=== PATIENT | male | born 1935 | race African-American/Black ===

== ENCOUNTER 2018-06-09 06:25 | Inpatient (IN) | payer SELFPAY ==
[~2018-06-09] VITALS: Ht 182.9 cm; Wt 93.1 kg
[2018-06-09] MEDS ORDERED: SODIUM CHLORIDE 0.9% 500 ML IV ONE (07:20)
[2018-06-09 07:44] LABS: BASOPHILS % 0.2 % (0.0-2.0); EOSINOPHILS % 0.1 % (0.0-5.0); HEMATOCRIT. 46.3 % (42.0-52.0); HEMOGLOBIN. 15.2 g/dL (14.0-18.0); LYMPHOCYTES % 12.7 % (20.0-50.0); MEAN CORPUSCULAR HEMOGLOBIN 29.3 pg (28.0-32.0); MEAN CORPUSCULAR VOLUME 89.6 fL (80.0-94.0); MEAN PLATELET VOLUME 7.2 fl (7.4-10.4); MONOCYTES % 4.8 % (2.0-8.0); NEUTROPHILS % 82.2 % (40.0-76.0); PLATELET 185 x1000/uL (130-400); RED BLOOD CELL COUNT 5.17 mill/uL (4.7-6.1); RED CELL DISTRIBUTION WIDTH 15.8 % (11.6-14.6)
[2018-06-09 07:50] LABS: CHLORIDE 100 mEq/L (98-107)
[2018-06-09 07:55] LABS: ETHANOL BLOOD < 10 mg/dL
[2018-06-09 09:21] LABS: CLARITY URINE CLEAR (CLEAR); COLOR URINE YELLOW (YELLOW); KETONES URINE NEGATIVE (NEGATIVE); LEUKOCYTE ESTERASE URINE 2+ (NEGATIVE); NITRITE URINE POSITIVE (NEGATIVE); OCCULT BLOOD URINE 1+ (NEGATIVE); PH URINE 7.5 (4.5-8.0); PROTEIN URINE 1+ (NEGATIVE); SPECIFIC GRAVITY URINE 1.013 (1.005-1.030)
[2018-06-09 09:37] LABS: METHADONE URINE SCREEN NEGATIVE (NEGATIVE); OPIATES URINE SCREEN NEGATIVE (NEGATIVE)
[2018-06-09 09:38] LABS: *AMPHETAMINES SCREEN URINE NEGATIVE (NEGATIVE); *BARBITURATES SCREEN URINE NEGATIVE (NEGATIVE); *BENZODIAZEPINES SCREEN URINE NEGATIVE (NEGATIVE); *COCAINE SCREEN URINE NEGATIVE (NEGATIVE); CANNABINOID URINE SCREEN NEGATIVE (NEGATIVE); PHENCYCLIDINE URINE SCREEN NEGATIVE (NEGATIVE)
[2018-06-09] MEDS ORDERED: SODIUM CHLORIDE 0.9% 1,000 ML IV ONE (10:04)
[2018-06-09] MEDS ORDERED: LEVOFLOXACIN 750MG PREMIX 150 ML IV ONE (10:15)
[2018-06-09 11:00] VITALS: BP 143/61
[2018-06-09] MEDS ORDERED: LEVE250T2 MT (12:25)
[2018-06-09] MEDS ORDERED: LOSA25TA12 MT (12:25)
[2018-06-09] MEDS ORDERED: ATOR-2 MT (12:25)
[2018-06-09] MEDS ORDERED: ALBU2.5V13 NEB (12:25)
[2018-06-09] MEDS ORDERED: TAMS0.4C31 MT (12:25)
[2018-06-09] MEDS ORDERED: TIOT18CA3 INH (12:25)
[2018-06-09] MEDS ORDERED: METO25TA6 MT (12:25)
[2018-06-09] MEDS ORDERED: CLOP75TA33 MT (12:25)
[2018-06-09] MEDS ORDERED: FAMO20TA8 MT (12:25)
[2018-06-09] MEDS ORDERED: ASPI-1159 MT (12:25)
[2018-06-09] MEDS ORDERED: ALBUTEROL (0.083%) 2.5MG/3ML NEB HHN PRN (13:30)
[2018-06-09] MEDS ORDERED: BUDESONIDE 0.5MG/2ML NEB HHN SCH ×2 (14:00)
[2018-06-09] MEDS ORDERED: DIATR MEGLU/DIATRIZOATE SOLN 30ML ONE (14:16)
[2018-06-09] MEDS ORDERED: LIDOCAINE HCL 1% 20ML VIAL (Pyxis) INJ ONE (14:16)
[2018-06-09 16:00] VITALS: BP 144/69
[2018-06-09] MEDS ORDERED: MAGNESIUM/ALUMINUM HYDROXIDE/SIMETHICONE 30ML UDC PO PRN (16:45)
[2018-06-09] MEDS ORDERED: DEXTROSE 50% WATER 50ML SYRINGE IV PRN (16:45)
[2018-06-09] MEDS: LEVETIRACETAM 250MG TABLET GT SCH ×2 (17:41→21:07)
[2018-06-09] MEDS: LOSARTAN POTASSIUM 25 MG TABLET PO SCH (17:41)
[2018-06-09] MEDS: TAMSULOSIN HCL 0.4MG SR CAPSULE PO SCH (17:41)
[2018-06-09 18:07] LABS: T4 FREE 1.25 ng/dL (0.76-1.46)
[2018-06-09 18:35] LABS: FOLIC ACID (FOLATE) SERUM 19.5 ng/mL (>5.38)
[2018-06-09] MEDS: ENOXAPARIN 40MG/0.4ML SYR SUBCUT SCH (18:37)
[2018-06-09 20:00] VITALS: BP 150/97
[2018-06-09] MEDS ORDERED: ATORVASTATIN CALCIUM 40MG TABLET PO SCH (21:00)
[2018-06-09] MEDS: FAMOTIDINE 20MG TABLET PO SCH (21:07)
[2018-06-09] MEDS: METOPROLOL TARTRATE 25MG TABLET PO SCH (21:07)
[2018-06-09] MEDS: SODIUM CHLORIDE 0.9% INJ 3ML FLUSH IVF SCH (21:07)
[2018-06-09] MEDS: SODIUM CHLORIDE 0.9% 1,000 ML IV SCH (21:15)
[2018-06-10] VITALS (43 sets, daily range): BP systolic 94–207; BP diastolic 43–110
[2018-06-10] MEDS: SODIUM CHLORIDE 0.9% INJ 3ML FLUSH IVF SCH ×3 (06:49→22:00)
[2018-06-10] MEDS: CLOPIDOGREL 75MG TABLET PO SCH (08:54)
[2018-06-10] MEDS: LEVETIRACETAM 250MG TABLET GT SCH ×2 (08:54→22:15)
[2018-06-10] MEDS: TAMSULOSIN HCL 0.4MG SR CAPSULE PO SCH (08:55)
[2018-06-10] MEDS: METOPROLOL TARTRATE 25MG TABLET PO SCH ×3 (08:55→22:16)
[2018-06-10] MEDS: ASPIRIN 81MG TABLET PO SCH (08:56)
[2018-06-10] MEDS: LOSARTAN POTASSIUM 25 MG TABLET PO SCH (08:56)
[2018-06-10] MEDS ORDERED: LEVOFLOXACIN 500MG PREMIX 100 ML IV SCH (09:00)
[2018-06-10 09:27] LABS: HEMOGLOBIN. 15.3 g/dL (14.0-18.0); MEAN CORPUSCULAR VOLUME 92.2 fL (80.0-94.0); MEAN PLATELET VOLUME 7.2 fl (7.4-10.4); PLATELET 112 x1000/uL (130-400); RED BLOOD CELL COUNT 5.09 mill/uL (4.7-6.1); RED CELL DISTRIBUTION WIDTH 15.4 % (11.6-14.6)
[2018-06-10 09:59] LABS: CHLORIDE 103 mEq/L (98-107)
[2018-06-10] MEDS: ACETAMINOPHEN 650MG/20.3ML UDC GT PRN (10:16)
[2018-06-10 11:29] LABS: PLATELET ESTIMATE SLIGHTLY DECREASED
[2018-06-10] MEDS: SODIUM CHLORIDE 0.9% 1,000 ML IV SCH ×3 (11:37→21:23)
[2018-06-10] MEDS ORDERED: NITROPRUSSIDE 50 MG in DEXT 5% WATER 248 ML IV PRN (14:00)
[2018-06-10] MEDS ORDERED: LIDOCAINE HCL 1% 20ML VIAL (Pyxis) INJ ONE (14:08)
[2018-06-10] MEDS ORDERED: DILTIAZEM HCL 5MG/ML 5ML VIAL IV NR (14:10)
[2018-06-10] MEDS ORDERED: DILTIAZEM HCL 125 MG in DEXT 5% WATER 100 ML IV PRN (14:15)
[2018-06-10] MEDS ORDERED: CLONIDINE 0.1MG TABLET PO PRN (14:15)
[2018-06-10] MEDS: CEFTAZIDIME PENTAHYDRATE 1 G in DEXTROSE 5% WATER 50 ML IV SCH ×2 (15:45→23:14)
[2018-06-10] MEDS: DIPHENHYDRAMINE 50MG/ML VIAL IV PRN (17:22)
[2018-06-10] MEDS: DOCUSATE SODIUM 100MG CAPSULE PO PRN (17:22)
[2018-06-10] MEDS: DILTIAZEM HCL 60MG TABLET PO SCH ×2 (17:23→23:15)
[2018-06-10] MEDS: ENOXAPARIN 40MG/0.4ML SYR SUBCUT SCH (17:24)
[2018-06-10] MEDS: ATORVASTATIN CALCIUM 40MG TABLET PO SCH (22:15)
[2018-06-10] MEDS: FAMOTIDINE 20MG TABLET PO SCH (22:15)
[2018-06-11] VITALS (43 sets, daily range): BP systolic 95–167; BP diastolic 26–106
[2018-06-11] MEDS: DIPHENHYDRAMINE 50MG/ML VIAL IV PRN (02:06)
[2018-06-11] MEDS: SODIUM CHLORIDE 0.9% 1,000 ML IV SCH ×4 (05:23→22:07)
[2018-06-11] MEDS: SODIUM CHLORIDE 0.9% INJ 3ML FLUSH IVF SCH ×3 (05:27→22:07)
[2018-06-11] MEDS: DILTIAZEM HCL 60MG TABLET PO SCH ×2 (06:00→12:00)
[2018-06-11 06:28] LABS: BASOPHILS % 0.2 % (0.0-2.0); EOSINOPHILS % 0.1 % (0.0-5.0); HEMOGLOBIN. 10.9 g/dL (14.0-18.0); MEAN CORPUSCULAR HEMOGLOBIN 29.2 pg (28.0-32.0); MEAN CORPUSCULAR VOLUME 88.3 fL (80.0-94.0); MEAN PLATELET VOLUME 7.9 fl (7.4-10.4); MONOCYTES % 11.8 % (2.0-8.0); NEUTROPHILS % 77.9 % (40.0-76.0); PLATELET 116 x1000/uL (130-400); RED BLOOD CELL COUNT 3.74 mill/uL (4.7-6.1); RED CELL DISTRIBUTION WIDTH 15.2 % (11.6-14.6)
[2018-06-11 06:52] LABS: CHLORIDE 108 mEq/L (98-107)
[2018-06-11 07:17] LABS: CREATINE KINASE 593 IU/L (39-308); LDL CHOLESTEROL 23 mg/dL (5-100)
[2018-06-11 07:18] LABS: HDL CHOLESTEROL 16 mg/dL (40-59)
[2018-06-11 07:21] LABS: CREATINE KINASE MB FRACTION 1.5 ng/mL (0.5-3.6)
[2018-06-11] MEDS: TAMSULOSIN HCL 0.4MG SR CAPSULE PO SCH (09:03)
[2018-06-11] MEDS: CEFTAZIDIME PENTAHYDRATE 1 G in DEXTROSE 5% WATER 50 ML IV SCH (09:03)
[2018-06-11] MEDS: CLOPIDOGREL 75MG TABLET PO SCH (09:04)
[2018-06-11] MEDS: ASPIRIN 81MG TABLET PO SCH (09:04)
[2018-06-11] MEDS: LOSARTAN POTASSIUM 25 MG TABLET PO SCH (09:04)
[2018-06-11] MEDS: METOPROLOL TARTRATE 25MG TABLET PO SCH ×2 (09:04→22:05)
[2018-06-11] MEDS: LEVETIRACETAM 250MG TABLET GT SCH (09:07)
[2018-06-11] MEDS ORDERED: MAGNESIUM 1 G PREMIX 100 ML IV NR ×2 (12:00→17:00)
[2018-06-11] MEDS ORDERED: POTASSIUM CHLORIDE 20MEQ/PACKET PO NR (15:30)
[2018-06-11 16:30] LABS: PHOSPHORUS 2.3 mg/dL (2.5-4.9)
[2018-06-11] MEDS: ENOXAPARIN 40MG/0.4ML SYR SUBCUT SCH (17:20)
[2018-06-11] MEDS: CEFAZOLIN 1000MG PREMIX 50 ML IV SCH (17:20)
[2018-06-11] MEDS ORDERED: CEFAZOLIN 1000MG PREMIX 50 ML IV SCH (18:00)
[2018-06-11 19:15] LABS: HEMATOCRIT 43.9 % (42.0-52.0); HEMOGLOBIN 14.3 g/dL (14.0-18.0)
[2018-06-11] MEDS ORDERED: RISPERIDONE 0.25MG TABLET PO SCH (21:00)
[2018-06-11] MEDS: ATORVASTATIN CALCIUM 40MG TABLET PO SCH (22:04)
[2018-06-11] MEDS: LEVETIRACETAM 500MG/5ML CUP GT SCH (22:04)
[2018-06-11] MEDS: FAMOTIDINE 20MG TABLET PO SCH (22:06)
[2018-06-12] VITALS (20 sets, daily range): BP systolic 84–168; BP diastolic 56–144
[2018-06-12] MEDS: CLONIDINE 0.1MG TABLET PO PRN ×2 (01:27→16:37)
[2018-06-12] MEDS: CEFAZOLIN 1000MG PREMIX 50 ML IV SCH ×3 (01:27→17:27)
[2018-06-12] MEDS: SODIUM CHLORIDE 0.9% 1,000 ML IV SCH ×3 (05:23→22:49)
[2018-06-12 06:05] LABS: BASOPHILS % 0.3 % (0.0-2.0); EOSINOPHILS % 0.7 % (0.0-5.0); HEMATOCRIT. 37.8 % (42.0-52.0); HEMOGLOBIN. 12.5 g/dL (14.0-18.0); MEAN CORPUSCULAR HEMOGLOBIN 29.5 pg (28.0-32.0); MEAN CORPUSCULAR VOLUME 88.8 fL (80.0-94.0); MEAN PLATELET VOLUME 7.9 fl (7.4-10.4); MONOCYTES % 13.4 % (2.0-8.0); NEUTROPHILS % 73.6 % (40.0-76.0); PLATELET 134 x1000/uL (130-400); RED BLOOD CELL COUNT 4.25 mill/uL (4.7-6.1); RED CELL DISTRIBUTION WIDTH 15.3 % (11.6-14.6)
[2018-06-12 06:16] LABS: CHLORIDE 108 mEq/L (98-107)
[2018-06-12] MEDS: SODIUM CHLORIDE 0.9% INJ 3ML FLUSH IVF SCH ×3 (07:33→22:53)
[2018-06-12] MEDS: DIPHENHYDRAMINE 50MG/ML VIAL IV PRN ×2 (08:47→16:08)
[2018-06-12] MEDS: LOSARTAN POTASSIUM 25 MG TABLET PO SCH (08:49)
[2018-06-12] MEDS: CLOPIDOGREL 75MG TABLET PO SCH (08:49)
[2018-06-12] MEDS: ASPIRIN 81MG TABLET PO SCH (08:49)
[2018-06-12] MEDS: FAMOTIDINE 20MG TABLET PO SCH ×2 (08:49→22:23)
[2018-06-12] MEDS: LEVETIRACETAM 500MG/5ML CUP GT SCH ×2 (08:49→22:23)
[2018-06-12] MEDS: METOPROLOL TARTRATE 25MG TABLET PO SCH ×2 (08:50→22:23)
[2018-06-12] MEDS: TAMSULOSIN HCL 0.4MG SR CAPSULE PO SCH (08:52)
[2018-06-12] MEDS ORDERED: DONE23TA3 PO (09:26)
[2018-06-12] MEDS: RISPERIDONE 0.5MG TABLET PO SCH (09:58)
[2018-06-12] MEDS ORDERED: LORAZEPAM 2MG/ML CPJ IV PRN (10:30)
[2018-06-12] MEDS: ENOXAPARIN 40MG/0.4ML SYR SUBCUT SCH (17:27)
[2018-06-12] MEDS: ATORVASTATIN CALCIUM 40MG TABLET PO SCH (22:22)
[2018-06-13] VITALS (13 sets, daily range): BP systolic 107–216; BP diastolic 53–116
[2018-06-13] MEDS: CEFAZOLIN 1000MG PREMIX 50 ML IV SCH ×3 (02:11→17:02)
[2018-06-13] MEDS: SODIUM CHLORIDE 0.9% INJ 3ML FLUSH IVF SCH ×3 (06:42→22:22)
[2018-06-13 07:10] LABS: BASOPHILS % 0.3 % (0.0-2.0); EOSINOPHILS % 0.3 % (0.0-5.0); HEMATOCRIT. 37.1 % (42.0-52.0); HEMOGLOBIN. 12.5 g/dL (14.0-18.0); LYMPHOCYTES % 9.7 % (20.0-50.0); MEAN CORPUSCULAR HEMOGLOBIN 29.4 pg (28.0-32.0); MEAN CORPUSCULAR VOLUME 87.3 fL (80.0-94.0); MEAN PLATELET VOLUME 7.6 fl (7.4-10.4); MONOCYTES % 8.7 % (2.0-8.0); PLATELET 126 x1000/uL (130-400); RED BLOOD CELL COUNT 4.25 mill/uL (4.7-6.1); RED CELL DISTRIBUTION WIDTH 15.1 % (11.6-14.6)
[2018-06-13] MEDS: SODIUM CHLORIDE 0.9% 1,000 ML IV SCH ×2 (07:41→13:46)
[2018-06-13 07:59] LABS: CHLORIDE 108 mEq/L (98-107)
[2018-06-13] MEDS: ASPIRIN 81MG TABLET PO SCH (08:28)
[2018-06-13] MEDS: LEVETIRACETAM 500MG/5ML CUP GT SCH ×2 (08:28→20:14)
[2018-06-13] MEDS: FAMOTIDINE 20MG TABLET PO SCH ×2 (08:29→20:14)
[2018-06-13] MEDS: METOPROLOL TARTRATE 25MG TABLET PO SCH ×3 (08:29→21:50)
[2018-06-13] MEDS: TAMSULOSIN HCL 0.4MG SR CAPSULE PO SCH (08:29)
[2018-06-13] MEDS: LOSARTAN POTASSIUM 25 MG TABLET PO SCH (08:29)
[2018-06-13] MEDS: RISPERIDONE 0.5MG TABLET PO SCH (08:29)
[2018-06-13] MEDS: CLOPIDOGREL 75MG TABLET PO SCH (08:31)
[2018-06-13] MEDS: ACETAMINOPHEN 650MG/20.3ML UDC GT PRN (12:44)
[2018-06-13] MEDS: HYDRALAZINE 20MG/ML VIAL IV PRN (12:52)
[2018-06-13] MEDS ORDERED: DILTIAZEM HCL 5MG/ML 5ML VIAL IV PRN (14:15)
[2018-06-13] MEDS: DEXT 5%/0.9% NACL 1,000 ML IV SCH (14:32)
[2018-06-13] MEDS ORDERED: DILTIAZEM HCL 5MG/ML 5ML VIAL IV NR (16:15)
[2018-06-13] MEDS: DILTIAZEM HCL 125 MG in DEXT 5% WATER 100 ML IV SCH (16:37)
[2018-06-13] MEDS: ENOXAPARIN 40MG/0.4ML SYR SUBCUT SCH (17:01)
[2018-06-13] MEDS: ATORVASTATIN CALCIUM 40MG TABLET PO SCH (20:14)
[2018-06-14] VITALS (12 sets, daily range): BP systolic 118–157; BP diastolic 47–113
[2018-06-14] MEDS: CEFAZOLIN 1000MG PREMIX 50 ML IV SCH ×3 (03:17→19:00)
[2018-06-14] MEDS: SODIUM CHLORIDE 0.9% INJ 3ML FLUSH IVF SCH ×3 (05:04→21:42)
[2018-06-14] MEDS: DEXT 5%/0.9% NACL 1,000 ML IV SCH (06:27)
[2018-06-14] MEDS: DILTIAZEM HCL 125 MG in DEXT 5% WATER 100 ML IV SCH (06:57)
[2018-06-14 07:05] LABS: BASOPHILS % 0.4 % (0.0-2.0); EOSINOPHILS % 0.3 % (0.0-5.0); HEMATOCRIT. 34.1 % (42.0-52.0); HEMOGLOBIN. 11.8 g/dL (14.0-18.0); LYMPHOCYTES % 13.9 % (20.0-50.0); MEAN CORPUSCULAR HEMOGLOBIN 30.2 pg (28.0-32.0); MEAN CORPUSCULAR VOLUME 86.9 fL (80.0-94.0); MONOCYTES % 13.1 % (2.0-8.0); NEUTROPHILS % 72.3 % (40.0-76.0); PLATELET 112 x1000/uL (130-400); RED BLOOD CELL COUNT 3.93 mill/uL (4.7-6.1); RED CELL DISTRIBUTION WIDTH 15.6 % (11.6-14.6)
[2018-06-14 07:16] LABS: CHLORIDE 108 mEq/L (98-107)
[2018-06-14] MEDS: METOPROLOL TARTRATE 25MG TABLET PO SCH ×2 (09:15→20:21)
[2018-06-14] MEDS: DOCUSATE SODIUM 100MG CAPSULE PO PRN (09:15)
[2018-06-14] MEDS: TAMSULOSIN HCL 0.4MG SR CAPSULE PO SCH (09:15)
[2018-06-14] MEDS: LEVETIRACETAM 500MG/5ML CUP GT SCH ×2 (09:15→20:20)
[2018-06-14] MEDS: ASPIRIN 81MG TABLET PO SCH (09:15)
[2018-06-14] MEDS: CLOPIDOGREL 75MG TABLET PO SCH (09:16)
[2018-06-14] MEDS: FAMOTIDINE 20MG TABLET PO SCH ×2 (09:16→20:21)
[2018-06-14] MEDS: LOSARTAN POTASSIUM 25 MG TABLET PO SCH (09:16)
[2018-06-14] MEDS: DILTIAZEM HCL 60MG TABLET PO SCH ×2 (12:54→19:01)
[2018-06-14] MEDS: DIPHENHYDRAMINE 50MG/ML VIAL IV PRN (12:54)
[2018-06-14] MEDS: ACETAMINOPHEN 650MG/20.3ML UDC GT PRN (12:55)
[2018-06-14] MEDS: ENOXAPARIN 40MG/0.4ML SYR SUBCUT SCH (19:01)
[2018-06-14] MEDS: ATORVASTATIN CALCIUM 40MG TABLET PO SCH (20:20)
[2018-06-15] VITALS (15 sets, daily range): BP systolic 132–200; BP diastolic 58–98
[2018-06-15] MEDS: DILTIAZEM HCL 60MG TABLET PO SCH ×4 (00:33→17:23)
[2018-06-15] MEDS: DEXT 5%/0.9% NACL 1,000 ML IV SCH ×2 (00:34→09:03)
[2018-06-15] MEDS: CEFAZOLIN 1000MG PREMIX 50 ML IV SCH ×3 (01:06→17:29)
[2018-06-15] MEDS: SODIUM CHLORIDE 0.9% INJ 3ML FLUSH IVF SCH ×3 (05:22→21:50)
[2018-06-15] MEDS: LEVETIRACETAM 500MG/5ML CUP GT SCH ×2 (08:59→21:00)
[2018-06-15] MEDS: CLOPIDOGREL 75MG TABLET PO SCH (09:00)
[2018-06-15] MEDS: LOSARTAN POTASSIUM 25 MG TABLET PO SCH (09:00)
[2018-06-15] MEDS: ASPIRIN 81MG TABLET PO SCH (09:00)
[2018-06-15] MEDS: TAMSULOSIN HCL 0.4MG SR CAPSULE PO SCH (09:00)
[2018-06-15] MEDS: METOPROLOL TARTRATE 25MG TABLET PO SCH ×2 (09:00→21:00)
[2018-06-15] MEDS: FAMOTIDINE 20MG TABLET PO SCH ×2 (09:00→21:00)
[2018-06-15] MEDS: ENOXAPARIN 40MG/0.4ML SYR SUBCUT SCH (17:00)
[2018-06-15] MEDS: HYDRALAZINE 20MG/ML VIAL IV PRN ×2 (17:33→23:06)
[2018-06-15] MEDS: RISPERIDONE 0.25MG TABLET PO SCH (21:00)
[2018-06-15] MEDS: ATORVASTATIN CALCIUM 40MG TABLET PO SCH (21:00)
[2018-06-16] VITALS (12 sets, daily range): BP systolic 133–161; BP diastolic 59–85
[2018-06-16] MEDS: CEFAZOLIN 1000MG PREMIX 50 ML IV SCH ×3 (04:57→17:48)
[2018-06-16] MEDS: SODIUM CHLORIDE 0.9% INJ 3ML FLUSH IVF SCH ×3 (04:57→21:18)
[2018-06-16] MEDS: DILTIAZEM HCL 60MG TABLET PO SCH ×4 (04:58→17:46)
[2018-06-16] MEDS: DEXT 5%/0.9% NACL 1,000 ML IV SCH (05:01)
[2018-06-16 06:40] LABS: BASOPHILS % 0.3 % (0.0-2.0); EOSINOPHILS % 1.2 % (0.0-5.0); HEMATOCRIT. 35.8 % (42.0-52.0); HEMOGLOBIN. 12.2 g/dL (14.0-18.0); LYMPHOCYTES % 16.7 % (20.0-50.0); MEAN CORPUSCULAR HEMOGLOBIN 29.5 pg (28.0-32.0); MEAN CORPUSCULAR VOLUME 86.2 fL (80.0-94.0); MEAN PLATELET VOLUME 8.1 fl (7.4-10.4); MONOCYTES % 13.5 % (2.0-8.0); NEUTROPHILS % 68.3 % (40.0-76.0); PLATELET 174 x1000/uL (130-400); RED BLOOD CELL COUNT 4.15 mill/uL (4.7-6.1); RED CELL DISTRIBUTION WIDTH 15.3 % (11.6-14.6)
[2018-06-16 06:41] LABS: PARTIAL THROMBOPLASTIN TIME 34.5 sec (23.4-31.0); PROTHROMBIN TIME 10.3 sec (9.1-11.1)
[2018-06-16 07:11] LABS: CHLORIDE 103 mEq/L (98-107)
[2018-06-16 07:26] LABS: PHOSPHORUS 2.1 mg/dL (2.5-4.9)
[2018-06-16] MEDS: LEVETIRACETAM 500MG/5ML CUP GT SCH (08:36)
[2018-06-16] MEDS: ASPIRIN 81MG TABLET PO SCH (08:36)
[2018-06-16] MEDS: CLOPIDOGREL 75MG TABLET PO SCH (08:37)
[2018-06-16] MEDS: FAMOTIDINE 20MG TABLET PO SCH (08:37)
[2018-06-16] MEDS: LOSARTAN POTASSIUM 25 MG TABLET PO SCH ×2 (08:37→17:46)
[2018-06-16] MEDS: METOPROLOL TARTRATE 25MG TABLET PO SCH ×3 (08:37→21:17)
[2018-06-16] MEDS: TAMSULOSIN HCL 0.4MG SR CAPSULE PO SCH (08:37)
[2018-06-16] MEDS: LEVETIRACETAM 250 MG in SODIUM CHLORIDE 0.9% 100 ML IV SCH ×2 (10:21→21:18)
[2018-06-16] MEDS ORDERED: DIPHENHYDRAMINE 50MG/ML VIAL ONE (13:05)
[2018-06-16] MEDS ORDERED: MIDAZOLAM HCL 5 MG/5 ML VIAL ONE (13:05)
[2018-06-16] MEDS ORDERED: FENTANYL CITRATE/PF 50MCG/ML 2ML VIAL ONE (13:06)
[2018-06-16] MEDS ORDERED: MIDAZOLAM HCL 2 MG/2 ML VIAL IV PRN (13:51)
[2018-06-16] MEDS ORDERED: FENTANYL CITRATE/PF 50MCG/ML 2ML VIAL IV PRN (13:53)
[2018-06-16] MEDS ORDERED: SODIUM CHLORIDE 0.9% 10ML VIAL ONE (14:11)
[2018-06-16] MEDS ORDERED: SUCRALFATE 1 G/10 ML UDC GT SCH (17:30)
[2018-06-16] MEDS: SUCRALFATE 1 G/10 ML UDC GT SCH (17:45)
[2018-06-16] MEDS: ENOXAPARIN 40MG/0.4ML SYR SUBCUT SCH (17:48)
[2018-06-16] MEDS: METOCLOPRAMIDE HCL 10MG/2ML VIAL IV SCH (18:03)
[2018-06-16] MEDS: ATORVASTATIN CALCIUM 40MG TABLET PO SCH (21:17)
[2018-06-16] MEDS: RISPERIDONE 0.25MG TABLET PO SCH (21:18)
[2018-06-17] VITALS (12 sets, daily range): BP systolic 121–167; BP diastolic 52–83
[2018-06-17] MEDS: SUCRALFATE 1 G/10 ML UDC GT SCH ×5 (00:58→23:39)
[2018-06-17] MEDS: METOCLOPRAMIDE HCL 10MG/2ML VIAL IV SCH ×5 (00:59→23:39)
[2018-06-17] MEDS: DILTIAZEM HCL 60MG TABLET PO SCH ×2 (00:59→06:22)
[2018-06-17] MEDS: CEFAZOLIN 1000MG PREMIX 50 ML IV SCH ×2 (01:00→10:51)
[2018-06-17] MEDS: OMEPRAZOLE 20MG CAPSULE EXTENDED RELEASE PO SCH (06:22)
[2018-06-17] MEDS: SODIUM CHLORIDE 0.9% INJ 3ML FLUSH IVF SCH ×3 (06:23→22:00)
[2018-06-17] MEDS: DEXT 5%/0.9% NACL 1,000 ML IV SCH (06:26)
[2018-06-17 06:36] LABS: BASOPHILS % 0.5 % (0.0-2.0); EOSINOPHILS % 1.1 % (0.0-5.0); HEMATOCRIT. 37.6 % (42.0-52.0); HEMOGLOBIN. 12.8 g/dL (14.0-18.0); MEAN CORPUSCULAR HEMOGLOBIN 29.5 pg (28.0-32.0); MEAN PLATELET VOLUME 7.9 fl (7.4-10.4); MONOCYTES % 12.8 % (2.0-8.0); NEUTROPHILS % 67.6 % (40.0-76.0); PLATELET 218 x1000/uL (130-400); RED BLOOD CELL COUNT 4.33 mill/uL (4.7-6.1); RED CELL DISTRIBUTION WIDTH 15.5 % (11.6-14.6)
[2018-06-17 06:44] LABS: CHLORIDE 105 mEq/L (98-107)
[2018-06-17] MEDS: LEVETIRACETAM 250 MG in SODIUM CHLORIDE 0.9% 100 ML IV SCH ×2 (09:23→23:38)
[2018-06-17] MEDS: ASPIRIN 81MG TABLET PO SCH (09:23)
[2018-06-17] MEDS: TAMSULOSIN HCL 0.4MG SR CAPSULE PO SCH (09:23)
[2018-06-17] MEDS: CLOPIDOGREL 75MG TABLET PO SCH (09:24)
[2018-06-17] MEDS: LOSARTAN POTASSIUM 25 MG TABLET PO SCH ×2 (09:24→21:53)
[2018-06-17] MEDS: METOPROLOL TARTRATE 25MG TABLET PO SCH ×2 (09:24→21:53)
[2018-06-17] MEDS: DILTIAZEM HCL 30MG TABLET PO SCH ×2 (13:46→21:59)
[2018-06-17] MEDS: RISPERIDONE 0.25MG TABLET PO SCH (21:52)
[2018-06-17] MEDS: ATORVASTATIN CALCIUM 40MG TABLET PO SCH (21:53)
[2018-06-17] MEDS: ENOXAPARIN 30MG/0.3ML SYR SUBCUT SCH (21:54)
[2018-06-18] VITALS: BP 149/62
[2018-06-18 04:00] VITALS: BP 173/68
[2018-06-18 06:00] VITALS: BP 135/69
[2018-06-18] MEDS: DILTIAZEM HCL 30MG TABLET PO SCH ×3 (06:00→21:37)
[2018-06-18] MEDS: SUCRALFATE 1 G/10 ML UDC GT SCH ×3 (06:15→17:27)
[2018-06-18] MEDS: METOCLOPRAMIDE HCL 10MG/2ML VIAL IV SCH ×3 (06:15→17:27)
[2018-06-18] MEDS: OMEPRAZOLE 20MG CAPSULE EXTENDED RELEASE PO SCH (06:18)
[2018-06-18] MEDS: SODIUM CHLORIDE 0.9% INJ 3ML FLUSH IVF SCH ×3 (06:19→21:38)
[2018-06-18 08:00] VITALS: BP 151/83
[2018-06-18] MEDS: CLOPIDOGREL 75MG TABLET PO SCH (08:51)
[2018-06-18] MEDS: ASPIRIN 81MG TABLET PO SCH (08:52)
[2018-06-18] MEDS: LOSARTAN POTASSIUM 25 MG TABLET PO SCH ×2 (08:52→21:36)
[2018-06-18] MEDS: METOPROLOL TARTRATE 25MG TABLET PO SCH ×2 (08:52→21:36)
[2018-06-18] MEDS: TAMSULOSIN HCL 0.4MG SR CAPSULE PO SCH (08:52)
[2018-06-18] MEDS: ENOXAPARIN 30MG/0.3ML SYR SUBCUT SCH ×2 (08:52→21:35)
[2018-06-18 12:00] VITALS: BP 140/68
[2018-06-18] MEDS: LEVETIRACETAM 250 MG in SODIUM CHLORIDE 0.9% 100 ML IV SCH ×2 (12:03→21:35)
[2018-06-18 16:00] VITALS: BP 132/78
[2018-06-18] MEDS: RISPERIDONE 0.25MG TABLET PO SCH (21:35)
[2018-06-18] MEDS: ATORVASTATIN CALCIUM 40MG TABLET PO SCH (21:35)
[2018-06-19] VITALS (8 sets, daily range): BP systolic 114–166; BP diastolic 52–86
[2018-06-19] MEDS: METOCLOPRAMIDE HCL 10MG/2ML VIAL IV SCH (00:24)
[2018-06-19] MEDS: SUCRALFATE 1 G/10 ML UDC GT SCH ×4 (00:24→18:00)
[2018-06-19] MEDS: SODIUM CHLORIDE 0.9% INJ 3ML FLUSH IVF SCH ×3 (05:38→21:28)
[2018-06-19] MEDS: DILTIAZEM HCL 30MG TABLET PO SCH ×3 (05:38→21:27)
[2018-06-19] MEDS: ENOXAPARIN 30MG/0.3ML SYR SUBCUT SCH ×2 (08:35→21:27)
[2018-06-19] MEDS: METOPROLOL TARTRATE 25MG TABLET PO SCH ×2 (08:36→21:26)
[2018-06-19] MEDS: LOSARTAN POTASSIUM 25 MG TABLET PO SCH ×2 (08:36→21:27)
[2018-06-19] MEDS: ASPIRIN 81MG TABLET PO SCH (08:36)
[2018-06-19] MEDS: CLOPIDOGREL 75MG TABLET PO SCH (08:36)
[2018-06-19] MEDS: TAMSULOSIN HCL 0.4MG SR CAPSULE PO SCH (08:36)
[2018-06-19] MEDS: LEVETIRACETAM 250 MG in SODIUM CHLORIDE 0.9% 100 ML IV SCH ×2 (11:14→21:27)
[2018-06-19] MEDS: ATORVASTATIN CALCIUM 40MG TABLET PO SCH (21:26)
[2018-06-19] MEDS: RISPERIDONE 0.25MG TABLET PO SCH (21:26)
[2018-06-20] VITALS: BP 167/80
[2018-06-20] MEDS: SUCRALFATE 1 G/10 ML UDC GT SCH ×3 (00:09→12:43)
[2018-06-20 04:00] VITALS: BP 123/88
[2018-06-20] MEDS: DILTIAZEM HCL 30MG TABLET PO SCH ×3 (05:27→21:19)
[2018-06-20] MEDS: SODIUM CHLORIDE 0.9% INJ 3ML FLUSH IVF SCH ×3 (05:27→21:18)
[2018-06-20 08:00] VITALS: BP 101/62
[2018-06-20] MEDS: METOPROLOL TARTRATE 25MG TABLET PO SCH ×2 (09:00→21:06)
[2018-06-20] MEDS: LOSARTAN POTASSIUM 25 MG TABLET PO SCH ×3 (09:00→21:07)
[2018-06-20] MEDS: CLOPIDOGREL 75MG TABLET PO SCH (09:13)
[2018-06-20] MEDS: LEVETIRACETAM 250 MG in SODIUM CHLORIDE 0.9% 100 ML IV SCH ×2 (09:13→21:18)
[2018-06-20] MEDS: ENOXAPARIN 30MG/0.3ML SYR SUBCUT SCH ×2 (09:13→21:05)
[2018-06-20] MEDS: TAMSULOSIN HCL 0.4MG SR CAPSULE PO SCH (09:13)
[2018-06-20] MEDS: ASPIRIN 81MG TABLET PO SCH (09:29)
[2018-06-20 12:00] VITALS: BP 118/56
[2018-06-20 16:00] VITALS: BP 155/67
[2018-06-20] MEDS: ACETAMINOPHEN 650MG/20.3ML UDC GT PRN (17:37)
[2018-06-20 20:10] VITALS: BP 124/51
[2018-06-20] MEDS: ATORVASTATIN CALCIUM 40MG TABLET PO SCH (21:05)
[2018-06-20] MEDS: RISPERIDONE 0.25MG TABLET PO SCH (21:06)
[2018-06-21] VITALS: BP 119/62
[2018-06-21] MEDS: SUCRALFATE 1 G/10 ML UDC GT SCH ×5 (00:14→23:57)
[2018-06-21 04:42] VITALS: BP 155/69
[2018-06-21] MEDS: SODIUM CHLORIDE 0.9% INJ 3ML FLUSH IVF SCH ×3 (05:39→20:59)
[2018-06-21] MEDS: DILTIAZEM HCL 30MG TABLET PO SCH ×2 (05:39→17:47)
[2018-06-21] MEDS: ASPIRIN 81MG TABLET PO SCH (11:46)
[2018-06-21] MEDS: METOPROLOL TARTRATE 25MG TABLET PO SCH ×3 (11:47→21:00)
[2018-06-21] MEDS: LEVETIRACETAM 250 MG in SODIUM CHLORIDE 0.9% 100 ML IV SCH ×2 (11:49→20:57)
[2018-06-21] MEDS: ENOXAPARIN 30MG/0.3ML SYR SUBCUT SCH ×2 (11:49→20:59)
[2018-06-21 12:00] VITALS: BP 126/57
[2018-06-21] MEDS: TAMSULOSIN HCL 0.4MG SR CAPSULE PO SCH (12:00)
[2018-06-21] MEDS: CLOPIDOGREL 75MG TABLET PO SCH (12:03)
[2018-06-21 20:37] VITALS: BP 146/83
[2018-06-21] MEDS: LOSARTAN POTASSIUM 25 MG TABLET PO SCH (20:57)
[2018-06-21] MEDS: RISPERIDONE 0.25MG TABLET PO SCH (20:58)
[2018-06-21] MEDS: ATORVASTATIN CALCIUM 40MG TABLET PO SCH (20:58)
[2018-06-22] VITALS (7 sets, daily range): BP systolic 113–146; BP diastolic 55–78
[2018-06-22] MEDS: DILTIAZEM HCL 30MG TABLET PO SCH ×3 (01:53→18:07)
[2018-06-22] MEDS: SUCRALFATE 1 G/10 ML UDC GT SCH ×3 (05:38→18:07)
[2018-06-22] MEDS: SODIUM CHLORIDE 0.9% INJ 3ML FLUSH IVF SCH ×2 (05:39→14:00)
[2018-06-22 05:40] LABS: CHLORIDE 101 mEq/L (98-107)
[2018-06-22 05:41] LABS: BASOPHILS % 0.6 % (0.0-2.0); EOSINOPHILS % 2.2 % (0.0-5.0); HEMATOCRIT. 36.6 % (42.0-52.0); HEMOGLOBIN. 12.3 g/dL (14.0-18.0); MEAN CORPUSCULAR HEMOGLOBIN 29.4 pg (28.0-32.0); MEAN CORPUSCULAR VOLUME 87.1 fL (80.0-94.0); MEAN PLATELET VOLUME 7.4 fl (7.4-10.4); NEUTROPHILS % 58.2 % (40.0-76.0); PLATELET 317 x1000/uL (130-400); RED CELL DISTRIBUTION WIDTH 15.3 % (11.6-14.6)
[2018-06-22] MEDS: ASPIRIN 81MG TABLET PO SCH (10:12)
[2018-06-22] MEDS: CLOPIDOGREL 75MG TABLET PO SCH (10:12)
[2018-06-22] MEDS: LOSARTAN POTASSIUM 25 MG TABLET PO SCH ×2 (10:12→23:22)
[2018-06-22] MEDS: TAMSULOSIN HCL 0.4MG SR CAPSULE PO SCH (10:13)
[2018-06-22] MEDS: ENOXAPARIN 30MG/0.3ML SYR SUBCUT SCH ×2 (10:13→23:21)
[2018-06-22] MEDS: LEVETIRACETAM 250 MG in SODIUM CHLORIDE 0.9% 100 ML IV SCH ×2 (10:13→23:20)
[2018-06-22] MEDS: ATORVASTATIN CALCIUM 40MG TABLET PO SCH (23:21)
[2018-06-22] MEDS: METOPROLOL TARTRATE 25MG TABLET PO SCH (23:22)
[2018-06-22] MEDS: RISPERIDONE 0.25MG TABLET PO SCH (23:23)
[2018-06-23] VITALS (7 sets, daily range): BP systolic 111–159; BP diastolic 42–82
[2018-06-23] MEDS: SUCRALFATE 1 G/10 ML UDC GT SCH ×4 (02:19→17:09)
[2018-06-23] MEDS: DILTIAZEM HCL 30MG TABLET PO SCH ×3 (02:20→17:14)
[2018-06-23] MEDS: SODIUM CHLORIDE 0.9% INJ 3ML FLUSH IVF SCH ×3 (07:25→22:15)
[2018-06-23] MEDS: LOSARTAN POTASSIUM 25 MG TABLET PO SCH ×2 (09:00→20:57)
[2018-06-23] MEDS: METOPROLOL TARTRATE 25MG TABLET PO SCH ×3 (09:00→20:58)
[2018-06-23] MEDS: LEVETIRACETAM 250 MG in SODIUM CHLORIDE 0.9% 100 ML IV SCH ×2 (09:22→22:14)
[2018-06-23] MEDS: ENOXAPARIN 30MG/0.3ML SYR SUBCUT SCH ×2 (09:22→20:59)
[2018-06-23] MEDS: ASPIRIN 81MG TABLET PO SCH (09:23)
[2018-06-23] MEDS: CLOPIDOGREL 75MG TABLET PO SCH (09:23)
[2018-06-23] MEDS: TAMSULOSIN HCL 0.4MG SR CAPSULE PO SCH (09:24)
[2018-06-23] MEDS: ATORVASTATIN CALCIUM 40MG TABLET PO SCH (20:57)
[2018-06-23] MEDS: RISPERIDONE 0.25MG TABLET PO SCH (20:58)
[2018-06-24] MEDS: SUCRALFATE 1 G/10 ML UDC GT SCH ×5 (01:17→23:47)
[2018-06-24 04:00] VITALS: BP 146/82
[2018-06-24] MEDS: DILTIAZEM HCL 30MG TABLET PO SCH ×3 (04:33→17:52)
[2018-06-24] MEDS: SODIUM CHLORIDE 0.9% INJ 3ML FLUSH IVF SCH ×3 (06:37→21:06)
[2018-06-24 08:00] VITALS: BP 108/60
[2018-06-24] MEDS: LOSARTAN POTASSIUM 25 MG TABLET PO SCH ×2 (08:13→21:00)
[2018-06-24] MEDS: METOPROLOL TARTRATE 25MG TABLET PO SCH ×2 (08:14→20:46)
[2018-06-24] MEDS ORDERED: HYDRALAZINE 10 MG in SODIUM CHLORIDE 0.9% 49.5 ML IV PRN (08:15)
[2018-06-24] MEDS: ASPIRIN 81MG TABLET PO SCH (09:18)
[2018-06-24] MEDS: CLOPIDOGREL 75MG TABLET PO SCH (09:18)
[2018-06-24] MEDS: TAMSULOSIN HCL 0.4MG SR CAPSULE PO SCH (09:18)
[2018-06-24] MEDS: ENOXAPARIN 30MG/0.3ML SYR SUBCUT SCH ×2 (09:20→20:43)
[2018-06-24] MEDS: LEVETIRACETAM 250 MG in SODIUM CHLORIDE 0.9% 100 ML IV SCH ×2 (10:11→20:43)
[2018-06-24 12:00] VITALS: BP 101/58
[2018-06-24 16:00] VITALS: BP 127/72
[2018-06-24 20:00] VITALS: BP 141/79
[2018-06-24] MEDS: ATORVASTATIN CALCIUM 40MG TABLET PO SCH (20:44)
[2018-06-24] MEDS: RISPERIDONE 0.25MG TABLET PO SCH (20:46)
[2018-06-25] VITALS: BP 122/50
[2018-06-25] MEDS: DILTIAZEM HCL 30MG TABLET PO SCH ×3 (02:42→17:57)
[2018-06-25 04:00] VITALS: BP 109/53
[2018-06-25] MEDS: SUCRALFATE 1 G/10 ML UDC GT SCH ×3 (06:02→17:56)
[2018-06-25] MEDS: SODIUM CHLORIDE 0.9% INJ 3ML FLUSH IVF SCH (06:02)
[2018-06-25 08:00] VITALS: BP 150/73
[2018-06-25] MEDS: TAMSULOSIN HCL 0.4MG SR CAPSULE PO SCH (09:43)
[2018-06-25] MEDS: LOSARTAN POTASSIUM 25 MG TABLET PO SCH ×2 (09:43→21:24)
[2018-06-25] MEDS: ASPIRIN 81MG TABLET PO SCH (09:43)
[2018-06-25] MEDS: CLOPIDOGREL 75MG TABLET PO SCH (09:43)
[2018-06-25] MEDS: METOPROLOL TARTRATE 25MG TABLET PO SCH ×2 (09:43→21:27)
[2018-06-25] MEDS: LEVETIRACETAM 250 MG in SODIUM CHLORIDE 0.9% 100 ML IV SCH ×2 (09:44→21:28)
[2018-06-25] MEDS: ENOXAPARIN 30MG/0.3ML SYR SUBCUT SCH ×2 (09:44→21:41)
[2018-06-25 12:00] VITALS: BP 94/51
[2018-06-25 16:00] VITALS: BP 127/56
[2018-06-25 20:00] VITALS: BP 141/60
[2018-06-25] MEDS: ATORVASTATIN CALCIUM 40MG TABLET PO SCH (21:23)
[2018-06-25] MEDS: RISPERIDONE 0.25MG TABLET PO SCH (21:27)
[2018-06-26] VITALS: BP 136/50
[2018-06-26] MEDS: SUCRALFATE 1 G/10 ML UDC GT SCH ×2 (00:32→05:25)
[2018-06-26] MEDS: DILTIAZEM HCL 30MG TABLET PO SCH ×2 (02:12→09:26)
[2018-06-26 04:00] VITALS: BP 120/49
[2018-06-26 07:52] LABS: BASOPHILS % 0.8 % (0.0-2.0); HEMATOCRIT. 38.3 % (42.0-52.0); HEMOGLOBIN. 12.8 g/dL (14.0-18.0); LYMPHOCYTES % 19.1 % (20.0-50.0); MEAN CORPUSCULAR HEMOGLOBIN 29.2 pg (28.0-32.0); MEAN CORPUSCULAR VOLUME 87.2 fL (80.0-94.0); MEAN PLATELET VOLUME 7.4 fl (7.4-10.4); MONOCYTES % 10.8 % (2.0-8.0); NEUTROPHILS % 68.3 % (40.0-76.0); PLATELET 321 x1000/uL (130-400); RED BLOOD CELL COUNT 4.39 mill/uL (4.7-6.1); RED CELL DISTRIBUTION WIDTH 14.8 % (11.6-14.6)
[2018-06-26 08:00] VITALS: BP 179/75
[2018-06-26 08:24] LABS: CHLORIDE 99 mEq/L (98-107)
[2018-06-26] MEDS: TAMSULOSIN HCL 0.4MG SR CAPSULE PO SCH (09:25)
[2018-06-26] MEDS: ENOXAPARIN 30MG/0.3ML SYR SUBCUT SCH (09:25)
[2018-06-26] MEDS: METOPROLOL TARTRATE 25MG TABLET PO SCH (09:26)
[2018-06-26] MEDS: ASPIRIN 81MG TABLET PO SCH (09:26)
[2018-06-26] MEDS: LOSARTAN POTASSIUM 25 MG TABLET PO SCH (09:26)
[2018-06-26] MEDS: CLOPIDOGREL 75MG TABLET PO SCH (09:26)
[2018-06-26] MEDS: LEVETIRACETAM 250 MG in SODIUM CHLORIDE 0.9% 100 ML IV SCH (09:27)
[2018-06-26 12:00] VITALS: BP 131/56
[2018-06-26 12:46] VITALS: BP 131/56
== END 2018-06-26 12:40 | disposition home or self-care (01) | DRG 813 ==
LOC: ER 06:25 → 5WST 09:21 → EDBEDREQ 09:38 → EDBEDREQTM 09:38 → ENRESERV 10:06 → 5WST 21:51 → MICUNO 06-10 13:46 → 5EST 06-12 12:20 → 6WST 06-17 18:40 → 6EST 06-22 18:10
PROVIDERS: ADMIT Family Medicine Adult Medicine; ATTEND Family Medicine Adult Medicine
PROC: 05HY33Z Insertion of Infusion Device into Upper Vein, Percutaneous Approach (ICD-10-PCS; 2018-06-10)
PROC: B54MZZA Ultrasonography of Right Upper Extremity Veins, Guidance (ICD-10-PCS; 2018-06-10)
PROC: 4A00X4Z Measurement of Central Nervous Electrical Activity, External Approach (ICD-10-PCS; 2018-06-11)
PROC: 0DB68ZX Excision of Stomach, Via Natural or Artificial Opening Endoscopic, Diagnostic (ICD-10-PCS; principal; 2018-06-16)
PROC: 0DH63UZ Insertion of Feeding Device into Stomach, Percutaneous Approach (ICD-10-PCS; 2018-06-16)
DX: T85.528A Displacement of other gastrointestinal prosthetic devices, implants and grafts, initial encounter (principal); A41.9 Sepsis, unspecified organism; G92 Toxic encephalopathy; R13.10 Dysphagia, unspecified; E87.2 Acidosis; K94.23 Gastrostomy malfunction; D69.6 Thrombocytopenia, unspecified; G40.909 Epilepsy, unspecified, not intractable, without status epilepticus; I48.91 Unspecified atrial fibrillation; Y92.89 Other specified places as the place of occurrence of the external cause; I47.1 Supraventricular tachycardia; Z78.1 Physical restraint status; D64.9 Anemia, unspecified; E78.00 Pure hypercholesterolemia, unspecified; N39.0 Urinary tract infection, site not specified; G30.9 Alzheimer's disease, unspecified; F02.80 Dementia in other diseases classified elsewhere, unspecified severity, without behavioral disturbance, psychotic disturbance, mood disturbance, and anxiety; B96.20 Unspecified Escherichia coli [E. coli] as the cause of diseases classified elsewhere; I10 Essential (primary) hypertension; K29.70 Gastritis, unspecified, without bleeding; K29.60 Other gastritis without bleeding; K29.80 Duodenitis without bleeding; R29.6 Repeated falls; E78.5 Hyperlipidemia, unspecified; Y83.8 Other surgical procedures as the cause of abnormal reaction of the patient, or of later complication, without mention of misadventure at the time of the procedure; Y82.8 Other medical devices associated with adverse incidents; I69.320 Aphasia following cerebral infarction; I69.391 Dysphagia following cerebral infarction
CPT/HCPCS: 36415; 36569; 49450; 70551; 71045; 73630; 76937; 80048; 80061; 80305; 80307; 80329; 82140; 82550; 82553; 82607; 82746; 82962; 83036; 83605; 83735; 84100; 84439; 84443; 84481; 84484; 85014; 85018; 87077; 87186; 88305; 88312; 88313; 93005; 93306; 93970; 96360; 96361; 97110; 97116; 97162; 97164; 97166; 97530; 97535; 99152; 99285; A6261; C1725; C1769; C1893; G0482; J0360; J0690; J0713; J1200; J1650; J1953; J1956; J2060; J2250; J2765; J3010; J3475; J3490; J7030; J7040; J7042; J7050; J7060; Q9963; A4315; G0500

== ENCOUNTER 2019-07-12 09:08 | Inpatient (IN) | payer SELFPAY ==
[~2019-07-12] VITALS: Ht 175.3 cm; Wt 100.2 kg
[~2019-07-12 09:08] MED LIST: ALBU2.5V13 NEB; ASPI-1497 PO; ATOR-2 PO; CLOP75TA33 PO; DONE23TA3 PO; FAMO20TA8 PO; LEVE250T2 PO; LOSA25TA26 PO; METO25TA6 PO; TAMS0.4C31 PO; TIOT18CA3 PO
[2019-07-12 10:02] LABS: EOSINOPHILS % 0.4 % (0.0-5.0); HEMATOCRIT. 51.4 % (42.0-52.0); HEMOGLOBIN. 17.1 g/dL (14.0-18.0); LYMPHOCYTES % 14.2 % (20.0-50.0); MEAN CORPUSCULAR HEMOGLOBIN 30.2 pg (28.0-32.0); NEUTROPHILS % 80.4 % (40.0-76.0); RED BLOOD CELL COUNT 5.65 mill/uL (4.7-6.1); RED CELL DISTRIBUTION WIDTH 14.3 % (11.6-14.6)
[2019-07-12] MEDS ORDERED: SODIUM CHLORIDE 0.9% 1,000 ML IV ONE (10:03)
[2019-07-12 10:11] LABS: CHLORIDE 104 mEq/L (98-107)
[2019-07-12 10:16] LABS: ETHANOL BLOOD < 10 mg/dL
[2019-07-12 11:01] LABS: PLATELET 224 x1000/uL (130-400)
[2019-07-12 11:40] LABS: CLARITY URINE CLEAR (CLEAR); COLOR URINE YELLOW (YELLOW); KETONES URINE NEGATIVE (NEGATIVE); LEUKOCYTE ESTERASE URINE NEGATIVE (NEGATIVE); NITRITE URINE NEGATIVE (NEGATIVE); OCCULT BLOOD URINE 2+ (NEGATIVE); PH URINE 7.5 (4.5-8.0); PROTEIN URINE 3+ (NEGATIVE); UROBILINOGEN URINE 0.2 E.U./dL (0.2-1.0)
[2019-07-12 12:00] LABS: *BARBITURATES SCREEN URINE NEGATIVE (NEGATIVE); *BENZODIAZEPINES SCREEN URINE NEGATIVE (NEGATIVE); *COCAINE SCREEN URINE NEGATIVE (NEGATIVE)
[2019-07-12 12:01] LABS: *AMPHETAMINES SCREEN URINE NEGATIVE (NEGATIVE); CANNABINOID URINE SCREEN NEGATIVE (NEGATIVE); METHADONE URINE SCREEN NEGATIVE (NEGATIVE); OPIATES URINE SCREEN NEGATIVE (NEGATIVE)
[2019-07-12 12:03] LABS: PHENCYCLIDINE URINE SCREEN NEGATIVE (NEGATIVE)
[2019-07-12] MEDS ORDERED: HYDRALAZINE 20MG/ML VIAL IV ONE (12:15)
[2019-07-12] MEDS ORDERED: LEVETIRACETAM 1000MG/100ML 100 ML IV ONE (12:15)
[2019-07-12] MEDS ORDERED: ONDANSETRON HCL 4MG/2ML INJ IV PRN ×2 (15:45→19:15)
[2019-07-12] MEDS ORDERED: LEVETIRACETAM 500MG PREMIX 100 ML IV ONE (15:45)
[2019-07-12] MEDS ORDERED: MORPHINE SULFATE 2 MG/ML CPJ (NOT FOR IM USE) IV PRN (15:45)
[2019-07-12] MEDS ORDERED: ACETAMINOPHEN 650MG/20.3ML UDC GT PRN (15:45)
[2019-07-12] MEDS: DEXT 5%/0.45% NACL 1000ML 1,000 ML IV SCH (15:45)
[2019-07-12] MEDS ORDERED: LORAZEPAM 2MG/ML CPJ IV PRN ×3 (15:45→19:15)
[2019-07-12] MEDS ORDERED: LEVETIRACETAM 500 MG in SODIUM CHLORIDE 0.9% 100 ML IV SCH (19:15)
[2019-07-12] MEDS ORDERED: ACETAMINOPHEN 325MG TABLET PO PRN (19:15)
[2019-07-12] MEDS ORDERED: DONEPEZIL HCL 5MG TABLET PO SCH (19:15)
[2019-07-12] MEDS ORDERED: IPRATROPIUM/ALBUTEROL 0.5-3(2.5)MG/3ML NEB HHN PRN (19:15)
[2019-07-12] MEDS ORDERED: HYDROCODONE/ACETAMINOPHEN 5/325MG TABLET PO PRN (19:15)
[2019-07-12] MEDS ORDERED: CLONIDINE 0.1MG TABLET PO PRN ×2 (19:15→22:15)
[2019-07-12] MEDS ORDERED: ENOXAPARIN 40MG/0.4ML SYR SUBCUT SCH (20:00)
[2019-07-12] MEDS ORDERED: ATORVASTATIN CALCIUM 40MG TABLET PO SCH (21:00)
[2019-07-12 22:00] VITALS: BP 169/84
[2019-07-12] MEDS: ACETAMINOPHEN 650MG SUPP PR PRN (22:45)
[2019-07-12] MEDS: LEVETIRACETAM 500MG PREMIX 100 ML IV SCH (22:57)
[2019-07-12 23:27] LABS: BG CARBOXYHEMOGLOBIN 0.3 % (0.5-1.5); BG DEOXYHEMOGLOBIN 0.3 % (0.0-5.0); BG FRACTION INSPIRED OXYGEN 100; BG HCO3 ACT 27.4 mmol/L (22.0-26.0); BG METHEMOGLOBIN 0.7 % (0.0-1.5); BG OXYGEN SATURATION 99.7 % (92.0-98.5); BG OXYHEMOGLOBIN 98.7 % (94.0-97.0); BG PCO2 55.2 mmHg (35.0-45.0); BG PH 7.314 (7.350-7.450); BG PO2 315.9 mmHg (75.0-100.0); BG SAMPLE SITE RIGHT RADIAL; BG TOTAL HEMOGLOBIN 16.1 g/dL (12.0-18.0); BG VENT MODE MASK - NRB
[2019-07-13] VITALS: BP 144/67
[2019-07-13 04:44] VITALS: BP 152/82
[2019-07-13 07:02] LABS: HEMATOCRIT. 44.1 % (42.0-52.0); MEAN CORPUSCULAR HEMOGLOBIN 31.1 pg (28.0-32.0); MEAN CORPUSCULAR VOLUME 91.2 fL (80.0-94.0); MEAN PLATELET VOLUME 7.4 fl (7.4-10.4); PLATELET 159 x1000/uL (130-400); RED BLOOD CELL COUNT 4.83 mill/uL (4.7-6.1); RED CELL DISTRIBUTION WIDTH 13.8 % (11.6-14.6)
[2019-07-13 08:00] VITALS: BP 152/73
[2019-07-13 08:16] LABS: CHLORIDE 106 mEq/L (98-107)
[2019-07-13] MEDS ORDERED: LOSARTAN POTASSIUM 25 MG TABLET PO SCH (09:00)
[2019-07-13] MEDS ORDERED: FAMOTIDINE(NEO) 1MG/ML SUSP PO SCH (09:00)
[2019-07-13] MEDS ORDERED: ASPIRIN 81MG TABLET PO SCH (09:00)
[2019-07-13] MEDS ORDERED: LEVETIRACETAM 500MG PREMIX 100 ML IV SCH (09:00)
[2019-07-13] MEDS ORDERED: METOPROLOL TARTRATE 25MG TABLET PO SCH (09:00)
[2019-07-13] MEDS ORDERED: CLOPIDOGREL 75MG TABLET PO SCH (09:00)
[2019-07-13] MEDS ORDERED: TAMSULOSIN HCL 0.4MG SR CAPSULE PO SCH (09:00)
[2019-07-13] MEDS ORDERED: ASPIRIN 81MG EC TABLET PO SCH (09:00)
[2019-07-13] MEDS: LEVETIRACETAM 500MG PREMIX 100 ML IV SCH ×2 (09:08→22:30)
[2019-07-13] MEDS: ENOXAPARIN 30MG/0.3ML SYR SUBCUT SCH ×2 (09:09→22:29)
[2019-07-13] MEDS: CLOPIDOGREL 75MG TABLET PO SCH (11:00)
[2019-07-13] MEDS: METOPROLOL TARTRATE 25MG TABLET PO SCH ×3 (11:00→22:28)
[2019-07-13] MEDS: TAMSULOSIN HCL 0.4MG SR CAPSULE PO SCH (11:00)
[2019-07-13] MEDS: DONEPEZIL HCL 10MG TABLET PO SCH (11:01)
[2019-07-13] MEDS: DEXT 5%/0.45% NACL 1000ML 1,000 ML IV SCH ×2 (11:02→22:28)
[2019-07-13 12:00] VITALS: BP 124/60
[2019-07-13 16:00] VITALS: BP 137/98
[2019-07-13] MEDS: IPRATROPIUM/ALBUTEROL 0.5-3(2.5)MG/3ML NEB HHN PRN (16:32)
[2019-07-13 17:37] LABS: PLATELET ESTIMATE NORMAL
[2019-07-13 20:00] VITALS: BP_SYST 154; BP_SYST 170; BP_DIAS 60; BP_DIAS 89
[2019-07-13] MEDS: DILTIAZEM HCL 5MG/ML 5ML VIAL IV PRN (22:48)
[2019-07-14] VITALS: BP 170/86
[2019-07-14 04:00] VITALS: BP 168/87
[2019-07-14] MEDS: DILTIAZEM HCL 5MG/ML 5ML VIAL IV PRN (04:22)
[2019-07-14] MEDS: ACETAMINOPHEN 650MG SUPP PR PRN (05:17)
[2019-07-14 08:00] VITALS: BP 167/93
[2019-07-14] MEDS: LEVETIRACETAM 500MG PREMIX 100 ML IV SCH ×2 (09:27→20:44)
[2019-07-14] MEDS ORDERED: ASPIRIN 81MG TABLET PO SCH (11:00)
[2019-07-14] MEDS ORDERED: LORAZEPAM 2MG/ML CPJ IV NR (11:15)
[2019-07-14 11:21] VITALS: BP 183/73
[2019-07-14] MEDS: CLOPIDOGREL 75MG TABLET PO SCH (13:34)
[2019-07-14] MEDS: DONEPEZIL HCL 10MG TABLET PO SCH (13:34)
[2019-07-14] MEDS: METOPROLOL TARTRATE 25MG TABLET PO SCH ×2 (13:35→20:43)
[2019-07-14] MEDS: LEVOFLOXACIN 500MG PREMIX 100 ML IV SCH (13:36)
[2019-07-14] MEDS: ENOXAPARIN 30MG/0.3ML SYR SUBCUT SCH ×2 (13:36→20:43)
[2019-07-14 16:00] VITALS: BP_SYST 142; BP_SYST 94; BP_DIAS 48; BP_DIAS 99
[2019-07-14 20:00] VITALS: BP 201/98
[2019-07-14] MEDS: HYDRALAZINE 20MG/ML VIAL IV PRN (20:54)
[2019-07-14] MEDS: DEXT 5%/0.45% NACL 1000ML 1,000 ML IV SCH (21:05)
[2019-07-15] VITALS: BP 187/99
[2019-07-15 04:00] VITALS: BP 169/77
[2019-07-15] MEDS: HYDRALAZINE 20MG/ML VIAL IV PRN (05:39)
[2019-07-15 07:56] VITALS: BP 138/75
[2019-07-15] MEDS: ASPIRIN 81MG EC TABLET PO SCH (09:43)
[2019-07-15] MEDS: CLOPIDOGREL 75MG TABLET PO SCH (09:43)
[2019-07-15] MEDS: DONEPEZIL HCL 10MG TABLET PO SCH (09:43)
[2019-07-15] MEDS: LEVETIRACETAM 500MG PREMIX 100 ML IV SCH ×2 (09:43→20:16)
[2019-07-15] MEDS: TAMSULOSIN HCL 0.4MG SR CAPSULE PO SCH ×3 (09:43→09:48)
[2019-07-15] MEDS: METOPROLOL TARTRATE 25MG TABLET PO SCH ×2 (09:45→09:46)
[2019-07-15] MEDS: ENOXAPARIN 30MG/0.3ML SYR SUBCUT SCH ×2 (09:51→20:17)
[2019-07-15] MEDS: DEXT 5%/0.45% NACL 1000ML 1,000 ML IV SCH (09:52)
[2019-07-15 12:00] VITALS: BP 162/78
[2019-07-15] MEDS: LEVOFLOXACIN 500MG PREMIX 100 ML IV SCH (14:02)
[2019-07-15 16:00] VITALS: BP 142/76
[2019-07-15 20:00] VITALS: BP 149/103
[2019-07-16] VITALS: BP 200/100
[2019-07-16] MEDS: HYDRALAZINE 20MG/ML VIAL IV PRN ×2 (00:05→21:25)
[2019-07-16] MEDS: DEXT 5%/0.45% NACL 1000ML 1,000 ML IV SCH ×2 (00:06→16:45)
[2019-07-16 08:00] VITALS: BP 150/81
[2019-07-16] MEDS: LEVETIRACETAM 500MG PREMIX 100 ML IV SCH ×2 (10:09→21:23)
[2019-07-16] MEDS: ENOXAPARIN 30MG/0.3ML SYR SUBCUT SCH ×2 (10:14→21:24)
[2019-07-16] MEDS: ASPIRIN 81MG EC TABLET PO SCH (10:15)
[2019-07-16] MEDS: CLOPIDOGREL 75MG TABLET PO SCH (10:15)
[2019-07-16] MEDS: TAMSULOSIN HCL 0.4MG SR CAPSULE PO SCH (10:15)
[2019-07-16] MEDS: METOPROLOL TARTRATE 25MG TABLET PO SCH ×2 (10:15→21:00)
[2019-07-16] MEDS: DONEPEZIL HCL 10MG TABLET PO SCH (10:15)
[2019-07-16 12:00] VITALS: BP 139/78
[2019-07-16] MEDS: LEVOFLOXACIN 500MG PREMIX 100 ML IV SCH (16:45)
[2019-07-17] VITALS: BP 178/95
[2019-07-17] MEDS: IPRATROPIUM/ALBUTEROL 0.5-3(2.5)MG/3ML NEB HHN PRN (01:10)
[2019-07-17 04:00] VITALS: BP 150/90
[2019-07-17] MEDS: DEXT 5%/0.45% NACL 1000ML 1,000 ML IV SCH (05:55)
[2019-07-17 08:00] VITALS: BP 167/66
[2019-07-17] MEDS: CLONIDINE 0.1MG TABLET PO PRN (09:15)
[2019-07-17] MEDS: ASPIRIN 81MG EC TABLET PO SCH (09:15)
[2019-07-17] MEDS: CLOPIDOGREL 75MG TABLET PO SCH (09:15)
[2019-07-17] MEDS: METOPROLOL TARTRATE 25MG TABLET PO SCH ×2 (09:16→21:09)
[2019-07-17] MEDS: DONEPEZIL HCL 10MG TABLET PO SCH (09:16)
[2019-07-17] MEDS: ENOXAPARIN 30MG/0.3ML SYR SUBCUT SCH ×2 (09:17→21:09)
[2019-07-17] MEDS: TAMSULOSIN HCL 0.4MG SR CAPSULE PO SCH (09:20)
[2019-07-17] MEDS: LEVETIRACETAM 500MG PREMIX 100 ML IV SCH ×2 (09:22→21:09)
[2019-07-17 12:00] VITALS: BP 119/59
[2019-07-17] MEDS: LEVOFLOXACIN 500MG PREMIX 100 ML IV SCH (12:16)
[2019-07-17 16:00] VITALS: BP 122/60
[2019-07-17 20:00] VITALS: BP 141/60
[2019-07-18] VITALS: BP 122/65
[2019-07-18 04:00] VITALS: BP 157/64
[2019-07-18] MEDS: DEXT 5%/0.45% NACL 1000ML 1,000 ML IV SCH ×2 (05:12→18:25)
[2019-07-18 08:00] VITALS: BP 158/82
[2019-07-18] MEDS: TAMSULOSIN HCL 0.4MG SR CAPSULE PO SCH (09:31)
[2019-07-18] MEDS: DONEPEZIL HCL 10MG TABLET PO SCH (09:31)
[2019-07-18] MEDS: CLOPIDOGREL 75MG TABLET PO SCH (09:31)
[2019-07-18] MEDS: METOPROLOL TARTRATE 25MG TABLET PO SCH ×2 (09:32→20:53)
[2019-07-18] MEDS: ENOXAPARIN 30MG/0.3ML SYR SUBCUT SCH ×2 (09:32→20:57)
[2019-07-18] MEDS: LEVETIRACETAM 500MG PREMIX 100 ML IV SCH (09:36)
[2019-07-18] MEDS: ASPIRIN 81MG EC TABLET PO SCH (09:36)
[2019-07-18 12:00] VITALS: BP 129/60
[2019-07-18] MEDS: LEVOFLOXACIN 500MG PREMIX 100 ML IV SCH (12:09)
[2019-07-18 16:00] VITALS: BP 130/60
[2019-07-18 20:00] VITALS: BP 90/66
[2019-07-18] MEDS: LEVETIRACETAM 500MG in SODIUM CHLORIDE 0.9% 100ML IV SCH (21:30)
[2019-07-19] VITALS (7 sets, daily range): BP systolic 119–188; BP diastolic 68–96
[2019-07-19] MEDS: DEXT 5%/0.45% NACL 1000ML 1,000 ML IV SCH (07:45)
[2019-07-19] MEDS: ASPIRIN 81MG EC TABLET PO SCH (09:00)
[2019-07-19] MEDS: LEVETIRACETAM 500MG in SODIUM CHLORIDE 0.9% 100ML IV SCH (09:57)
[2019-07-19] MEDS: DONEPEZIL HCL 10MG TABLET PO SCH (09:58)
[2019-07-19] MEDS: ENOXAPARIN 30MG/0.3ML SYR SUBCUT SCH ×2 (09:58→21:17)
[2019-07-19] MEDS: CLOPIDOGREL 75MG TABLET PO SCH (09:58)
[2019-07-19] MEDS: TAMSULOSIN HCL 0.4MG SR CAPSULE PO SCH (09:58)
[2019-07-19] MEDS: METOPROLOL TARTRATE 25MG TABLET PO SCH ×2 (09:58→21:16)
[2019-07-19] MEDS: LEVOFLOXACIN 500MG PREMIX 100 ML IV SCH (11:35)
[2019-07-19] MEDS: LEVETIRACETAM 500MG PREMIX 100 ML IV SCH (21:17)
[2019-07-20] VITALS: BP 149/64
[2019-07-20 04:00] VITALS: BP 155/76
[2019-07-20 08:00] VITALS: BP 153/69
[2019-07-20] MEDS: LEVETIRACETAM 500MG PREMIX 100 ML IV SCH ×2 (09:49→20:37)
[2019-07-20] MEDS: DONEPEZIL HCL 10MG TABLET PO SCH (09:50)
[2019-07-20] MEDS: METOPROLOL TARTRATE 25MG TABLET PO SCH ×2 (09:50→20:37)
[2019-07-20] MEDS: CLOPIDOGREL 75MG TABLET PO SCH (09:50)
[2019-07-20] MEDS: TAMSULOSIN HCL 0.4MG SR CAPSULE PO SCH (09:50)
[2019-07-20] MEDS: ENOXAPARIN 30MG/0.3ML SYR SUBCUT SCH ×2 (09:51→20:38)
[2019-07-20] MEDS: ASPIRIN 81MG EC TABLET PO SCH (09:51)
[2019-07-20 12:00] VITALS: BP 130/57
[2019-07-20] MEDS: LEVOFLOXACIN 500MG PREMIX 100 ML IV SCH (15:13)
[2019-07-20 16:38] VITALS: BP 133/66
[2019-07-21 00:48] VITALS: BP 148/76
[2019-07-21 04:00] VITALS: BP 161/68
[2019-07-21 08:00] VITALS: BP 167/85
[2019-07-21] MEDS: LEVETIRACETAM 500MG PREMIX 100 ML IV SCH ×2 (08:55→20:53)
[2019-07-21] MEDS: ASPIRIN 81MG EC TABLET PO SCH (08:55)
[2019-07-21] MEDS: CLOPIDOGREL 75MG TABLET PO SCH (08:55)
[2019-07-21] MEDS: ENOXAPARIN 30MG/0.3ML SYR SUBCUT SCH ×2 (08:55→20:53)
[2019-07-21] MEDS: DONEPEZIL HCL 10MG TABLET PO SCH (08:56)
[2019-07-21] MEDS: CLONIDINE 0.1MG TABLET PO PRN (08:58)
[2019-07-21] MEDS: METOPROLOL TARTRATE 25MG TABLET PO SCH ×2 (08:58→20:53)
[2019-07-21] MEDS: TAMSULOSIN HCL 0.4MG SR CAPSULE PO SCH (09:00)
[2019-07-21 12:00] VITALS: BP 127/55
[2019-07-21] MEDS: LEVOFLOXACIN 500MG PREMIX 100 ML IV SCH (12:25)
[2019-07-21 16:00] VITALS: BP 135/66
[2019-07-21 20:00] VITALS: BP 185/71
[2019-07-22 06:45] LABS: CHLORIDE 104 mEq/L (98-107)
[2019-07-22 06:56] LABS: BASOPHILS % 0.7 % (0.0-2.0); EOSINOPHILS % 5.9 % (0.0-5.0); HEMATOCRIT. 38.1 % (42.0-52.0); HEMOGLOBIN. 12.8 g/dL (14.0-18.0); LYMPHOCYTES % 24.7 % (20.0-50.0); MEAN CORPUSCULAR HEMOGLOBIN 30.2 pg (28.0-32.0); MEAN CORPUSCULAR VOLUME 89.6 fL (80.0-94.0); MONOCYTES % 13.3 % (2.0-8.0); NEUTROPHILS % 55.4 % (40.0-76.0); PLATELET 212 x1000/uL (130-400); RED BLOOD CELL COUNT 4.25 mill/uL (4.7-6.1); RED CELL DISTRIBUTION WIDTH 13.5 % (11.6-14.6)
[2019-07-22 08:00] VITALS: BP 158/77
[2019-07-22] MEDS: TAMSULOSIN HCL 0.4MG SR CAPSULE PO SCH (08:55)
[2019-07-22] MEDS: METOPROLOL TARTRATE 25MG TABLET PO SCH ×2 (08:55→21:23)
[2019-07-22] MEDS: CLOPIDOGREL 75MG TABLET PO SCH (08:55)
[2019-07-22] MEDS: DONEPEZIL HCL 10MG TABLET PO SCH (08:55)
[2019-07-22] MEDS: ASPIRIN 81MG EC TABLET PO SCH (08:55)
[2019-07-22] MEDS: LEVETIRACETAM 500MG PREMIX 100 ML IV SCH (08:56)
[2019-07-22] MEDS: ENOXAPARIN 30MG/0.3ML SYR SUBCUT SCH ×2 (08:56→21:23)
[2019-07-22 12:00] VITALS: BP 138/69
[2019-07-22 16:00] VITALS: BP 128/79
[2019-07-22 17:55] VITALS: BP_SYST 128; BP_SYST 158; BP_DIAS 79; BP_DIAS 82
[2019-07-22 20:00] VITALS: BP 180/90
[2019-07-22] MEDS: CLONIDINE 0.1MG TABLET PO PRN (22:29)
[2019-07-23] VITALS: BP 160/54
[2019-07-23] MEDS: LEVETIRACETAM 500MG PREMIX 100 ML IV SCH ×2 (00:07→09:31)
[2019-07-23] MEDS: ENOXAPARIN 30MG/0.3ML SYR SUBCUT SCH ×2 (00:07→09:30)
[2019-07-23 04:00] VITALS: BP 150/61
[2019-07-23 08:00] VITALS: BP 160/63
[2019-07-23] MEDS: TAMSULOSIN HCL 0.4MG SR CAPSULE PO SCH (09:31)
[2019-07-23] MEDS: METOPROLOL TARTRATE 25MG TABLET PO SCH (09:31)
[2019-07-23] MEDS: DONEPEZIL HCL 10MG TABLET PO SCH (09:31)
[2019-07-23] MEDS: CLOPIDOGREL 75MG TABLET PO SCH (09:31)
[2019-07-23] MEDS: ASPIRIN 81MG EC TABLET PO SCH (09:53)
[2019-07-23] MEDS ORDERED: AMLODIPINE 10MG TABLET PO SCH (10:15)
[2019-07-23] MEDS ORDERED: HYDR-4134 MT (10:20)
[2019-07-23] MEDS ORDERED: AMLO10TA4 MT (10:20)
[2019-07-23 11:44] VITALS: BP 148/64
[2019-07-23 12:00] VITALS: BP_SYST 148; BP_DIAS 63; BP_DIAS 64
[2019-07-23] MEDS ORDERED: HYDRALAZINE HCL 25MG TABLET PO SCH (14:00)
[2019-07-23 16:00] VITALS: BP 128/92
== END 2019-07-23 20:10 | disposition home or self-care (01) | DRG 53 ==
LOC: ER 09:08 → 7WST 13:51 → ENRESERV 19:33
PROVIDERS: ADMIT Hospitalist; ATTEND Hospitalist
PROC: 4A00X4Z Measurement of Central Nervous Electrical Activity, External Approach (ICD-10-PCS; principal; 2019-07-15)
DX: G40.919 Epilepsy, unspecified, intractable, without status epilepticus (principal); E66.01 Morbid (severe) obesity due to excess calories; F03.90 Unspecified dementia, unspecified severity, without behavioral disturbance, psychotic disturbance, mood disturbance, and anxiety; Z78.1 Physical restraint status; E78.00 Pure hypercholesterolemia, unspecified; I10 Essential (primary) hypertension; N40.1 Benign prostatic hyperplasia with lower urinary tract symptoms; N39.498 Other specified urinary incontinence; Z68.32 Body mass index [BMI] 32.0-32.9, adult; Z79.899 Other long term (current) drug therapy; Z86.73 Personal history of transient ischemic attack (TIA), and cerebral infarction without residual deficits; Z79.82 Long term (current) use of aspirin
CPT/HCPCS: 36415; 36600; 70551; 71045; 80048; 80053; 80305; 80320; 81003; 82375; 82805; 82962; 83036; 85025; 92610; 93005; 93970; 94640; 96361; 96365; 96367; 97162; 99285; C1893; J0360; J1650; J1953; J1956; J2060; J3490; J7030; J7050; J7620; G0480

== ENCOUNTER 2019-10-21 08:18 | Inpatient (IN) | payer SELFPAY ==
[~2019-10-21] VITALS: Ht 167.6 cm; Wt 90.7 kg
[~2019-10-21 08:18] MED LIST changes: +AMLO10TA4 MT; +HYDR-4134 MT
[2019-10-21] MEDS ORDERED: ACETAMINOPHEN 650MG SUPP PR STA (08:25)
[2019-10-21 09:30] LABS: CLARITY URINE CLEAR (CLEAR); COLOR URINE YELLOW (YELLOW); KETONES URINE TRACE (NEGATIVE); LEUKOCYTE ESTERASE URINE NEGATIVE (NEGATIVE); NITRITE URINE NEGATIVE (NEGATIVE); OCCULT BLOOD URINE 1+ (NEGATIVE); PROTEIN URINE 2+ (NEGATIVE); UROBILINOGEN URINE 0.2 E.U./dL (0.2-1.0)
[2019-10-21 09:36] LABS: BASOPHILS % 0.8 % (0.0-2.0); HEMATOCRIT. 45.4 % (42.0-52.0); HEMOGLOBIN. 15.7 g/dL (14.0-18.0); LYMPHOCYTES % 16.6 % (20.0-50.0); MEAN CORPUSCULAR HEMOGLOBIN 30.1 pg (28.0-32.0); MEAN CORPUSCULAR VOLUME 87.3 fL (80.0-94.0); MEAN PLATELET VOLUME 7.6 fl (7.4-10.4); MONOCYTES % 9.5 % (2.0-8.0); NEUTROPHILS % 73.1 % (40.0-76.0); PLATELET 231 x1000/uL (130-400); RED CELL DISTRIBUTION WIDTH 14.3 % (11.6-14.6)
[2019-10-21 09:43] LABS: CHLORIDE 102 mEq/L (98-107)
[2019-10-21 09:44] LABS: PROTHROMBIN TIME 10.9 sec (9.6-11.0)
[2019-10-21] MEDS ORDERED: SODIUM CHLORIDE 0.9% 1,000 ML IV ONE (10:06)
[2019-10-21] MEDS ORDERED: LEVETIRACETAM 500MG PREMIX 100 ML IV ONE (10:15)
[2019-10-21] MEDS ORDERED: ASPIRIN 81MG TABLET PO ONE (10:15)
[2019-10-21] MEDS ORDERED: PIPERACILLIN/TAZ 3.375G PREMIX 50 ML IV ONE (10:15)
[2019-10-21] MEDS ORDERED: VANCOMYCIN 1 G PREMIX 200 ML IV ONE (10:15)
[2019-10-21] MEDS ORDERED: ASPIRIN 300MG SUPP PR ONE (10:30)
[2019-10-21] MEDS ORDERED: ASPIRIN 300MG SUPP PR SCH (10:45)
[2019-10-21] MEDS ORDERED: HYDRALAZINE 20MG/ML VIAL IV ONE (11:15)
[2019-10-21] MEDS ORDERED: ALBUTEROL (0.083%) 2.5MG/3ML NEB HHN ONE (11:15)
[2019-10-21 12:00] VITALS: BP 165/95
[2019-10-21] MEDS ORDERED: ALBUTEROL 6.7GM HFA INHALER ORI ONE (12:00)
[2019-10-21] MEDS ORDERED: DEXT 5%/0.45% NACL 1000ML 1,000 ML IV SCH ×2 (13:05→22:00)
[2019-10-21] MEDS ORDERED: ONDANSETRON HCL 4MG/2ML INJ IV PRN (13:15)
[2019-10-21] MEDS ORDERED: LEVETIRACETAM 500 MG in SODIUM CHLORIDE 0.9% 100 ML IV SCH (13:15)
[2019-10-21] MEDS ORDERED: ACETAMINOPHEN 650MG SUPP PR PRN ×2 (13:15)
[2019-10-21] MEDS ORDERED: LEVOFLOXACIN 500MG PREMIX 100 ML IV NR ×2 (14:00→18:45)
[2019-10-21] MEDS: ENOXAPARIN 40MG/0.4ML SYR SUBCUT SCH (14:54)
[2019-10-21 16:18] VITALS: BP 160/90
[2019-10-21] MEDS ORDERED: LEVETIRACETAM 250 MG in SODIUM CHLORIDE 0.9% 100 ML IV SCH (20:45)
[2019-10-21 21:00] VITALS: BP 155/92
[2019-10-21] MEDS ORDERED: LEVETIRACETAM 500MG PREMIX 100 ML IV SCH (21:00)
[2019-10-22 00:10] VITALS: BP 150/89
[2019-10-22 04:13] VITALS: BP 177/95
[2019-10-22] MEDS: HYDRALAZINE 20MG/ML VIAL IV PRN (04:31)
[2019-10-22 08:00] VITALS: BP 127/77
[2019-10-22] MEDS ORDERED: ALBUTEROL 6.7GM HFA INHALER ORI PRN (08:00)
[2019-10-22] MEDS: TAMSULOSIN HCL 0.4MG SR CAPSULE PO SCH (08:42)
[2019-10-22] MEDS: ENOXAPARIN 40MG/0.4ML SYR SUBCUT SCH (08:42)
[2019-10-22] MEDS: LEVETIRACETAM 250 MG in SODIUM CHLORIDE 0.9% 100 ML IV SCH ×2 (11:05→22:12)
[2019-10-22 12:00] VITALS: BP 118/70
[2019-10-22] MEDS: VANCOMYCIN 1 G PREMIX 200 ML IV SCH (12:29)
[2019-10-22 16:00] VITALS: BP 151/71
[2019-10-22] MEDS: LEVOFLOXACIN 250MG PREMIX 50 ML IV SCH (18:16)
[2019-10-22 20:00] VITALS: BP 137/71
[2019-10-23] VITALS: BP 131/51
[2019-10-23 04:00] VITALS: BP 141/75
[2019-10-23] MEDS: VANCOMYCIN 1 G PREMIX 200 ML IV SCH (05:10)
[2019-10-23 08:00] VITALS: BP 138/81
[2019-10-23] MEDS: LEVETIRACETAM 250 MG in SODIUM CHLORIDE 0.9% 100 ML IV SCH (08:38)
[2019-10-23] MEDS: TAMSULOSIN HCL 0.4MG SR CAPSULE PO SCH (08:38)
[2019-10-23] MEDS: ENOXAPARIN 40MG/0.4ML SYR SUBCUT SCH (08:39)
[2019-10-23 12:00] VITALS: BP 146/72
[2019-10-23 16:00] VITALS: BP 161/73
[2019-10-23] MEDS: LEVOFLOXACIN 250MG PREMIX 50 ML IV SCH (18:08)
[2019-10-23 20:00] VITALS: BP 155/74
[2019-10-24] VITALS: BP 112/76
[2019-10-24] MEDS: LEVETIRACETAM 250 MG in SODIUM CHLORIDE 0.9% 100 ML IV SCH ×2 (00:57→09:15)
[2019-10-24 04:00] VITALS: BP 110/78
[2019-10-24 08:00] VITALS: BP 154/80
[2019-10-24 09:08] LABS: CHLORIDE 104 mEq/L (98-107)
[2019-10-24] MEDS: ENOXAPARIN 40MG/0.4ML SYR SUBCUT SCH (09:14)
[2019-10-24] MEDS: TAMSULOSIN HCL 0.4MG SR CAPSULE PO SCH (09:15)
[2019-10-24 12:00] VITALS: BP 183/110
[2019-10-24] MEDS ORDERED: VANCOMYCIN 1250MG in DEXTROSE 5% WATER 250ML IV SCH (12:00)
[2019-10-24] MEDS: VANCOMYCIN 1 G PREMIX 200 ML IV SCH ×3 (13:43→20:15)
[2019-10-24 16:00] VITALS: BP 161/73
[2019-10-24] MEDS: AMPICILLIN 2,000 MG in SODIUM CHLORIDE 0.9% 100 ML IV SCH ×2 (17:29→23:40)
[2019-10-24 20:00] VITALS: BP 174/93
[2019-10-24] MEDS ORDERED: CEFTRIAXONE 2 G PREMIX 50 ML IV SCH (21:00)
[2019-10-24] MEDS: LEVETIRACETAM 500MG/5ML CUP PO SCH (21:07)
[2019-10-24] MEDS: CEFTRIAXONE 2 G in DEXTROSE 5% WATER 50 ML IV SCH (21:07)
[2019-10-24] MEDS: HYDRALAZINE 20MG/ML VIAL IV PRN (21:27)
[2019-10-25] VITALS: BP 185/94
[2019-10-25 04:00] VITALS: BP 170/106
[2019-10-25] MEDS: VANCOMYCIN 1 G PREMIX 200 ML IV SCH ×3 (04:03→20:34)
[2019-10-25] MEDS: AMPICILLIN 2,000 MG in SODIUM CHLORIDE 0.9% 100 ML IV SCH ×2 (05:04→14:06)
[2019-10-25] MEDS: HYDRALAZINE 20MG/ML VIAL IV PRN (05:28)
[2019-10-25 08:00] VITALS: BP 154/74
[2019-10-25] MEDS: TAMSULOSIN HCL 0.4MG SR CAPSULE PO SCH (08:46)
[2019-10-25] MEDS: LEVETIRACETAM 500MG/5ML CUP PO SCH ×2 (08:47→20:34)
[2019-10-25] MEDS: CEFTRIAXONE 2 G in DEXTROSE 5% WATER 50 ML IV SCH (08:47)
[2019-10-25] MEDS: ENOXAPARIN 40MG/0.4ML SYR SUBCUT SCH (08:48)
[2019-10-25] MEDS: AMLODIPINE 10MG TABLET PO SCH (09:34)
[2019-10-25 12:00] VITALS: BP 131/66
[2019-10-25] MEDS: HYDRALAZINE HCL 25MG TABLET PO SCH ×2 (15:10→21:28)
[2019-10-25 16:00] VITALS: BP 127/55
[2019-10-25] MEDS ORDERED: IPRATROPIUM/ALBUTEROL 0.5-3(2.5)MG/3ML NEB HHN PRN (17:45)
[2019-10-25 20:00] VITALS: BP 163/88
[2019-10-26] VITALS (7 sets, daily range): BP systolic 124–148; BP diastolic 65–78
[2019-10-26 01:22] LABS: CHLORIDE 102 mEq/L (98-107)
[2019-10-26 01:31] LABS: VANCOMYCIN TROUGH 24.3 ug/mL (5.0-10.0)
[2019-10-26] MEDS: VANCOMYCIN 1 G PREMIX 200 ML IV SCH ×4 (04:00→21:24)
[2019-10-26] MEDS: HYDRALAZINE HCL 25MG TABLET PO SCH ×3 (05:03→21:24)
[2019-10-26] MEDS: LEVETIRACETAM 500MG/5ML CUP PO SCH ×2 (09:00→21:31)
[2019-10-26] MEDS: TAMSULOSIN HCL 0.4MG SR CAPSULE PO SCH (10:09)
[2019-10-26] MEDS: AMLODIPINE 10MG TABLET PO SCH (10:09)
[2019-10-26] MEDS: ENOXAPARIN 40MG/0.4ML SYR SUBCUT SCH (10:10)
[2019-10-27] VITALS: BP 155/64
[2019-10-27 04:00] VITALS: BP 172/88
[2019-10-27] MEDS: HYDRALAZINE HCL 25MG TABLET PO SCH ×3 (05:24→21:00)
[2019-10-27] MEDS: VANCOMYCIN 1 G PREMIX 200 ML IV SCH ×2 (05:24→13:18)
[2019-10-27] MEDS: LEVETIRACETAM 500MG/5ML CUP PO SCH ×2 (09:19→21:00)
[2019-10-27] MEDS: TAMSULOSIN HCL 0.4MG SR CAPSULE PO SCH (09:20)
[2019-10-27] MEDS: AMLODIPINE 10MG TABLET PO SCH (09:20)
[2019-10-27] MEDS: ENOXAPARIN 40MG/0.4ML SYR SUBCUT SCH (09:20)
[2019-10-27 12:00] VITALS: BP 155/98
[2019-10-27] MEDS ORDERED: HYDRALAZINE 10 MG in SODIUM CHLORIDE 0.9% 49.5 ML IV PRN (15:30)
[2019-10-27 16:00] VITALS: BP 157/79
[2019-10-27 20:00] VITALS: BP 160/65
[2019-10-28] VITALS: BP 182/82
[2019-10-28 04:00] VITALS: BP 138/75
[2019-10-28] MEDS: HYDRALAZINE HCL 25MG TABLET PO SCH ×3 (05:08→23:00)
[2019-10-28 06:16] LABS: BASOPHILS % 0.5 % (0.0-2.0); EOSINOPHILS % 2.3 % (0.0-5.0); HEMATOCRIT. 43.4 % (42.0-52.0); HEMOGLOBIN. 14.8 g/dL (14.0-18.0); LYMPHOCYTES % 18.6 % (20.0-50.0); MEAN CORPUSCULAR HEMOGLOBIN 29.9 pg (28.0-32.0); MEAN CORPUSCULAR VOLUME 87.8 fL (80.0-94.0); MEAN PLATELET VOLUME 7.8 fl (7.4-10.4); MONOCYTES % 12.7 % (2.0-8.0); NEUTROPHILS % 65.9 % (40.0-76.0); PLATELET 195 x1000/uL (130-400); RED BLOOD CELL COUNT 4.95 mill/uL (4.7-6.1); RED CELL DISTRIBUTION WIDTH 14.2 % (11.6-14.6)
[2019-10-28 07:36] LABS: CHLORIDE 104 mEq/L (98-107)
[2019-10-28 08:00] VITALS: BP 148/76
[2019-10-28] MEDS: LEVETIRACETAM 500MG/5ML CUP PO SCH ×2 (08:59→21:00)
[2019-10-28] MEDS: AMLODIPINE 10MG TABLET PO SCH (08:59)
[2019-10-28] MEDS: TAMSULOSIN HCL 0.4MG SR CAPSULE PO SCH (08:59)
[2019-10-28] MEDS: ENOXAPARIN 40MG/0.4ML SYR SUBCUT SCH (08:59)
[2019-10-28] MEDS ORDERED: POTASSIUM CHLORIDE 20MEQ TABLET SR PO SCH (09:00)
[2019-10-28] MEDS ORDERED: LIDOCAINE HCL 1% 20ML VIAL (Pyxis) INJ ONE (10:45)
[2019-10-28 12:00] VITALS: BP 154/69
[2019-10-28] MEDS ORDERED: VANCOMYCIN 1 G PREMIX 200 ML IV SCH (13:30)
[2019-10-28 16:00] VITALS: BP 158/77
[2019-10-28 20:00] VITALS: BP 124/76
[2019-10-28] MEDS: VANCOMYCIN 1 G PREMIX 200 ML IV SCH (23:00)
[2019-10-29] VITALS: BP 131/80
[2019-10-29 04:00] VITALS: BP 131/80
[2019-10-29] MEDS: HYDRALAZINE HCL 25MG TABLET PO SCH ×3 (06:12→21:05)
[2019-10-29] MEDS: VANCOMYCIN 1 G PREMIX 200 ML IV SCH ×2 (06:12→21:10)
[2019-10-29 07:48] LABS: CHLORIDE 105 mEq/L (98-107)
[2019-10-29 08:00] VITALS: BP 149/66
[2019-10-29] MEDS ORDERED: LIDOCAINE HCL 1% 20ML VIAL (Pyxis) INJ ONE (08:51)
[2019-10-29] MEDS ORDERED: SODIUM BICARBONATE 4% (2.4MEQ) 5ML VIAL IV ONE (08:51)
[2019-10-29] MEDS: LEVETIRACETAM 500MG/5ML CUP PO SCH ×2 (09:24→21:04)
[2019-10-29] MEDS: AMLODIPINE 10MG TABLET PO SCH (09:24)
[2019-10-29] MEDS: TAMSULOSIN HCL 0.4MG SR CAPSULE PO SCH (09:24)
[2019-10-29] MEDS: ENOXAPARIN 40MG/0.4ML SYR SUBCUT SCH (09:25)
[2019-10-29] MEDS ORDERED: VANCOMYCIN 1500MG in DEXTROSE 5% WATER 250ML IV SCH (12:00)
[2019-10-29 16:00] VITALS: BP 142/58
[2019-10-29 20:00] VITALS: BP 117/54
[2019-10-30] VITALS: BP 157/74
[2019-10-30 04:00] VITALS: BP 175/77
[2019-10-30] MEDS: HYDRALAZINE HCL 25MG TABLET PO SCH ×3 (05:35→21:18)
[2019-10-30] MEDS: VANCOMYCIN 1 G PREMIX 200 ML IV SCH ×3 (05:41→21:18)
[2019-10-30 08:00] VITALS: BP 139/73
[2019-10-30] MEDS: ENOXAPARIN 40MG/0.4ML SYR SUBCUT SCH (08:51)
[2019-10-30] MEDS: TAMSULOSIN HCL 0.4MG SR CAPSULE PO SCH (08:51)
[2019-10-30] MEDS: AMLODIPINE 10MG TABLET PO SCH (08:51)
[2019-10-30] MEDS: LEVETIRACETAM 500MG/5ML CUP PO SCH ×2 (08:54→21:17)
[2019-10-30 12:00] VITALS: BP 139/68
[2019-10-30 16:00] VITALS: BP 149/68
[2019-10-30 20:00] VITALS: BP 174/79
[2019-10-31] VITALS: BP 164/88
[2019-10-31 04:00] VITALS: BP_SYST 147; BP_SYST 153; BP_DIAS 81; BP_DIAS 95
[2019-10-31] MEDS: HYDRALAZINE HCL 25MG TABLET PO SCH ×3 (06:07→22:02)
[2019-10-31] MEDS: VANCOMYCIN 1 G PREMIX 200 ML IV SCH ×3 (06:07→22:03)
[2019-10-31 08:00] VITALS: BP_SYST 153; BP_SYST 157; BP_DIAS 83
[2019-10-31] MEDS: AMLODIPINE 10MG TABLET PO SCH (09:29)
[2019-10-31] MEDS: ENOXAPARIN 40MG/0.4ML SYR SUBCUT SCH (09:30)
[2019-10-31] MEDS: TAMSULOSIN HCL 0.4MG SR CAPSULE PO SCH (09:31)
[2019-10-31] MEDS: LEVETIRACETAM 500MG/5ML CUP PO SCH ×2 (09:31→22:01)
[2019-10-31 12:00] VITALS: BP 146/67
[2019-10-31 16:00] VITALS: BP 126/69
[2019-10-31 20:00] VITALS: BP 147/63
[2019-11-01] VITALS: BP 145/71
[2019-11-01 04:00] VITALS: BP 148/55
[2019-11-01] MEDS: HYDRALAZINE HCL 25MG TABLET PO SCH ×3 (06:35→21:10)
[2019-11-01] MEDS: VANCOMYCIN 1 G PREMIX 200 ML IV SCH (06:35)
[2019-11-01 06:55] LABS: CHLORIDE 104 mEq/L (98-107)
[2019-11-01 07:10] LABS: VANCOMYCIN TROUGH 32.5 ug/mL (5.0-10.0)
[2019-11-01 08:00] VITALS: BP 122/81
[2019-11-01] MEDS: LEVETIRACETAM 500MG/5ML CUP PO SCH ×2 (09:00→21:10)
[2019-11-01] MEDS: TAMSULOSIN HCL 0.4MG SR CAPSULE PO SCH (09:00)
[2019-11-01] MEDS: AMLODIPINE 10MG TABLET PO SCH (09:00)
[2019-11-01] MEDS: ENOXAPARIN 40MG/0.4ML SYR SUBCUT SCH (09:01)
[2019-11-01 12:00] VITALS: BP 132/64
[2019-11-01 16:00] VITALS: BP 140/65
[2019-11-01 20:00] VITALS: BP 125/61
[2019-11-02] VITALS: BP 130/66
[2019-11-02 04:00] VITALS: BP 120/78
[2019-11-02] MEDS: HYDRALAZINE HCL 25MG TABLET PO SCH ×3 (07:07→22:28)
[2019-11-02 08:00] VITALS: BP 118/51
[2019-11-02] MEDS: TAMSULOSIN HCL 0.4MG SR CAPSULE PO SCH (08:42)
[2019-11-02] MEDS: AMLODIPINE 10MG TABLET PO SCH (08:43)
[2019-11-02] MEDS: ENOXAPARIN 40MG/0.4ML SYR SUBCUT SCH (08:44)
[2019-11-02] MEDS: LEVETIRACETAM 500MG/5ML CUP PO SCH ×2 (08:44→22:29)
[2019-11-02 12:00] VITALS: BP 115/54
[2019-11-02 16:00] VITALS: BP 119/59
[2019-11-02 20:00] VITALS: BP 128/60
[2019-11-03] VITALS: BP 162/64
[2019-11-03 04:00] VITALS: BP 130/64
[2019-11-03] MEDS: HYDRALAZINE HCL 25MG TABLET PO SCH ×3 (06:31→22:03)
[2019-11-03 08:00] VITALS: BP 142/64
[2019-11-03] MEDS: ENOXAPARIN 40MG/0.4ML SYR SUBCUT SCH (09:00)
[2019-11-03] MEDS: TAMSULOSIN HCL 0.4MG SR CAPSULE PO SCH (09:52)
[2019-11-03] MEDS: AMLODIPINE 10MG TABLET PO SCH (09:52)
[2019-11-03] MEDS: LEVETIRACETAM 500MG/5ML CUP PO SCH ×2 (09:53→22:03)
[2019-11-03 12:00] VITALS: BP 139/54
[2019-11-03 16:00] VITALS: BP 121/54
[2019-11-03 16:03] LABS: CHLORIDE 104 mEq/L (98-107)
[2019-11-03] MEDS ORDERED: VANCOMYCIN 1250MG in DEXTROSE 5% WATER 250ML IV SCH (19:00)
[2019-11-03 20:00] VITALS: BP 138/64
[2019-11-04] VITALS: BP 133/62
[2019-11-04 04:00] VITALS: BP 142/66
[2019-11-04] MEDS: HYDRALAZINE HCL 25MG TABLET PO SCH ×2 (06:40→14:48)
[2019-11-04 08:00] VITALS: BP 129/51
[2019-11-04] MEDS: TAMSULOSIN HCL 0.4MG SR CAPSULE PO SCH (08:39)
[2019-11-04] MEDS: LEVETIRACETAM 500MG/5ML CUP PO SCH (08:40)
[2019-11-04] MEDS: AMLODIPINE 10MG TABLET PO SCH (08:40)
[2019-11-04] MEDS: ENOXAPARIN 40MG/0.4ML SYR SUBCUT SCH (08:43)
[2019-11-04 12:00] VITALS: BP 137/62
[2019-11-04 14:57] VITALS: BP 136/66
== END 2019-11-04 13:30 | disposition home or self-care (01) | DRG 720 ==
LOC: ER 08:31 → EDBEDREQ 10:08 → EDBEDREQSVC 10:08 → EDBEDREQTM 10:08 → 7EST 11:17 → ENRESERV 11:25 → EDBEDREQ 11:26 → 6WST 10-23 16:00 → 6EST 10-25 11:22
PROVIDERS: ADMIT Internal Medicine; ATTEND Internal Medicine
PROC: 02HV33Z Insertion of Infusion Device into Superior Vena Cava, Percutaneous Approach (ICD-10-PCS; principal; 2019-10-28)
PROC: B518ZZA Fluoroscopy of Superior Vena Cava, Guidance (ICD-10-PCS; 2019-10-28)
PROC: B548ZZA Ultrasonography of Superior Vena Cava, Guidance (ICD-10-PCS; 2019-10-28)
PROC: 05H533Z Insertion of Infusion Device into Right Subclavian Vein, Percutaneous Approach (ICD-10-PCS; 2019-10-29)
PROC: B548ZZA Ultrasonography of Superior Vena Cava, Guidance (ICD-10-PCS; 2019-10-29)
PROC: B518ZZA Fluoroscopy of Superior Vena Cava, Guidance (ICD-10-PCS; 2019-10-29)
DX: A41.9 Sepsis, unspecified organism (principal); J96.00 Acute respiratory failure, unspecified whether with hypoxia or hypercapnia; G93.41 Metabolic encephalopathy; I50.22 Chronic systolic (congestive) heart failure; I11.0 Hypertensive heart disease with heart failure; G40.909 Epilepsy, unspecified, not intractable, without status epilepticus; E78.00 Pure hypercholesterolemia, unspecified; F03.90 Unspecified dementia, unspecified severity, without behavioral disturbance, psychotic disturbance, mood disturbance, and anxiety; N40.0 Benign prostatic hyperplasia without lower urinary tract symptoms; E66.9 Obesity, unspecified; R29.6 Repeated falls; Z79.899 Other long term (current) drug therapy; Z79.82 Long term (current) use of aspirin; G93.89 Other specified disorders of brain; Z86.73 Personal history of transient ischemic attack (TIA), and cerebral infarction without residual deficits; Z20.828 Contact with and (suspected) exposure to other viral communicable diseases; Z68.32 Body mass index [BMI] 32.0-32.9, adult
CPT/HCPCS: 36415; 36573; 71045; 76937; 80048; 80053; 80202; 81003; 82962; 83605; 83735; 84484; 85025; 87635; 87804; 93005; 93306; 94640; 97116; 97162; 97530; 99291; C1725; C1769; J0290; J0360; J0696; J1650; J1953; J1956; J2543; J3370; J3490; J7030; J7050; J7060; U0003-CS

== ENCOUNTER 2019-11-06 14:27 | Inpatient (IN) | payer SELFPAY ==
[~2019-11-06] VITALS: Ht 172.7 cm; Wt 118.6 kg
[2019-11-06] MEDS ORDERED: SODIUM CHLORIDE 0.9% 1,000 ML IV ONE (14:39)
[2019-11-06] MEDS ORDERED: LEVETIRACETAM 500MG PREMIX 100 ML IV ONE (14:45)
[2019-11-06 15:44] LABS: BASOPHILS % 1.2 % (0.0-2.0); EOSINOPHILS % 3.8 % (0.0-5.0); HEMATOCRIT. 38.1 % (42.0-52.0); HEMOGLOBIN. 12.9 g/dL (14.0-18.0); LYMPHOCYTES % 32.8 % (20.0-50.0); MEAN CORPUSCULAR HEMOGLOBIN 30.1 pg (28.0-32.0); MEAN CORPUSCULAR VOLUME 88.9 fL (80.0-94.0); MONOCYTES % 8.7 % (2.0-8.0); NEUTROPHILS % 53.5 % (40.0-76.0); RED BLOOD CELL COUNT 4.29 mill/uL (4.7-6.1); RED CELL DISTRIBUTION WIDTH 14.6 % (11.6-14.6)
[2019-11-06 15:46] LABS: CHLORIDE 104 mEq/L (98-107)
[2019-11-06 15:49] LABS: PARTIAL THROMBOPLASTIN TIME 21.6 sec (23.4-31.0); PROTHROMBIN TIME 10.7 sec (9.6-11.0)
[2019-11-06 16:31] LABS: MEAN PLATELET VOLUME 7.7 fl (7.4-10.4); PLATELET 281 x1000/uL (130-400)
[2019-11-06 16:32] LABS: PLATELET ESTIMATE NORMAL
[2019-11-06] MEDS ORDERED: LEVOFLOXACIN 750MG PREMIX 150 ML IV ONE (16:45)
[2019-11-06] MEDS ORDERED: SODIUM CHLORIDE 0.9% 1000ML BAG (SEPSIS BOLUS) IV ONE (16:45)
[2019-11-06 17:21] LABS: CLARITY URINE CLEAR (CLEAR); COLOR URINE YELLOW (YELLOW); KETONES URINE NEGATIVE (NEGATIVE); LEUKOCYTE ESTERASE URINE TRACE (NEGATIVE); NITRITE URINE NEGATIVE (NEGATIVE); OCCULT BLOOD URINE NEGATIVE (NEGATIVE); PROTEIN URINE 1+ (NEGATIVE); SPECIFIC GRAVITY URINE 1.017 (1.005-1.030); UROBILINOGEN URINE 0.2 E.U./dL (0.2-1.0)
[2019-11-06] MEDS ORDERED: ASPIRIN 325MG EC TABLET PO ONE (17:30)
[2019-11-06 21:00] VITALS: BP_SYST 109; BP_SYST 111; BP_DIAS 51
[2019-11-06] MEDS ORDERED: LORAZEPAM 2MG/ML CPJ IV PRN (21:30)
[2019-11-06] MEDS ORDERED: DIPHENHYDRAMINE 50MG/ML VIAL IV PRN (21:30)
[2019-11-06] MEDS ORDERED: ONDANSETRON HCL 4MG/2ML INJ IV PRN (21:30)
[2019-11-06] MEDS ORDERED: HYDRALAZINE 20MG/ML VIAL IV PRN (21:30)
[2019-11-06] MEDS ORDERED: MORPHINE SULFATE 2 MG/ML CPJ (NOT FOR IM USE) IV PRN (21:30)
[2019-11-06] MEDS ORDERED: DOCUSATE SODIUM 100MG CAPSULE PO PRN (21:30)
[2019-11-06] MEDS ORDERED: IPRATROPIUM/ALBUTEROL 0.5-3(2.5)MG/3ML NEB HHN PRN (21:30)
[2019-11-06] MEDS ORDERED: HYDROCODONE/ACETAMINOPHEN 10/325MG TABLET PO PRN (21:30)
[2019-11-06] MEDS ORDERED: MAGNESIUM/ALUMINUM HYDROXIDE/SIMETHICONE 30ML UDC PO PRN (21:30)
[2019-11-06] MEDS ORDERED: GUAIFENESIN 200MG/10ML SUGAR FREE UDC PO PRN (21:30)
[2019-11-06] MEDS ORDERED: ACETAMINOPHEN 325MG TABLET PO PRN (21:30)
[2019-11-06] MEDS ORDERED: CLONIDINE 0.1MG TABLET PO PRN (21:30)
[2019-11-07] VITALS: BP 111/56
[2019-11-07] MEDS: ENOXAPARIN 30MG/0.3ML SYR SUBCUT SCH ×3 (00:18→20:51)
[2019-11-07] MEDS: SODIUM CHLORIDE 0.9% INJ 3ML FLUSH IVF SCH ×4 (06:00→22:00)
[2019-11-07 06:25] LABS: CHLORIDE 106 mEq/L (98-107)
[2019-11-07 06:34] LABS: CREATINE KINASE 88 IU/L (39-308); CREATINE KINASE MB FRACTION 2.4 ng/mL (0.5-3.6)
[2019-11-07 06:39] LABS: BASOPHILS % 0.8 % (0.0-2.0); EOSINOPHILS % 3.6 % (0.0-5.0); HEMATOCRIT. 40.3 % (42.0-52.0); HEMOGLOBIN. 13.7 g/dL (14.0-18.0); LYMPHOCYTES % 24.3 % (20.0-50.0); MEAN CORPUSCULAR HEMOGLOBIN 29.9 pg (28.0-32.0); MEAN CORPUSCULAR VOLUME 87.9 fL (80.0-94.0); MEAN PLATELET VOLUME 7.7 fl (7.4-10.4); MONOCYTES % 10.8 % (2.0-8.0); NEUTROPHILS % 60.5 % (40.0-76.0); PLATELET 243 x1000/uL (130-400); RED BLOOD CELL COUNT 4.58 mill/uL (4.7-6.1); RED CELL DISTRIBUTION WIDTH 14.2 % (11.6-14.6)
[2019-11-07 08:00] VITALS: BP 130/54
[2019-11-07] MEDS: LEVETIRACETAM 500MG TABLET PO SCH ×2 (08:58→20:51)
[2019-11-07 12:00] VITALS: BP 149/75
[2019-11-07 15:58] VITALS: BP 155/71
[2019-11-07 16:17] LABS: CREATINE KINASE 90 IU/L (39-308)
[2019-11-07 16:19] LABS: CREATINE KINASE MB FRACTION 2.6 ng/mL (0.5-3.6)
[2019-11-07 20:00] VITALS: BP 157/63
[2019-11-08] VITALS: BP 146/84
[2019-11-08 04:00] VITALS: BP 131/73
[2019-11-08] MEDS: SODIUM CHLORIDE 0.9% INJ 3ML FLUSH IVF SCH ×2 (06:00→13:11)
[2019-11-08 08:00] VITALS: BP 170/90
[2019-11-08] MEDS: ENOXAPARIN 30MG/0.3ML SYR SUBCUT SCH (08:43)
[2019-11-08] MEDS: LEVETIRACETAM 500MG TABLET PO SCH (08:43)
[2019-11-08 10:29] LABS: BASOPHILS % 1.8 % (0.0-2.0); EOSINOPHILS % 4.5 % (0.0-5.0); HEMATOCRIT. 40.7 % (42.0-52.0); HEMOGLOBIN. 13.8 g/dL (14.0-18.0); LYMPHOCYTES % 30.9 % (20.0-50.0); MEAN CORPUSCULAR HEMOGLOBIN 29.8 pg (28.0-32.0); MEAN CORPUSCULAR VOLUME 87.8 fL (80.0-94.0); MEAN PLATELET VOLUME 7.3 fl (7.4-10.4); MONOCYTES % 10.8 % (2.0-8.0); PLATELET 232 x1000/uL (130-400); RED BLOOD CELL COUNT 4.63 mill/uL (4.7-6.1); RED CELL DISTRIBUTION WIDTH 14.6 % (11.6-14.6)
[2019-11-08 10:41] LABS: CHLORIDE 107 mEq/L (98-107)
[2019-11-08 12:00] VITALS: BP 138/57
[2019-11-08 16:00] VITALS: BP 116/69
[2019-11-08 17:24] VITALS: BP 116/69
== END 2019-11-08 20:45 | disposition home or self-care (01) | DRG 422 ==
LOC: ER 14:27 → ENRESERV 19:04 → EDBEDREQ 19:27 → 6WST 21:08
PROVIDERS: ADMIT Internal Medicine; ATTEND Internal Medicine
DX: E86.0 Dehydration (principal); I95.9 Hypotension, unspecified; E87.2 Acidosis; E46 Unspecified protein-calorie malnutrition; I11.0 Hypertensive heart disease with heart failure; I50.9 Heart failure, unspecified; F03.90 Unspecified dementia, unspecified severity, without behavioral disturbance, psychotic disturbance, mood disturbance, and anxiety; G40.909 Epilepsy, unspecified, not intractable, without status epilepticus; I25.10 Atherosclerotic heart disease of native coronary artery without angina pectoris; E78.00 Pure hypercholesterolemia, unspecified; E78.5 Hyperlipidemia, unspecified; Z86.73 Personal history of transient ischemic attack (TIA), and cerebral infarction without residual deficits; Z79.899 Other long term (current) drug therapy; Z79.82 Long term (current) use of aspirin; Z68.39 Body mass index [BMI] 39.0-39.9, adult
CPT/HCPCS: 36415; 71045; 80048; 80053; 81003; 82550; 82553; 83605; 83880; 84484; 85025; 93005; 93970; 96365; 99291; J1650; J1953; J1956; J7030

== ENCOUNTER 2019-11-18 19:54 | Inpatient (IN) | payer SELFPAY ==
[~2019-11-18] VITALS: Ht 182.9 cm; Wt 91.2 kg
[2019-11-18] MEDS ORDERED: SODIUM CHLORIDE 0.9% 1,000 ML IV ONE (20:20)
[2019-11-18 20:57] LABS: BASOPHILS % 0.4 % (0.0-2.0); EOSINOPHILS % 2.4 % (0.0-5.0); HEMATOCRIT. 45.5 % (42.0-52.0); HEMOGLOBIN. 15.2 g/dL (14.0-18.0); LYMPHOCYTES % 25.4 % (20.0-50.0); MEAN CORPUSCULAR HEMOGLOBIN 29.8 pg (28.0-32.0); MEAN CORPUSCULAR VOLUME 89.4 fL (80.0-94.0); MONOCYTES % 8.8 % (2.0-8.0); RED BLOOD CELL COUNT 5.09 mill/uL (4.7-6.1); RED CELL DISTRIBUTION WIDTH 14.6 % (11.6-14.6)
[2019-11-18 20:58] LABS: CHLORIDE 107 mEq/L (98-107)
[2019-11-18 20:59] LABS: PROTHROMBIN TIME 10.7 sec (9.6-11.0)
[2019-11-18 21:20] LABS: CLARITY URINE CLOUDY (CLEAR); COLOR URINE DARK YELLOW (YELLOW); KETONES URINE TRACE (NEGATIVE); LEUKOCYTE ESTERASE URINE TRACE (NEGATIVE); NITRITE URINE NEGATIVE (NEGATIVE); OCCULT BLOOD URINE NEGATIVE (NEGATIVE); PH URINE 5.5 (4.5-8.0); PROTEIN URINE 2+ (NEGATIVE); SPECIFIC GRAVITY URINE 1.023 (1.005-1.030)
[2019-11-18] MEDS ORDERED: LORAZEPAM 1MG TABLET PO ONE (23:45)
[2019-11-19] MEDS ORDERED: DIPHENHYDRAMINE 50MG/ML VIAL IV PRN (01:45)
[2019-11-19] MEDS ORDERED: ACETAMINOPHEN 325MG TABLET PO PRN ×2 (01:45)
[2019-11-19] MEDS ORDERED: CLONIDINE 0.1MG TABLET PO PRN (01:45)
[2019-11-19] MEDS ORDERED: ZOLPIDEM TARTRATE 5MG TABLET PO PRN (01:45)
[2019-11-19] MEDS ORDERED: MAGNESIUM/ALUMINUM HYDROXIDE/SIMETHICONE 30ML UDC PO PRN (01:45)
[2019-11-19] MEDS ORDERED: HYDRALAZINE 20MG/ML VIAL IV PRN (01:45)
[2019-11-19] MEDS ORDERED: ONDANSETRON HCL 4MG/2ML INJ IV PRN (01:45)
[2019-11-19] MEDS ORDERED: LEVETIRACETAM 250 MG in SODIUM CHLORIDE 0.9% 100 ML IV SCH ×2 (04:00→09:00)
[2019-11-19 04:30] VITALS: BP 134/53
[2019-11-19] MEDS: SODIUM CHLORIDE 0.9% INJ 3ML FLUSH IVF SCH ×3 (06:49→21:42)
[2019-11-19 08:30] VITALS: BP 115/82
[2019-11-19] MEDS: TAMSULOSIN HCL 0.4MG SR CAPSULE PO SCH (08:54)
[2019-11-19] MEDS: CLOPIDOGREL 75MG TABLET PO SCH (08:54)
[2019-11-19] MEDS: LOSARTAN POTASSIUM 25 MG TABLET PO SCH (08:55)
[2019-11-19] MEDS: ASPIRIN 81MG EC TABLET PO SCH (08:55)
[2019-11-19] MEDS: FAMOTIDINE 20MG TABLET PO SCH ×2 (08:55→21:42)
[2019-11-19 11:57] VITALS: BP 119/72
[2019-11-19] MEDS: ENOXAPARIN 40MG/0.4ML SYR SUBCUT SCH (12:30)
[2019-11-19 15:33] VITALS: BP 126/82
[2019-11-19 20:00] VITALS: BP 122/80
[2019-11-19] MEDS: LEVETIRACETAM 500MG PREMIX 100 ML IV SCH (21:42)
[2019-11-19] MEDS: LORAZEPAM 2MG/ML CPJ IV PRN (23:08)
[2019-11-20 00:11] VITALS: BP 162/62
[2019-11-20 04:00] VITALS: BP 148/58
[2019-11-20] MEDS: SODIUM CHLORIDE 0.9% INJ 3ML FLUSH IVF SCH ×2 (05:36→13:22)
[2019-11-20 08:00] VITALS: BP 183/99
[2019-11-20] MEDS: CLOPIDOGREL 75MG TABLET PO SCH (08:59)
[2019-11-20] MEDS: LEVETIRACETAM 500MG PREMIX 100 ML IV SCH (08:59)
[2019-11-20] MEDS: TAMSULOSIN HCL 0.4MG SR CAPSULE PO SCH (09:00)
[2019-11-20] MEDS: FAMOTIDINE 20MG TABLET PO SCH (09:02)
[2019-11-20] MEDS: LOSARTAN POTASSIUM 25 MG TABLET PO SCH (09:02)
[2019-11-20] MEDS: ASPIRIN 81MG EC TABLET PO SCH (09:03)
[2019-11-20] MEDS: ENOXAPARIN 40MG/0.4ML SYR SUBCUT SCH (09:04)
[2019-11-20] MEDS: LORAZEPAM 2MG/ML CPJ IV PRN (09:09)
[2019-11-20 12:00] VITALS: BP 161/80
[2019-11-20 16:00] VITALS: BP 159/75
[2019-11-20] MEDS ORDERED: LEVE500T19 MT (17:41)
[2019-11-20 17:42] VITALS: BP 159/75
== END 2019-11-20 20:32 | disposition home or self-care (01) | DRG 53 ==
LOC: ER 19:54 → MICUSO 23:37 → 5WST 11-19 04:42
PROVIDERS: ADMIT Internal Medicine; ATTEND Internal Medicine
DX: G40.909 Epilepsy, unspecified, not intractable, without status epilepticus (principal); I50.9 Heart failure, unspecified; F03.90 Unspecified dementia, unspecified severity, without behavioral disturbance, psychotic disturbance, mood disturbance, and anxiety; I11.0 Hypertensive heart disease with heart failure; G90.8 Other disorders of autonomic nervous system; N40.0 Benign prostatic hyperplasia without lower urinary tract symptoms; Z86.73 Personal history of transient ischemic attack (TIA), and cerebral infarction without residual deficits; Z79.899 Other long term (current) drug therapy; Z79.82 Long term (current) use of aspirin
CPT/HCPCS: 36415; 71045; 80053; 81003; 85025; 93005; 97162; 99285; J0360; J1200; J1650; J1953; J2060; J7030; J7050

== ENCOUNTER 2019-11-29 15:19 | Inpatient (IN) | payer MEDICAID, OTHER ==
[2019-11-29] VITALS (8 sets, daily range): BP systolic 119–169; BP diastolic 68–91
[~2019-11-29] VITALS: Ht 175.3 cm; Wt 81.6 kg
[~2019-11-29 15:19] MED LIST changes: -LEVE250T2 PO; +LEVE500T19 MT
[2019-11-29] MEDS ORDERED: SODIUM CHLORIDE 0.9% 1000ML BAG (SEPSIS BOLUS) IV ONE (15:45)
[2019-11-29 15:58] LABS: BASOPHILS % 0.9 % (0.0-2.0); EOSINOPHILS % 3.8 % (0.0-5.0); HEMATOCRIT. 39.7 % (42.0-52.0); HEMOGLOBIN. 13.5 g/dL (14.0-18.0); LYMPHOCYTES % 42.9 % (20.0-50.0); MEAN CORPUSCULAR HEMOGLOBIN 29.8 pg (28.0-32.0); MEAN PLATELET VOLUME 7.1 fl (7.4-10.4); MONOCYTES % 12.3 % (2.0-8.0); NEUTROPHILS % 40.1 % (40.0-76.0); PLATELET 187 x1000/uL (130-400); RED BLOOD CELL COUNT 4.51 mill/uL (4.7-6.1)
[2019-11-29] MEDS ORDERED: MIDAZOLAM HCL 2 MG/2 ML VIAL IV ONE (16:00)
[2019-11-29] MEDS ORDERED: MIDAZOLAM HCL 100 MG in DEXT 5% WATER 80 ML IV SCH (16:00)
[2019-11-29] MEDS ORDERED: MIDAZOLAM HCL 50 MG in DEXTROSE 5% WATER 40 ML IV ONE (16:00)
[2019-11-29 16:04] LABS: CHLORIDE 110 mEq/L (98-107)
[2019-11-29 16:05] LABS: PROTHROMBIN TIME 10.7 sec (9.6-11.0)
[2019-11-29 16:09] LABS: ETHANOL BLOOD < 10 mg/dL
[2019-11-29] MEDS ORDERED: PIPERACILLIN SODIUM/TAZOBACTAM 4.5 G in DEXT 5% WATER 100 ML IV SCH (16:15)
[2019-11-29] MEDS ORDERED: VANCOMYCIN 1 G PREMIX 200 ML IV SCH (16:15)
[2019-11-29 16:21] LABS: CLARITY URINE CLEAR (CLEAR); COLOR URINE YELLOW (YELLOW); KETONES URINE NEGATIVE (NEGATIVE); LEUKOCYTE ESTERASE URINE NEGATIVE (NEGATIVE); NITRITE URINE NEGATIVE (NEGATIVE); OCCULT BLOOD URINE NEGATIVE (NEGATIVE); PROTEIN URINE NEGATIVE (NEGATIVE); SPECIFIC GRAVITY URINE 1.012 (1.005-1.030); UROBILINOGEN URINE 0.2 E.U./dL (0.2-1.0)
[2019-11-29] MEDS ORDERED: LEVETIRACETAM 500MG PREMIX 100 ML IV ONE (16:30)
[2019-11-29 16:57] LABS: BG BASE EXCESS -4.2 mmol/L (-2.0-2.0); BG CARBOXYHEMOGLOBIN 0.4 % (0.5-1.5); BG DEOXYHEMOGLOBIN 3.9 % (0.0-5.0); BG FRACTION INSPIRED OXYGEN 60; BG HCO3 ACT 25.3 mmol/L (22.0-26.0); BG METHEMOGLOBIN 0.2 % (0.0-1.5); BG OXYGEN SATURATION 96.1 % (92.0-98.5); BG OXYHEMOGLOBIN 95.5 % (94.0-97.0); BG PCO2 66.7 mmHg (35.0-45.0); BG PH 7.196 (7.350-7.450); BG PO2 98.2 mmHg (75.0-100.0); BG SAMPLE SITE RIGHT RADIAL; BG TIDAL VOLUME(mL) 500 mL; BG TOTAL HEMOGLOBIN 13.8 g/dL (12.0-18.0); BG VENT MODE VENT - A/C; BG VENT RATE 14 set
[2019-11-29 17:16] LABS: *AMPHETAMINES SCREEN URINE NEGATIVE (NEGATIVE); *BARBITURATES SCREEN URINE NEGATIVE (NEGATIVE); CANNABINOID URINE SCREEN NEGATIVE (NEGATIVE); PHENCYCLIDINE URINE SCREEN NEGATIVE (NEGATIVE)
[2019-11-29 17:17] LABS: *BENZODIAZEPINES SCREEN URINE NEGATIVE (NEGATIVE); *COCAINE SCREEN URINE NEGATIVE (NEGATIVE); METHADONE URINE SCREEN NEGATIVE (NEGATIVE); OPIATES URINE SCREEN NEGATIVE (NEGATIVE)
[2019-11-29] MEDS: FENTANYL CITRATE/PF 1,000 MCG in SODIUM CHLORIDE 0.9% 100 ML IV PRN (19:05)
[2019-11-29] MEDS ORDERED: ONDANSETRON HCL 4MG/2ML INJ IV PRN (23:30)
[2019-11-29] MEDS ORDERED: CLONIDINE 0.1MG TABLET PO PRN (23:30)
[2019-11-30] VITALS (86 sets, daily range): BP systolic 81–169; BP diastolic 47–94
[2019-11-30] MEDS: IPRATROPIUM/ALBUTEROL 0.5-3(2.5)MG/3ML NEB NEB PRN ×4 (03:13→16:24)
[2019-11-30] MEDS: PANTOPRAZOLE SODIUM 40 MG/VIAL IV SCH ×2 (04:03→10:04)
[2019-11-30 05:23] LABS: HEMATOCRIT. 42.6 % (42.0-52.0); HEMOGLOBIN. 14.3 g/dL (14.0-18.0); MEAN CORPUSCULAR VOLUME 89.6 fL (80.0-94.0); MEAN PLATELET VOLUME 7.5 fl (7.4-10.4); RED BLOOD CELL COUNT 4.75 mill/uL (4.7-6.1); RED CELL DISTRIBUTION WIDTH 15.3 % (11.6-14.6)
[2019-11-30 05:34] LABS: CHLORIDE 107 mEq/L (98-107)
[2019-11-30 05:51] LABS: CREATINE KINASE 107 IU/L (39-308); CREATINE KINASE MB FRACTION 3.5 ng/mL (0.5-3.6); LDL CHOLESTEROL 39 mg/dL (5-100)
[2019-11-30 05:54] LABS: HDL CHOLESTEROL 52 mg/dL (40-59)
[2019-11-30 09:07] LABS: BG BASE EXCESS -2.4 mmol/L (-2.0-2.0); BG CARBOXYHEMOGLOBIN 0.2 % (0.5-1.5); BG DEOXYHEMOGLOBIN 1.2 % (0.0-5.0); BG FRACTION INSPIRED OXYGEN 60; BG HCO3 ACT 23.8 mmol/L (22.0-26.0); BG METHEMOGLOBIN 0.4 % (0.0-1.5); BG OXYGEN SATURATION 98.8 % (92.0-98.5); BG OXYHEMOGLOBIN 98.2 % (94.0-97.0); BG PCO2 46.3 mmHg (35.0-45.0); BG PH 7.329 (7.350-7.450); BG PO2 139.5 mmHg (75.0-100.0); BG SAMPLE SITE RIGHT BRACHIAL; BG TIDAL VOLUME(mL) 500 mL; BG TOTAL HEMOGLOBIN 14.5 g/dL (12.0-18.0); BG VENT MODE VENT - A/C; BG VENT RATE 18 set
[2019-11-30] MEDS: LEVETIRACETAM 500MG PREMIX 100 ML IV SCH ×2 (10:03→20:56)
[2019-11-30] MEDS: HEPARIN 5000 UNITS/ML VIAL SUBCUT SCH ×2 (10:04→20:56)
[2019-11-30 10:55] LABS: ATYPICAL LYMPHOCYTES 1
[2019-11-30 10:56] LABS: PLATELET ESTIMATE NORMAL
[2019-11-30 10:57] LABS: PLATELET 198 x1000/uL (130-400)
[2019-11-30] MEDS: MIDAZOLAM HCL 100 MG in DEXT 5% WATER 80 ML IV PRN (11:26)
[2019-11-30] MEDS ORDERED: NOREPINEPHRINE 4 MG in DEXT 5% WATER 246 ML IV PRN (11:45)
[2019-11-30] MEDS ORDERED: DEXTROSE 50% WATER 50ML SYRINGE IV PRN (11:45)
[2019-11-30] MEDS: BLOOD SUGAR DIAGNOSTIC STRIP TEST SCH ×3 (11:45→23:48)
[2019-11-30] MEDS: SODIUM CHLORIDE 0.9% 1,000 ML IV SCH (11:45)
[2019-11-30] MEDS: INSULIN LISPRO 100 UNITS/ML SUBCUT SCH ×3 (12:00→20:56)
[2019-11-30] MEDS: FENTANYL CITRATE/PF 1,000 MCG in SODIUM CHLORIDE 0.9% 100 ML IV PRN (13:13)
[2019-11-30 16:23] LABS: CREATINE KINASE 256 IU/L (39-308); CREATINE KINASE MB FRACTION 3.2 ng/mL (0.5-3.6)
[2019-11-30] MEDS: PIPERACILLIN SODIUM/TAZOBACTAM 4.5 G in DEXT 5% WATER 100 ML IV SCH (18:11)
[2019-11-30] MEDS: VANCOMYCIN 1250MG in DEXTROSE 5% WATER 250ML IV SCH (19:07)
[2019-11-30] MEDS: IPRATROPIUM/ALBUTEROL 0.5-3(2.5)MG/3ML NEB HHN SCH ×2 (20:23→23:51)
[2019-12-01] VITALS (91 sets, daily range): BP systolic 80–156; BP diastolic 36–104
[2019-12-01] MEDS: PIPERACILLIN SODIUM/TAZOBACTAM 4.5 G in DEXT 5% WATER 100 ML IV SCH ×3 (01:48→18:25)
[2019-12-01] MEDS: IPRATROPIUM/ALBUTEROL 0.5-3(2.5)MG/3ML NEB HHN SCH ×2 (04:00→20:27)
[2019-12-01 05:40] LABS: BASOPHILS % 0.3 % (0.0-2.0); EOSINOPHILS % 0.8 % (0.0-5.0); HEMOGLOBIN. 12.3 g/dL (14.0-18.0); LYMPHOCYTES % 7.5 % (20.0-50.0); MEAN CORPUSCULAR HEMOGLOBIN 29.8 pg (28.0-32.0); MEAN CORPUSCULAR VOLUME 89.5 fL (80.0-94.0); MEAN PLATELET VOLUME 7.4 fl (7.4-10.4); MONOCYTES % 9.2 % (2.0-8.0); NEUTROPHILS % 82.2 % (40.0-76.0); PLATELET 168 x1000/uL (130-400); RED BLOOD CELL COUNT 4.13 mill/uL (4.7-6.1)
[2019-12-01] MEDS: BLOOD SUGAR DIAGNOSTIC STRIP TEST SCH ×4 (05:51→23:23)
[2019-12-01] MEDS: INSULIN LISPRO 100 UNITS/ML SUBCUT SCH ×4 (05:51→23:23)
[2019-12-01] MEDS: ACETAMINOPHEN 650MG/20.3ML UDC GT PRN (06:54)
[2019-12-01] MEDS ORDERED: DILTIAZEM HCL 5MG/ML 5ML VIAL IV NR (08:06)
[2019-12-01] MEDS ORDERED: DILTIAZEM HCL 5MG/ML 5ML VIAL IV ONE (09:30)
[2019-12-01 09:38] LABS: BG BASE EXCESS -4.5 mmol/L (-2.0-2.0); BG CARBOXYHEMOGLOBIN 0.3 % (0.5-1.5); BG DEOXYHEMOGLOBIN 1.7 % (0.0-5.0); BG FRACTION INSPIRED OXYGEN 40; BG HCO3 ACT 21.2 mmol/L (22.0-26.0); BG METHEMOGLOBIN 0.2 % (0.0-1.5); BG OXYGEN SATURATION 98.3 % (92.0-98.5); BG OXYHEMOGLOBIN 97.8 % (94.0-97.0); BG PCO2 41.2 mmHg (35.0-45.0); BG PH 7.329 (7.350-7.450); BG SAMPLE SITE RIGHT BRACHIAL; BG TIDAL VOLUME(mL) 500 mL; BG TOTAL HEMOGLOBIN 12.6 g/dL (12.0-18.0); BG VENT MODE VENT - A/C; BG VENT RATE 18 set
[2019-12-01] MEDS: SODIUM CHLORIDE 0.9% 1,000 ML IV SCH ×3 (09:59→21:22)
[2019-12-01] MEDS: PANTOPRAZOLE SODIUM 40 MG/VIAL IV SCH (10:11)
[2019-12-01] MEDS: HEPARIN 5000 UNITS/ML VIAL SUBCUT SCH ×2 (10:12→20:12)
[2019-12-01] MEDS: LEVETIRACETAM 500MG PREMIX 100 ML IV SCH ×2 (10:12→21:23)
[2019-12-01] MEDS: MIDODRINE HCL 5MG TABLET PO SCH (10:12)
[2019-12-01] MEDS ORDERED: DIGOXIN 500MCG/2ML AMP IV NR (11:45)
[2019-12-01] MEDS: BUDESONIDE 0.5MG/2ML NEB HHN SCH ×2 (12:36→20:27)
[2019-12-01] MEDS: IPRATROPIUM BROMIDE (0.02%) 0.5MG/2.5ML NEB HHN PRN ×2 (12:36→17:08)
[2019-12-01] MEDS: FENTANYL CITRATE/PF 1,000 MCG in SODIUM CHLORIDE 0.9% 100 ML IV PRN (14:54)
[2019-12-01] MEDS: DIGOXIN 500MCG/2ML AMP IV SCH (18:24)
[2019-12-01] MEDS: VANCOMYCIN 1250MG in DEXTROSE 5% WATER 250ML IV SCH (18:25)
[2019-12-01] MEDS: MIDAZOLAM HCL 100 MG in DEXT 5% WATER 80 ML IV PRN (20:14)
[2019-12-02] VITALS (90 sets, daily range): BP systolic 65–157; BP diastolic 39–99
[2019-12-02] MEDS: IPRATROPIUM/ALBUTEROL 0.5-3(2.5)MG/3ML NEB HHN SCH ×6 (00:17→20:31)
[2019-12-02] MEDS: PIPERACILLIN SODIUM/TAZOBACTAM 4.5 G in DEXT 5% WATER 100 ML IV SCH ×3 (02:31→17:38)
[2019-12-02 05:29] LABS: BASOPHILS % 0.3 % (0.0-2.0); EOSINOPHILS % 1.8 % (0.0-5.0); HEMATOCRIT. 37.2 % (42.0-52.0); HEMOGLOBIN. 12.6 g/dL (14.0-18.0); LYMPHOCYTES % 8.1 % (20.0-50.0); MEAN CORPUSCULAR HEMOGLOBIN 30.5 pg (28.0-32.0); MEAN CORPUSCULAR VOLUME 89.8 fL (80.0-94.0); MEAN PLATELET VOLUME 7.5 fl (7.4-10.4); MONOCYTES % 9.4 % (2.0-8.0); NEUTROPHILS % 80.4 % (40.0-76.0); PLATELET 131 x1000/uL (130-400); RED BLOOD CELL COUNT 4.14 mill/uL (4.7-6.1); RED CELL DISTRIBUTION WIDTH 15.1 % (11.6-14.6)
[2019-12-02 05:49] LABS: CHLORIDE 108 mEq/L (98-107)
[2019-12-02] MEDS: BLOOD SUGAR DIAGNOSTIC STRIP TEST SCH ×3 (05:51→17:38)
[2019-12-02] MEDS: INSULIN LISPRO 100 UNITS/ML SUBCUT SCH ×3 (05:52→17:38)
[2019-12-02] MEDS: PANTOPRAZOLE SODIUM 40 MG/VIAL IV SCH (09:00)
[2019-12-02] MEDS: SODIUM CHLORIDE 0.9% 1,000 ML IV SCH ×2 (09:00→18:53)
[2019-12-02] MEDS: LEVETIRACETAM 500MG PREMIX 100 ML IV SCH ×2 (09:00→20:36)
[2019-12-02] MEDS: HEPARIN 5000 UNITS/ML VIAL SUBCUT SCH ×2 (09:01→20:37)
[2019-12-02] MEDS: BUDESONIDE 0.5MG/2ML NEB HHN SCH ×2 (09:23→20:30)
[2019-12-02] MEDS: MIDODRINE HCL 5MG TABLET PO SCH (09:30)
[2019-12-02 09:56] LABS: BG BASE EXCESS -5.1 mmol/L (-2.0-2.0); BG CARBOXYHEMOGLOBIN 0.3 % (0.5-1.5); BG DEOXYHEMOGLOBIN 2.9 % (0.0-5.0); BG FRACTION INSPIRED OXYGEN 40; BG HCO3 ACT 21.2 mmol/L (22.0-26.0); BG METHEMOGLOBIN 0.2 % (0.0-1.5); BG OXYGEN SATURATION 97.1 % (92.0-98.5); BG OXYHEMOGLOBIN 96.6 % (94.0-97.0); BG PCO2 44.1 mmHg (35.0-45.0); BG PH 7.299 (7.350-7.450); BG PO2 104.1 mmHg (75.0-100.0); BG SAMPLE SITE LEFT BRACHIAL; BG TIDAL VOLUME(mL) 500 mL; BG TOTAL HEMOGLOBIN 12.2 g/dL (12.0-18.0); BG VENT MODE VENT - A/C; BG VENT RATE 18 set
[2019-12-02] MEDS: VANCOMYCIN 1250MG in DEXTROSE 5% WATER 250ML IV SCH (10:56)
[2019-12-02] MEDS: FENTANYL CITRATE/PF 1,000 MCG in SODIUM CHLORIDE 0.9% 100 ML IV PRN (17:13)
[2019-12-02] MEDS: DIGOXIN 500MCG/2ML AMP IV SCH (17:50)
[2019-12-02] MEDS: MIDAZOLAM HCL 100 MG in DEXT 5% WATER 80 ML IV PRN (21:12)
[2019-12-02] MEDS: DILTIAZEM HCL 5MG/ML 5ML VIAL IV PRN (22:56)
[2019-12-03] VITALS (76 sets, daily range): BP systolic 108–177; BP diastolic 50–94
[2019-12-03] MEDS: BLOOD SUGAR DIAGNOSTIC STRIP TEST SCH ×5 (00:28→23:45)
[2019-12-03] MEDS: IPRATROPIUM/ALBUTEROL 0.5-3(2.5)MG/3ML NEB HHN SCH ×8 (00:34→19:55)
[2019-12-03] MEDS: ACETAMINOPHEN 650MG/20.3ML UDC GT PRN (01:25)
[2019-12-03] MEDS: DILTIAZEM HCL 5MG/ML 5ML VIAL IV PRN (01:25)
[2019-12-03] MEDS: CLONIDINE 0.1MG TABLET PO PRN ×2 (01:26→14:38)
[2019-12-03] MEDS: PIPERACILLIN SODIUM/TAZOBACTAM 4.5 G in DEXT 5% WATER 100 ML IV SCH ×3 (01:33→17:06)
[2019-12-03] MEDS: VANCOMYCIN 1250MG in DEXTROSE 5% WATER 250ML IV SCH ×2 (04:23→22:54)
[2019-12-03] MEDS: INSULIN LISPRO 100 UNITS/ML SUBCUT SCH ×4 (06:00→17:02)
[2019-12-03] MEDS: SODIUM CHLORIDE 0.9% 1,000 ML IV SCH ×2 (06:37→17:02)
[2019-12-03] MEDS: BUDESONIDE 0.5MG/2ML NEB HHN SCH ×2 (09:10→19:55)
[2019-12-03] MEDS: PANTOPRAZOLE SODIUM 40 MG/VIAL IV SCH (09:18)
[2019-12-03] MEDS: HEPARIN 5000 UNITS/ML VIAL SUBCUT SCH ×2 (09:19→21:44)
[2019-12-03] MEDS: MIDODRINE HCL 5MG TABLET PO SCH (09:19)
[2019-12-03] MEDS: LEVETIRACETAM 500MG PREMIX 100 ML IV SCH ×2 (09:20→21:42)
[2019-12-03] MEDS: MIDAZOLAM HCL 100 MG in DEXT 5% WATER 80 ML IV PRN (10:21)
[2019-12-03 10:57] LABS: BG BASE EXCESS 0.9 mmol/L (-2.0-2.0); BG CARBOXYHEMOGLOBIN 0.3 % (0.5-1.5); BG DEOXYHEMOGLOBIN 4.2 % (0.0-5.0); BG FRACTION INSPIRED OXYGEN 40; BG HCO3 ACT 26.5 mmol/L (22.0-26.0); BG METHEMOGLOBIN 0.6 % (0.0-1.5); BG OXYGEN SATURATION 95.8 % (92.0-98.5); BG OXYHEMOGLOBIN 94.9 % (94.0-97.0); BG PCO2 46.1 mmHg (35.0-45.0); BG PH 7.377 (7.350-7.450); BG PO2 84.1 mmHg (75.0-100.0); BG SAMPLE SITE RIGHT RADIAL; BG TIDAL VOLUME(mL) 500 mL; BG TOTAL HEMOGLOBIN 11.4 g/dL (12.0-18.0); BG VENT MODE VENT - A/C; BG VENT RATE 18 set
[2019-12-03 12:01] LABS: BASOPHILS % 0.3 % (0.0-2.0); EOSINOPHILS % 2.1 % (0.0-5.0); HEMATOCRIT. 32.5 % (42.0-52.0); HEMOGLOBIN. 10.9 g/dL (14.0-18.0); LYMPHOCYTES % 11.4 % (20.0-50.0); MEAN CORPUSCULAR HEMOGLOBIN 29.9 pg (28.0-32.0); MEAN CORPUSCULAR VOLUME 89.1 fL (80.0-94.0); MEAN PLATELET VOLUME 7.7 fl (7.4-10.4); MONOCYTES % 9.1 % (2.0-8.0); NEUTROPHILS % 77.1 % (40.0-76.0); PLATELET 154 x1000/uL (130-400); RED BLOOD CELL COUNT 3.64 mill/uL (4.7-6.1); RED CELL DISTRIBUTION WIDTH 15.4 % (11.6-14.6)
[2019-12-03 12:10] LABS: CHLORIDE 112 mEq/L (98-107)
[2019-12-03 12:31] LABS: DIGOXIN 0.8 ng/mL (0.9-2.0)
[2019-12-03 15:30] LABS: BG BASE EXCESS 0.6 mmol/L (-2.0-2.0); BG CARBOXYHEMOGLOBIN 0.3 % (0.5-1.5); BG DEOXYHEMOGLOBIN 6.5 % (0.0-5.0); BG FRACTION INSPIRED OXYGEN 40; BG HCO3 ACT 27.2 mmol/L (22.0-26.0); BG METHEMOGLOBIN 0.4 % (0.0-1.5); BG OXYGEN SATURATION 93.5 % (92.0-98.5); BG OXYHEMOGLOBIN 92.8 % (94.0-97.0); BG PCO2 52.2 mmHg (35.0-45.0); BG PH 7.335 (7.350-7.450); BG PO2 72.8 mmHg (75.0-100.0); BG PRESSURE SUPPORT 8; BG SAMPLE SITE RIGHT RADIAL; BG TOTAL HEMOGLOBIN 12.4 g/dL (12.0-18.0); BG VENT MODE VENT - CPAP
[2019-12-03] MEDS: DILTIAZEM HCL 60MG TABLET PO SCH (17:06)
[2019-12-04] VITALS (31 sets, daily range): BP systolic 106–189; BP diastolic 44–101
[2019-12-04] MEDS: IPRATROPIUM/ALBUTEROL 0.5-3(2.5)MG/3ML NEB HHN SCH ×6 (01:20→20:11)
[2019-12-04] MEDS: PIPERACILLIN SODIUM/TAZOBACTAM 4.5 G in DEXT 5% WATER 100 ML IV SCH ×3 (02:00→18:26)
[2019-12-04] MEDS: FENTANYL CITRATE/PF 1,000 MCG in SODIUM CHLORIDE 0.9% 100 ML IV PRN (04:30)
[2019-12-04] MEDS: SODIUM CHLORIDE 0.9% 1,000 ML IV SCH ×2 (04:41→21:30)
[2019-12-04] MEDS: BLOOD SUGAR DIAGNOSTIC STRIP TEST SCH ×3 (05:45→18:26)
[2019-12-04] MEDS: DILTIAZEM HCL 60MG TABLET PO SCH ×2 (06:00)
[2019-12-04] MEDS: INSULIN LISPRO 100 UNITS/ML SUBCUT SCH ×4 (06:00→18:00)
[2019-12-04 06:58] LABS: BASOPHILS % 0.2 % (0.0-2.0); EOSINOPHILS % 1.7 % (0.0-5.0); HEMATOCRIT. 32.9 % (42.0-52.0); HEMOGLOBIN. 11.2 g/dL (14.0-18.0); LYMPHOCYTES % 11.3 % (20.0-50.0); MEAN CORPUSCULAR HEMOGLOBIN 30.2 pg (28.0-32.0); MEAN PLATELET VOLUME 7.7 fl (7.4-10.4); MONOCYTES % 11.9 % (2.0-8.0); NEUTROPHILS % 74.9 % (40.0-76.0); PLATELET 175 x1000/uL (130-400); RED CELL DISTRIBUTION WIDTH 15.5 % (11.6-14.6)
[2019-12-04 07:03] LABS: CHLORIDE 108 mEq/L (98-107)
[2019-12-04 08:09] LABS: BG BASE EXCESS 3.5 mmol/L (-2.0-2.0); BG CARBOXYHEMOGLOBIN 0.3 % (0.5-1.5); BG DEOXYHEMOGLOBIN 3.7 % (0.0-5.0); BG HCO3 ACT 27.9 mmol/L (22.0-26.0); BG METHEMOGLOBIN 0.5 % (0.0-1.5); BG OXYGEN SATURATION 96.3 % (92.0-98.5); BG OXYHEMOGLOBIN 95.5 % (94.0-97.0); BG PCO2 41.5 mmHg (35.0-45.0); BG PH 7.445 (7.350-7.450); BG SAMPLE SITE RIGHT RADIAL; BG TIDAL VOLUME(mL) 500 mL; BG TOTAL HEMOGLOBIN 10.9 g/dL (12.0-18.0); BG VENT MODE VENT - A/C; BG VENT RATE 18 set
[2019-12-04] MEDS: PANTOPRAZOLE SODIUM 40 MG/VIAL IV SCH (08:50)
[2019-12-04] MEDS: HEPARIN 5000 UNITS/ML VIAL SUBCUT SCH ×2 (08:51→21:00)
[2019-12-04] MEDS: BUDESONIDE 0.5MG/2ML NEB HHN SCH (09:00)
[2019-12-04] MEDS: ACETAMINOPHEN 650MG/20.3ML UDC GT PRN (09:21)
[2019-12-04] MEDS: MIDODRINE HCL 5MG TABLET PO SCH (09:30)
[2019-12-04] MEDS: LEVETIRACETAM 500MG PREMIX 100 ML IV SCH ×2 (09:33→21:00)
[2019-12-04] MEDS: DILTIAZEM HCL 90MG TABLET PO SCH ×2 (12:07→18:26)
[2019-12-04] MEDS: VANCOMYCIN 1250MG in DEXTROSE 5% WATER 250ML IV SCH (17:00)
[2019-12-05] VITALS (50 sets, daily range): BP systolic 109–199; BP diastolic 41–90
[2019-12-05] MEDS: BLOOD SUGAR DIAGNOSTIC STRIP TEST SCH ×5 (01:24→23:50)
[2019-12-05] MEDS: INSULIN LISPRO 100 UNITS/ML SUBCUT SCH ×5 (01:24→23:50)
[2019-12-05] MEDS: PIPERACILLIN SODIUM/TAZOBACTAM 4.5 G in DEXT 5% WATER 100 ML IV SCH ×3 (02:57→17:59)
[2019-12-05] MEDS: SODIUM CHLORIDE 0.9% 1,000 ML IV SCH ×2 (03:23→13:10)
[2019-12-05] MEDS: IPRATROPIUM/ALBUTEROL 0.5-3(2.5)MG/3ML NEB HHN SCH ×7 (03:59→20:41)
[2019-12-05] MEDS: DILTIAZEM HCL 90MG TABLET PO SCH ×5 (06:03→23:45)
[2019-12-05 06:14] LABS: BASOPHILS % 0.3 % (0.0-2.0); EOSINOPHILS % 2.1 % (0.0-5.0); HEMATOCRIT. 30.1 % (42.0-52.0); HEMOGLOBIN. 10.1 g/dL (14.0-18.0); LYMPHOCYTES % 15.2 % (20.0-50.0); MEAN CORPUSCULAR HEMOGLOBIN 29.7 pg (28.0-32.0); MEAN CORPUSCULAR VOLUME 88.7 fL (80.0-94.0); MEAN PLATELET VOLUME 7.7 fl (7.4-10.4); MONOCYTES % 13.6 % (2.0-8.0); NEUTROPHILS % 68.8 % (40.0-76.0); PLATELET 169 x1000/uL (130-400); RED CELL DISTRIBUTION WIDTH 15.4 % (11.6-14.6)
[2019-12-05 06:29] LABS: CHLORIDE 108 mEq/L (98-107)
[2019-12-05 07:52] LABS: BG BASE EXCESS -5.4 mmol/L (-2.0-2.0); BG CARBOXYHEMOGLOBIN 0.2 % (0.5-1.5); BG HCO3 ACT 18.8 mmol/L (22.0-26.0); BG METHEMOGLOBIN 2.3 % (0.0-1.5); BG OXYGEN SATURATION 97.9 % (92.0-98.5); BG OXYHEMOGLOBIN 95.5 % (94.0-97.0); BG PCO2 29.8 mmHg (35.0-45.0); BG PH 7.417 (7.350-7.450); BG PO2 110.4 mmHg (75.0-100.0); BG SAMPLE SITE RIGHT RADIAL; BG TIDAL VOLUME(mL) 500 mL; BG TOTAL HEMOGLOBIN 4.7 g/dL (12.0-18.0); BG VENT MODE VENT - A/C; BG VENT RATE 18 set
[2019-12-05] MEDS: PANTOPRAZOLE SODIUM 40 MG/VIAL IV SCH (09:04)
[2019-12-05] MEDS: HEPARIN 5000 UNITS/ML VIAL SUBCUT SCH ×2 (09:04→20:28)
[2019-12-05] MEDS: MIDODRINE HCL 5MG TABLET PO SCH (09:05)
[2019-12-05] MEDS: LEVETIRACETAM 500MG PREMIX 100 ML IV SCH ×2 (09:06→20:28)
[2019-12-05] MEDS: VANCOMYCIN 1250MG in DEXTROSE 5% WATER 250ML IV SCH (11:04)
[2019-12-05] MEDS ORDERED: FENTANYL CITRATE/PF 1,000 MCG in SODIUM CHLORIDE 0.9% 80 ML IV PRN (11:30)
[2019-12-05] MEDS ORDERED: MIDAZOLAM HCL 100 MG in DEXT 5% WATER 80 ML IV PRN (11:30)
[2019-12-05] MEDS: ACETAMINOPHEN 650MG/20.3ML UDC GT PRN (12:56)
[2019-12-06] VITALS (70 sets, daily range): BP systolic 103–166; BP diastolic 43–93
[2019-12-06] MEDS: IPRATROPIUM/ALBUTEROL 0.5-3(2.5)MG/3ML NEB HHN SCH ×6 (00:13→20:22)
[2019-12-06] MEDS: CLONIDINE 0.1MG TABLET PO PRN (02:29)
[2019-12-06] MEDS: SODIUM CHLORIDE 0.9% 1,000 ML IV SCH ×3 (02:30→12:11)
[2019-12-06 04:24] LABS: CHLORIDE 108 mEq/L (98-107)
[2019-12-06 04:30] LABS: BASOPHILS % 0.4 % (0.0-2.0); EOSINOPHILS % 3.4 % (0.0-5.0); HEMATOCRIT. 31.7 % (42.0-52.0); HEMOGLOBIN. 10.6 g/dL (14.0-18.0); LYMPHOCYTES % 13.5 % (20.0-50.0); MEAN CORPUSCULAR HEMOGLOBIN 29.9 pg (28.0-32.0); MEAN CORPUSCULAR VOLUME 89.4 fL (80.0-94.0); MEAN PLATELET VOLUME 7.2 fl (7.4-10.4); MONOCYTES % 11.3 % (2.0-8.0); NEUTROPHILS % 71.4 % (40.0-76.0); PLATELET 179 x1000/uL (130-400); RED BLOOD CELL COUNT 3.55 mill/uL (4.7-6.1); RED CELL DISTRIBUTION WIDTH 15.1 % (11.6-14.6)
[2019-12-06 04:33] LABS: VANCOMYCIN TROUGH 19.4 ug/mL (5.0-10.0)
[2019-12-06] MEDS: DILTIAZEM HCL 90MG TABLET PO SCH ×4 (05:09→23:25)
[2019-12-06] MEDS: BLOOD SUGAR DIAGNOSTIC STRIP TEST SCH ×4 (05:09→23:26)
[2019-12-06] MEDS: INSULIN LISPRO 100 UNITS/ML SUBCUT SCH ×4 (05:10→23:25)
[2019-12-06] MEDS: PANTOPRAZOLE SODIUM 40 MG/VIAL IV SCH (08:40)
[2019-12-06] MEDS: LEVETIRACETAM 500MG PREMIX 100 ML IV SCH ×2 (08:42→20:16)
[2019-12-06] MEDS: HEPARIN 5000 UNITS/ML VIAL SUBCUT SCH ×2 (08:42→20:15)
[2019-12-06 09:15] LABS: BG BASE EXCESS 1.3 mmol/L (-2.0-2.0); BG CARBOXYHEMOGLOBIN 0.3 % (0.5-1.5); BG DEOXYHEMOGLOBIN 3.5 % (0.0-5.0); BG FRACTION INSPIRED OXYGEN 40; BG HCO3 ACT 26.5 mmol/L (22.0-26.0); BG METHEMOGLOBIN 0.3 % (0.0-1.5); BG OXYGEN SATURATION 96.5 % (92.0-98.5); BG OXYHEMOGLOBIN 95.9 % (94.0-97.0); BG PH 7.397 (7.350-7.450); BG SAMPLE SITE RIGHT RADIAL; BG TIDAL VOLUME(mL) 500 mL; BG TOTAL HEMOGLOBIN 11.4 g/dL (12.0-18.0); BG VENT MODE VENT - A/C; BG VENT RATE 18 set
[2019-12-07] VITALS (23 sets, daily range): BP systolic 119–172; BP diastolic 52–100
[2019-12-07] MEDS: IPRATROPIUM/ALBUTEROL 0.5-3(2.5)MG/3ML NEB HHN SCH ×6 (00:19→20:19)
[2019-12-07] MEDS: CLONIDINE 0.1MG TABLET PO PRN ×3 (00:30→20:54)
[2019-12-07] MEDS: ACETAMINOPHEN 650MG/20.3ML UDC GT PRN ×2 (04:13→21:03)
[2019-12-07] MEDS: DILTIAZEM HCL 90MG TABLET PO SCH ×3 (05:59→17:34)
[2019-12-07] MEDS: INSULIN LISPRO 100 UNITS/ML SUBCUT SCH ×3 (05:59→17:34)
[2019-12-07] MEDS: BLOOD SUGAR DIAGNOSTIC STRIP TEST SCH ×3 (05:59→17:34)
[2019-12-07 06:22] LABS: BASOPHILS % 0.4 % (0.0-2.0); EOSINOPHILS % 4.4 % (0.0-5.0); HEMATOCRIT. 29.3 % (42.0-52.0); HEMOGLOBIN. 9.8 g/dL (14.0-18.0); LYMPHOCYTES % 14.8 % (20.0-50.0); MEAN CORPUSCULAR HEMOGLOBIN 29.8 pg (28.0-32.0); MEAN CORPUSCULAR VOLUME 89.5 fL (80.0-94.0); MEAN PLATELET VOLUME 7.4 fl (7.4-10.4); MONOCYTES % 10.5 % (2.0-8.0); NEUTROPHILS % 69.9 % (40.0-76.0); PLATELET 193 x1000/uL (130-400); RED BLOOD CELL COUNT 3.27 mill/uL (4.7-6.1)
[2019-12-07 06:42] LABS: CHLORIDE 109 mEq/L (98-107)
[2019-12-07] MEDS: MIDODRINE HCL 5MG TABLET PO SCH (08:28)
[2019-12-07] MEDS: HEPARIN 5000 UNITS/ML VIAL SUBCUT SCH ×2 (08:32→20:45)
[2019-12-07] MEDS: LEVETIRACETAM 500MG PREMIX 100 ML IV SCH ×2 (08:32→20:46)
[2019-12-07] MEDS: PANTOPRAZOLE SODIUM 40 MG/VIAL IV SCH (08:32)
[2019-12-07 10:07] LABS: BG BASE EXCESS 7.2 mmol/L (-2.0-2.0); BG CALCIUM 1.18 mmol/L (1.13-1.32); BG CARBOXYHEMOGLOBIN 0.3 % (0.5-1.5); BG CHLORIDE 106 mmol/L (98-106); BG DEOXYHEMOGLOBIN 4.4 % (0.0-5.0); BG FRACTION INSPIRED OXYGEN 40; BG HCO3 ACT 33.9 mmol/L (22.0-26.0); BG METHEMOGLOBIN 0.2 % (0.0-1.5); BG OXYGEN SATURATION 95.6 % (92.0-98.5); BG OXYHEMOGLOBIN 95.1 % (94.0-97.0); BG PCO2 59.1 mmHg (35.0-45.0); BG PH 7.376 (7.350-7.450); BG PO2 86.5 mmHg (75.0-100.0); BG POTASSIUM 4.08 mmol/L (3.50-5.30); BG SAMPLE SITE RIGHT RADIAL; BG SODIUM 137.1 mmol/L (135.0-148.0); BG TIDAL VOLUME(mL) 500 mL; BG TOTAL HEMOGLOBIN 11.2 g/dL (12.0-18.0); BG VENT MODE VENT - A/C; BG VENT RATE 18 set
[2019-12-07] MEDS: SODIUM CHLORIDE 0.9% 1,000 ML IV SCH (11:25)
[2019-12-07 12:04] LABS: BG BASE EXCESS 0.8 mmol/L (-2.0-2.0); BG CARBOXYHEMOGLOBIN 0.3 % (0.5-1.5); BG FRACTION INSPIRED OXYGEN 40; BG METHEMOGLOBIN 0.5 % (0.0-1.5); BG OXYHEMOGLOBIN 96.2 % (94.0-97.0); BG PCO2 44.1 mmHg (35.0-45.0); BG PH 7.388 (7.350-7.450); BG PO2 97.2 mmHg (75.0-100.0); BG PRESSURE SUPPORT 8; BG SAMPLE SITE RIGHT RADIAL; BG TOTAL HEMOGLOBIN 11.2 g/dL (12.0-18.0); BG VENT MODE VENT - CPAP
[2019-12-07] MEDS: LORAZEPAM 2MG/ML CPJ IV PRN (12:24)
[2019-12-08] VITALS (22 sets, daily range): BP systolic 127–161; BP diastolic 54–79
[2019-12-08] MEDS: IPRATROPIUM/ALBUTEROL 0.5-3(2.5)MG/3ML NEB HHN SCH ×7 (00:06→21:15)
[2019-12-08] MEDS: LORAZEPAM 2MG/ML CPJ IV PRN ×2 (00:22→17:12)
[2019-12-08] MEDS: DILTIAZEM HCL 90MG TABLET PO SCH ×5 (00:23→23:22)
[2019-12-08] MEDS: BLOOD SUGAR DIAGNOSTIC STRIP TEST SCH ×5 (00:23→23:21)
[2019-12-08] MEDS: SODIUM CHLORIDE 0.9% 1,000 ML IV SCH ×3 (00:24→22:11)
[2019-12-08] MEDS: ACETYLCYSTEINE 100MG/ML 10% VIAL 4ML INH SCH ×2 (00:33→16:31)
[2019-12-08] MEDS: INSULIN LISPRO 100 UNITS/ML SUBCUT SCH ×5 (06:00→23:21)
[2019-12-08 07:56] LABS: BASOPHILS % 1.3 % (0.0-2.0); EOSINOPHILS % 2.4 % (0.0-5.0); HEMATOCRIT. 30.8 % (42.0-52.0); HEMOGLOBIN. 10.4 g/dL (14.0-18.0); MEAN CORPUSCULAR HEMOGLOBIN 30.1 pg (28.0-32.0); MEAN CORPUSCULAR VOLUME 89.2 fL (80.0-94.0); MEAN PLATELET VOLUME 7.6 fl (7.4-10.4); MONOCYTES % 9.6 % (2.0-8.0); NEUTROPHILS % 72.7 % (40.0-76.0); PLATELET 216 x1000/uL (130-400); RED BLOOD CELL COUNT 3.45 mill/uL (4.7-6.1); RED CELL DISTRIBUTION WIDTH 14.8 % (11.6-14.6)
[2019-12-08 08:15] LABS: CHLORIDE 108 mEq/L (98-107)
[2019-12-08] MEDS: PANTOPRAZOLE SODIUM 40 MG/VIAL IV SCH (08:50)
[2019-12-08] MEDS: LEVETIRACETAM 500MG PREMIX 100 ML IV SCH ×2 (08:50→20:17)
[2019-12-08] MEDS: MIDODRINE HCL 5MG TABLET PO SCH (08:51)
[2019-12-08] MEDS: HEPARIN 5000 UNITS/ML VIAL SUBCUT SCH ×2 (08:51→20:53)
[2019-12-08 13:16] LABS: BG BASE EXCESS 5.1 mmol/L (-2.0-2.0); BG CARBOXYHEMOGLOBIN 0.3 % (0.5-1.5); BG DEOXYHEMOGLOBIN 5.6 % (0.0-5.0); BG FRACTION INSPIRED OXYGEN 40; BG HCO3 ACT 30.5 mmol/L (22.0-26.0); BG METHEMOGLOBIN 0.3 % (0.0-1.5); BG OXYGEN SATURATION 94.4 % (92.0-98.5); BG OXYHEMOGLOBIN 93.8 % (94.0-97.0); BG PCO2 49.3 mmHg (35.0-45.0); BG PO2 73.2 mmHg (75.0-100.0); BG PRESSURE SUPPORT 8; BG SAMPLE SITE RIGHT RADIAL; BG TOTAL HEMOGLOBIN 10.6 g/dL (12.0-18.0); BG VENT MODE VENT - CPAP
[2019-12-09] VITALS (60 sets, daily range): BP systolic 109–162; BP diastolic 51–88
[2019-12-09] MEDS: IPRATROPIUM/ALBUTEROL 0.5-3(2.5)MG/3ML NEB HHN SCH ×5 (00:33→21:14)
[2019-12-09] MEDS: CLONIDINE 0.1MG TABLET PO PRN ×2 (01:52→09:57)
[2019-12-09] MEDS: DILTIAZEM HCL 90MG TABLET PO SCH ×3 (05:16→18:41)
[2019-12-09] MEDS: BLOOD SUGAR DIAGNOSTIC STRIP TEST SCH ×3 (05:16→18:38)
[2019-12-09] MEDS: INSULIN LISPRO 100 UNITS/ML SUBCUT SCH ×3 (05:40→18:00)
[2019-12-09 06:09] LABS: CHLORIDE 105 mEq/L (98-107)
[2019-12-09 06:55] LABS: HEMATOCRIT. 34.1 % (42.0-52.0); HEMOGLOBIN. 11.6 g/dL (14.0-18.0); MEAN CORPUSCULAR HEMOGLOBIN 30.2 pg (28.0-32.0); RED BLOOD CELL COUNT 3.83 mill/uL (4.7-6.1); RED CELL DISTRIBUTION WIDTH 14.8 % (11.6-14.6)
[2019-12-09] MEDS: LEVETIRACETAM 500MG PREMIX 100 ML IV SCH ×2 (08:20→21:02)
[2019-12-09] MEDS: PANTOPRAZOLE SODIUM 40 MG/VIAL IV SCH (08:21)
[2019-12-09] MEDS: MIDODRINE HCL 5MG TABLET PO SCH (09:05)
[2019-12-09] MEDS: HEPARIN 5000 UNITS/ML VIAL SUBCUT SCH ×2 (09:07→21:02)
[2019-12-09 10:47] LABS: PLATELET ESTIMATE NORMAL
[2019-12-09] MEDS: SODIUM CHLORIDE 0.9% 1,000 ML IV SCH ×2 (12:27→21:02)
[2019-12-09] MEDS: LOSARTAN POTASSIUM 50 MG TABLET PO SCH (12:27)
[2019-12-09] MEDS: ACETYLCYSTEINE 100MG/ML 10% VIAL 4ML INH SCH ×2 (12:41→16:01)
[2019-12-10] VITALS (36 sets, daily range): BP systolic 135–179; BP diastolic 54–102
[2019-12-10] MEDS: BLOOD SUGAR DIAGNOSTIC STRIP TEST SCH ×5 (00:34→23:47)
[2019-12-10] MEDS: DILTIAZEM HCL 90MG TABLET PO SCH ×5 (00:37→23:48)
[2019-12-10] MEDS: ACETYLCYSTEINE 100MG/ML 10% VIAL 4ML INH SCH ×3 (00:48→15:59)
[2019-12-10] MEDS: IPRATROPIUM/ALBUTEROL 0.5-3(2.5)MG/3ML NEB HHN SCH ×6 (00:50→20:47)
[2019-12-10] MEDS: INSULIN LISPRO 100 UNITS/ML SUBCUT SCH ×5 (05:40→23:47)
[2019-12-10] MEDS: HEPARIN 5000 UNITS/ML VIAL SUBCUT SCH ×2 (08:13→20:35)
[2019-12-10] MEDS: LEVETIRACETAM 500MG PREMIX 100 ML IV SCH ×2 (08:13→20:33)
[2019-12-10] MEDS: PANTOPRAZOLE SODIUM 40 MG/VIAL IV SCH (08:13)
[2019-12-10] MEDS: LOSARTAN POTASSIUM 50 MG TABLET PO SCH (08:14)
[2019-12-10] MEDS: MIDODRINE HCL 5MG TABLET PO SCH (09:30)
[2019-12-10] MEDS: ACETAMINOPHEN 650MG/20.3ML UDC GT PRN (18:15)
[2019-12-10] MEDS: SODIUM CHLORIDE 0.9% 1,000 ML IV SCH ×3 (18:16→23:56)
[2019-12-11] VITALS (91 sets, daily range): BP systolic 119–216; BP diastolic 51–112
[2019-12-11] MEDS: CLONIDINE 0.1MG TABLET PO PRN ×2 (00:19→18:25)
[2019-12-11] MEDS: IPRATROPIUM/ALBUTEROL 0.5-3(2.5)MG/3ML NEB HHN SCH ×5 (00:48→20:56)
[2019-12-11] MEDS: ACETYLCYSTEINE 100MG/ML 10% VIAL 4ML INH SCH (00:48)
[2019-12-11] MEDS: DILTIAZEM HCL 90MG TABLET PO SCH ×4 (05:46→23:36)
[2019-12-11] MEDS: INSULIN LISPRO 100 UNITS/ML SUBCUT SCH ×4 (06:00→23:37)
[2019-12-11] MEDS: BLOOD SUGAR DIAGNOSTIC STRIP TEST SCH ×4 (06:36→23:35)
[2019-12-11 07:23] LABS: BASOPHILS % 0.7 % (0.0-2.0); EOSINOPHILS % 2.3 % (0.0-5.0); HEMATOCRIT. 33.8 % (42.0-52.0); HEMOGLOBIN. 11.2 g/dL (14.0-18.0); LYMPHOCYTES % 13.6 % (20.0-50.0); MEAN CORPUSCULAR HEMOGLOBIN 29.5 pg (28.0-32.0); MEAN PLATELET VOLUME 7.3 fl (7.4-10.4); MONOCYTES % 7.7 % (2.0-8.0); NEUTROPHILS % 75.7 % (40.0-76.0); PLATELET 337 x1000/uL (130-400); RED CELL DISTRIBUTION WIDTH 14.5 % (11.6-14.6)
[2019-12-11 07:57] LABS: CHLORIDE 105 mEq/L (98-107)
[2019-12-11] MEDS: LEVETIRACETAM 500MG PREMIX 100 ML IV SCH ×2 (10:31→20:48)
[2019-12-11] MEDS: LOSARTAN POTASSIUM 50 MG TABLET PO SCH (10:32)
[2019-12-11] MEDS: HEPARIN 5000 UNITS/ML VIAL SUBCUT SCH ×2 (10:32→21:02)
[2019-12-11] MEDS: PANTOPRAZOLE SODIUM 40 MG/VIAL IV SCH (10:32)
[2019-12-11] MEDS: SODIUM CHLORIDE 0.9% 1,000 ML IV SCH (14:33)
[2019-12-11] MEDS: LORAZEPAM 2MG/ML CPJ IV PRN (15:32)
[2019-12-11] MEDS: ACETAMINOPHEN 650MG/20.3ML UDC GT PRN (18:26)
[2019-12-11] MEDS ORDERED: NIFEDIPINE XL 30MG TAB PO SCH (18:30)
[2019-12-11] MEDS: HYDRALAZINE HCL 50MG TABLET PO SCH (22:07)
[2019-12-12] VITALS (74 sets, daily range): BP systolic 110–176; BP diastolic 39–88
[2019-12-12] MEDS: SODIUM CHLORIDE 0.9% 1,000 ML IV SCH ×2 (00:02→13:05)
[2019-12-12] MEDS: IPRATROPIUM/ALBUTEROL 0.5-3(2.5)MG/3ML NEB HHN SCH ×6 (00:32→21:00)
[2019-12-12] MEDS: ACETYLCYSTEINE 100MG/ML 10% VIAL 4ML INH SCH ×3 (00:32→21:00)
[2019-12-12] MEDS: BLOOD SUGAR DIAGNOSTIC STRIP TEST SCH ×4 (05:44→22:50)
[2019-12-12] MEDS: INSULIN LISPRO 100 UNITS/ML SUBCUT SCH ×4 (05:46→23:35)
[2019-12-12] MEDS: DILTIAZEM HCL 90MG TABLET PO SCH ×4 (05:48→23:35)
[2019-12-12] MEDS: HYDRALAZINE HCL 50MG TABLET PO SCH ×3 (05:48→23:29)
[2019-12-12 06:56] LABS: CHLORIDE 105 mEq/L (98-107)
[2019-12-12 07:40] LABS: BASOPHILS % 0.6 % (0.0-2.0); EOSINOPHILS % 1.6 % (0.0-5.0); HEMATOCRIT. 31.9 % (42.0-52.0); HEMOGLOBIN. 10.8 g/dL (14.0-18.0); LYMPHOCYTES % 13.9 % (20.0-50.0); MEAN CORPUSCULAR HEMOGLOBIN 30.1 pg (28.0-32.0); MEAN PLATELET VOLUME 7.4 fl (7.4-10.4); NEUTROPHILS % 74.9 % (40.0-76.0); PLATELET 349 x1000/uL (130-400); RED BLOOD CELL COUNT 3.58 mill/uL (4.7-6.1); RED CELL DISTRIBUTION WIDTH 14.6 % (11.6-14.6)
[2019-12-12] MEDS: LEVETIRACETAM 500MG PREMIX 100 ML IV SCH ×2 (08:46→21:09)
[2019-12-12] MEDS: LOSARTAN POTASSIUM 50 MG TABLET PO SCH (08:50)
[2019-12-12] MEDS: DOCUSATE SODIUM 100MG CAPSULE PO PRN (08:50)
[2019-12-12] MEDS: HEPARIN 5000 UNITS/ML VIAL SUBCUT SCH ×2 (08:50→21:11)
[2019-12-12] MEDS ORDERED: NIFEDIPINE 10MG CAPSULE PO SCH (09:00)
[2019-12-13] VITALS (10 sets, daily range): BP systolic 91–160; BP diastolic 32–118
[2019-12-13] MEDS: IPRATROPIUM/ALBUTEROL 0.5-3(2.5)MG/3ML NEB HHN SCH ×6 (00:32→20:49)
[2019-12-13] MEDS: CLONIDINE 0.1MG TABLET PO PRN (02:32)
[2019-12-13] MEDS: BLOOD SUGAR DIAGNOSTIC STRIP TEST SCH ×3 (05:05→18:42)
[2019-12-13] MEDS: HYDRALAZINE HCL 50MG TABLET PO SCH ×3 (05:05→21:21)
[2019-12-13] MEDS: DILTIAZEM HCL 90MG TABLET PO SCH ×3 (05:05→19:23)
[2019-12-13] MEDS: INSULIN LISPRO 100 UNITS/ML SUBCUT SCH ×3 (05:05→18:00)
[2019-12-13] MEDS: SODIUM CHLORIDE 0.9% 1,000 ML IV SCH ×3 (05:13→22:08)
[2019-12-13 06:44] LABS: BASOPHILS % 0.6 % (0.0-2.0); EOSINOPHILS % 3.1 % (0.0-5.0); HEMATOCRIT. 33.4 % (42.0-52.0); HEMOGLOBIN. 11.1 g/dL (14.0-18.0); LYMPHOCYTES % 19.2 % (20.0-50.0); MEAN CORPUSCULAR HEMOGLOBIN 29.7 pg (28.0-32.0); MEAN CORPUSCULAR VOLUME 89.6 fL (80.0-94.0); MEAN PLATELET VOLUME 7.6 fl (7.4-10.4); MONOCYTES % 10.8 % (2.0-8.0); NEUTROPHILS % 66.3 % (40.0-76.0); PLATELET 361 x1000/uL (130-400); RED BLOOD CELL COUNT 3.73 mill/uL (4.7-6.1); RED CELL DISTRIBUTION WIDTH 14.7 % (11.6-14.6)
[2019-12-13 08:07] LABS: CHLORIDE 105 mEq/L (98-107)
[2019-12-13] MEDS: ACETYLCYSTEINE 100MG/ML 10% VIAL 4ML INH SCH ×2 (08:48→16:01)
[2019-12-13] MEDS: LOSARTAN POTASSIUM 50 MG TABLET PO SCH (09:03)
[2019-12-13] MEDS: LEVETIRACETAM 500MG PREMIX 100 ML IV SCH ×2 (09:03→21:21)
[2019-12-13] MEDS: HEPARIN 5000 UNITS/ML VIAL SUBCUT SCH ×2 (09:04→21:22)
[2019-12-14] VITALS (11 sets, daily range): BP systolic 114–171; BP diastolic 43–90
[2019-12-14] MEDS: BLOOD SUGAR DIAGNOSTIC STRIP TEST SCH ×4 (00:30→18:11)
[2019-12-14] MEDS: DILTIAZEM HCL 90MG TABLET PO SCH ×4 (00:43→17:44)
[2019-12-14] MEDS: ACETYLCYSTEINE 100MG/ML 10% VIAL 4ML INH SCH (01:02)
[2019-12-14] MEDS: IPRATROPIUM/ALBUTEROL 0.5-3(2.5)MG/3ML NEB HHN SCH ×6 (01:02→21:12)
[2019-12-14] MEDS: CLONIDINE 0.1MG TABLET PO PRN (03:26)
[2019-12-14] MEDS: INSULIN LISPRO 100 UNITS/ML SUBCUT SCH ×5 (06:00→23:56)
[2019-12-14] MEDS: HYDRALAZINE HCL 50MG TABLET PO SCH ×3 (06:07→21:22)
[2019-12-14] MEDS: SODIUM CHLORIDE 0.9% 1,000 ML IV SCH ×2 (08:19→20:22)
[2019-12-14] MEDS: LOSARTAN POTASSIUM 50 MG TABLET PO SCH (08:19)
[2019-12-14] MEDS: LEVETIRACETAM 500MG PREMIX 100 ML IV SCH ×2 (08:20→21:21)
[2019-12-14] MEDS: HEPARIN 5000 UNITS/ML VIAL SUBCUT SCH ×2 (08:20→21:26)
[2019-12-14] MEDS: ACETAMINOPHEN 650MG/20.3ML UDC GT PRN ×2 (21:20→21:40)
[2019-12-14] MEDS: CEFEPIME 1,000 MG in DEXTROSE 5% WATER 50 ML IV SCH (22:00)
[2019-12-15] VITALS (10 sets, daily range): BP systolic 128–179; BP diastolic 53–107
[2019-12-15] MEDS: BLOOD SUGAR DIAGNOSTIC STRIP TEST SCH ×5 (00:14→23:45)
[2019-12-15] MEDS: DILTIAZEM HCL 90MG TABLET PO SCH ×5 (00:27→23:45)
[2019-12-15] MEDS: IPRATROPIUM/ALBUTEROL 0.5-3(2.5)MG/3ML NEB HHN SCH ×6 (00:51→20:30)
[2019-12-15] MEDS: HYDRALAZINE HCL 50MG TABLET PO SCH (05:18)
[2019-12-15] MEDS: INSULIN LISPRO 100 UNITS/ML SUBCUT SCH ×4 (05:26→23:45)
[2019-12-15] MEDS: SODIUM CHLORIDE 0.9% 1,000 ML IV SCH ×2 (07:56→19:02)
[2019-12-15] MEDS: LEVETIRACETAM 500MG PREMIX 100 ML IV SCH ×2 (08:00→22:18)
[2019-12-15] MEDS: LOSARTAN POTASSIUM 50 MG TABLET PO SCH (08:01)
[2019-12-15] MEDS: HEPARIN 5000 UNITS/ML VIAL SUBCUT SCH ×2 (08:01→22:19)
[2019-12-15] MEDS: CEFEPIME 1,000 MG in DEXTROSE 5% WATER 50 ML IV SCH ×2 (09:35→22:19)
[2019-12-15 10:16] LABS: BASOPHILS % 0.9 % (0.0-2.0); EOSINOPHILS % 0.8 % (0.0-5.0); HEMATOCRIT. 38.5 % (42.0-52.0); HEMOGLOBIN. 12.8 g/dL (14.0-18.0); LYMPHOCYTES % 9.5 % (20.0-50.0); MEAN CORPUSCULAR HEMOGLOBIN 29.6 pg (28.0-32.0); MEAN CORPUSCULAR VOLUME 89.1 fL (80.0-94.0); MEAN PLATELET VOLUME 7.2 fl (7.4-10.4); MONOCYTES % 7.6 % (2.0-8.0); NEUTROPHILS % 81.2 % (40.0-76.0); PLATELET 427 x1000/uL (130-400); RED BLOOD CELL COUNT 4.31 mill/uL (4.7-6.1); RED CELL DISTRIBUTION WIDTH 15.3 % (11.6-14.6)
[2019-12-15] MEDS: HYDRALAZINE HCL 100MG TABLET PO SCH ×2 (14:29→22:21)
[2019-12-16] VITALS (7 sets, daily range): BP systolic 120–180; BP diastolic 54–85
[2019-12-16] MEDS: IPRATROPIUM/ALBUTEROL 0.5-3(2.5)MG/3ML NEB HHN SCH ×5 (00:35→21:54)
[2019-12-16] MEDS: ACETAMINOPHEN 650MG/20.3ML UDC GT PRN (08:40)
[2019-12-16] MEDS: LEVETIRACETAM 500MG PREMIX 100 ML IV SCH ×2 (08:40→21:50)
[2019-12-16] MEDS: LOSARTAN POTASSIUM 50 MG TABLET PO SCH (08:41)
[2019-12-16] MEDS: ZINC SULFATE 220 MG ( 50 ) CAPSULE PO SCH (08:41)
[2019-12-16] MEDS: HEPARIN 5000 UNITS/ML VIAL SUBCUT SCH (08:41)
[2019-12-16] MEDS: ASCORBIC ACID 500 MG TABLET PO SCH (08:41)
[2019-12-16] MEDS: CEFEPIME 1,000 MG in DEXTROSE 5% WATER 50 ML IV SCH ×2 (10:38→21:50)
[2019-12-16] MEDS: INSULIN LISPRO 100 UNITS/ML SUBCUT SCH ×2 (11:45→18:00)
[2019-12-16] MEDS: BLOOD SUGAR DIAGNOSTIC STRIP TEST SCH ×3 (11:45→23:45)
[2019-12-16] MEDS: DILTIAZEM HCL 90MG TABLET PO SCH ×2 (12:00→18:00)
[2019-12-16] MEDS: HYDRALAZINE HCL 100MG TABLET PO SCH ×2 (14:40→21:56)
[2019-12-16] MEDS: SODIUM CHLORIDE 0.9% 1,000 ML IV SCH ×2 (16:50)
[2019-12-17] VITALS (8 sets, daily range): BP systolic 106–165; BP diastolic 54–84
[2019-12-17] MEDS: IPRATROPIUM/ALBUTEROL 0.5-3(2.5)MG/3ML NEB HHN SCH ×7 (00:10→23:48)
[2019-12-17] MEDS: HYDRALAZINE HCL 100MG TABLET PO SCH ×4 (05:21→21:38)
[2019-12-17] MEDS: BLOOD SUGAR DIAGNOSTIC STRIP TEST SCH ×4 (05:45→23:45)
[2019-12-17] MEDS: INSULIN LISPRO 100 UNITS/ML SUBCUT SCH ×4 (05:58→17:48)
[2019-12-17] MEDS: DILTIAZEM HCL 90MG TABLET PO SCH ×4 (06:12→17:59)
[2019-12-17] MEDS: SODIUM CHLORIDE 0.9% 1,000 ML IV SCH ×2 (06:15→15:04)
[2019-12-17] MEDS: CEFEPIME 1,000 MG in DEXTROSE 5% WATER 50 ML IV SCH ×2 (09:45→23:20)
[2019-12-17] MEDS: ZINC SULFATE 220 MG ( 50 ) CAPSULE PO SCH (09:45)
[2019-12-17] MEDS: LEVETIRACETAM 500MG PREMIX 100 ML IV SCH ×2 (09:45→21:39)
[2019-12-17] MEDS: LOSARTAN POTASSIUM 50 MG TABLET PO SCH (09:45)
[2019-12-17] MEDS: ASCORBIC ACID 500 MG TABLET PO SCH (09:45)
[2019-12-17 11:49] LABS: CHLORIDE 112 mEq/L (98-107)
[2019-12-17] MEDS ORDERED: FENTANYL CITRATE/PF 50MCG/ML 2ML VIAL ONE (15:36)
[2019-12-17] MEDS ORDERED: MIDAZOLAM HCL 5 MG/5 ML VIAL ONE (15:36)
[2019-12-17] MEDS ORDERED: MIDAZOLAM HCL 5 MG/5 ML VIAL IV PRN (15:36)
[2019-12-18] VITALS: BP 144/69
[2019-12-18] MEDS: DILTIAZEM HCL 90MG TABLET PO SCH ×5 (01:08→23:25)
[2019-12-18 02:00] VITALS: BP 149/76
[2019-12-18 04:00] VITALS: BP 157/74
[2019-12-18 06:00] VITALS: BP 168/96
[2019-12-18] MEDS: INSULIN LISPRO 100 UNITS/ML SUBCUT SCH ×5 (06:00→23:26)
[2019-12-18] MEDS: BLOOD SUGAR DIAGNOSTIC STRIP TEST SCH ×4 (06:38→23:25)
[2019-12-18] MEDS: HYDRALAZINE HCL 100MG TABLET PO SCH ×3 (06:39→21:59)
[2019-12-18] MEDS: SODIUM CHLORIDE 0.9% 1,000 ML IV SCH ×3 (06:40→20:00)
[2019-12-18] MEDS: IPRATROPIUM/ALBUTEROL 0.5-3(2.5)MG/3ML NEB HHN SCH ×4 (08:33→21:29)
[2019-12-18] MEDS: LEVETIRACETAM 500MG PREMIX 100 ML IV SCH ×2 (08:48→20:43)
[2019-12-18] MEDS: ASCORBIC ACID 500 MG TABLET PO SCH (08:48)
[2019-12-18] MEDS: ZINC SULFATE 220 MG ( 50 ) CAPSULE PO SCH (08:48)
[2019-12-18] MEDS: LOSARTAN POTASSIUM 50 MG TABLET PO SCH (08:48)
[2019-12-18] MEDS: CEFEPIME 1,000 MG in DEXTROSE 5% WATER 50 ML IV SCH ×2 (09:19→22:00)
[2019-12-18] MEDS: METOCLOPRAMIDE HCL 10MG/2ML VIAL IV SCH ×3 (11:45→23:25)
[2019-12-18] MEDS: DILTIAZEM HCL 5MG/ML 5ML VIAL IV PRN (11:45)
[2019-12-18 20:00] VITALS: BP 139/59
[2019-12-19] VITALS (7 sets, daily range): BP systolic 123–153; BP diastolic 50–105
[2019-12-19] MEDS: IPRATROPIUM/ALBUTEROL 0.5-3(2.5)MG/3ML NEB HHN SCH ×6 (00:44→21:10)
[2019-12-19] MEDS: BLOOD SUGAR DIAGNOSTIC STRIP TEST SCH ×3 (05:31→17:58)
[2019-12-19] MEDS: DILTIAZEM HCL 90MG TABLET PO SCH ×3 (05:36→17:58)
[2019-12-19] MEDS: INSULIN LISPRO 100 UNITS/ML SUBCUT SCH ×3 (05:37→18:00)
[2019-12-19] MEDS: METOCLOPRAMIDE HCL 10MG/2ML VIAL IV SCH ×3 (05:37→17:56)
[2019-12-19] MEDS: HYDRALAZINE HCL 100MG TABLET PO SCH ×3 (05:39→21:44)
[2019-12-19] MEDS: ASCORBIC ACID 500 MG TABLET PO SCH (08:57)
[2019-12-19] MEDS: LEVETIRACETAM 500MG PREMIX 100 ML IV SCH ×2 (08:57→20:11)
[2019-12-19] MEDS: ZINC SULFATE 220 MG ( 50 ) CAPSULE PO SCH (08:57)
[2019-12-19] MEDS: LOSARTAN POTASSIUM 100 MG TABLET PO SCH (09:07)
[2019-12-19] MEDS: CEFEPIME 1,000 MG in DEXTROSE 5% WATER 50 ML IV SCH ×2 (09:09→21:39)
[2019-12-19] MEDS: SODIUM CHLORIDE 0.9% 1,000 ML IV SCH (09:10)
[2019-12-19] MEDS: ENOXAPARIN 40MG/0.4ML SYR SUBCUT SCH (12:15)
[2019-12-19] MEDS: LORAZEPAM 2MG/ML CPJ IV PRN ×2 (13:10→20:11)
[2019-12-19] MEDS: DOCUSATE SODIUM 100MG CAPSULE PO PRN (18:25)
[2019-12-20] VITALS (7 sets, daily range): BP systolic 120–166; BP diastolic 54–80
[2019-12-20] MEDS: DILTIAZEM HCL 90MG TABLET PO SCH ×4 (00:10→17:45)
[2019-12-20] MEDS: METOCLOPRAMIDE HCL 10MG/2ML VIAL IV SCH ×4 (00:10→17:45)
[2019-12-20] MEDS: BLOOD SUGAR DIAGNOSTIC STRIP TEST SCH ×5 (00:11→23:45)
[2019-12-20] MEDS: SODIUM CHLORIDE 0.9% 1,000 ML IV SCH ×3 (00:11→22:00)
[2019-12-20] MEDS: IPRATROPIUM/ALBUTEROL 0.5-3(2.5)MG/3ML NEB HHN SCH ×6 (00:20→21:46)
[2019-12-20] MEDS: LORAZEPAM 2MG/ML CPJ IV PRN (04:01)
[2019-12-20] MEDS: HYDRALAZINE HCL 100MG TABLET PO SCH ×3 (05:55→22:00)
[2019-12-20] MEDS: INSULIN LISPRO 100 UNITS/ML SUBCUT SCH ×4 (06:00→17:25)
[2019-12-20 07:22] LABS: HEMATOCRIT. 33.1 % (42.0-52.0); HEMOGLOBIN. 11.1 g/dL (14.0-18.0); MEAN CORPUSCULAR HEMOGLOBIN 29.6 pg (28.0-32.0); MEAN CORPUSCULAR VOLUME 88.5 fL (80.0-94.0); MEAN PLATELET VOLUME 7.1 fl (7.4-10.4); PLATELET 329 x1000/uL (130-400); RED BLOOD CELL COUNT 3.74 mill/uL (4.7-6.1); RED CELL DISTRIBUTION WIDTH 15.3 % (11.6-14.6)
[2019-12-20 07:44] LABS: CHLORIDE 112 mEq/L (98-107)
[2019-12-20] MEDS: LOSARTAN POTASSIUM 100 MG TABLET PO SCH (08:54)
[2019-12-20] MEDS: ZINC SULFATE 220 MG ( 50 ) CAPSULE PO SCH (08:54)
[2019-12-20] MEDS: ASCORBIC ACID 500 MG TABLET PO SCH (08:54)
[2019-12-20] MEDS: LEVETIRACETAM 500MG PREMIX 100 ML IV SCH ×2 (08:55→22:00)
[2019-12-20] MEDS: ENOXAPARIN 40MG/0.4ML SYR SUBCUT SCH (08:55)
[2019-12-20 14:01] LABS: PLATELET ESTIMATE NORMAL
[2019-12-21] VITALS (7 sets, daily range): BP systolic 139–180; BP diastolic 69–91
[2019-12-21] MEDS: ACETAMINOPHEN 650MG/20.3ML UDC GT PRN (00:40)
[2019-12-21] MEDS: METOCLOPRAMIDE HCL 10MG/2ML VIAL IV SCH ×4 (00:41→17:54)
[2019-12-21] MEDS: DILTIAZEM HCL 90MG TABLET PO SCH ×3 (00:41→12:44)
[2019-12-21] MEDS: IPRATROPIUM/ALBUTEROL 0.5-3(2.5)MG/3ML NEB HHN SCH ×5 (01:18→15:46)
[2019-12-21] MEDS: BLOOD SUGAR DIAGNOSTIC STRIP TEST SCH ×4 (05:45→23:45)
[2019-12-21] MEDS: INSULIN LISPRO 100 UNITS/ML SUBCUT SCH ×4 (06:00→18:00)
[2019-12-21] MEDS: HYDRALAZINE HCL 100MG TABLET PO SCH ×3 (06:36→21:24)
[2019-12-21] MEDS: LEVETIRACETAM 500MG PREMIX 100 ML IV SCH ×2 (09:09→21:25)
[2019-12-21] MEDS: ENOXAPARIN 30MG/0.3ML SYR SUBCUT SCH ×2 (09:09→21:25)
[2019-12-21] MEDS: ZINC SULFATE 220 MG ( 50 ) CAPSULE PO SCH (09:10)
[2019-12-21] MEDS: LOSARTAN POTASSIUM 100 MG TABLET PO SCH (09:10)
[2019-12-21] MEDS: SODIUM CHLORIDE 0.9% 1,000 ML IV SCH ×2 (09:10→21:31)
[2019-12-21] MEDS: ASCORBIC ACID 500 MG TABLET PO SCH (09:10)
[2019-12-21] MEDS: DILTIAZEM HCL 60MG TABLET PO SCH (17:54)
[2019-12-22] VITALS (8 sets, daily range): BP systolic 117–146; BP diastolic 53–93
[2019-12-22] MEDS: IPRATROPIUM/ALBUTEROL 0.5-3(2.5)MG/3ML NEB HHN SCH ×5 (00:08→16:13)
[2019-12-22] MEDS: METOCLOPRAMIDE HCL 10MG/2ML VIAL IV SCH ×5 (00:33→23:55)
[2019-12-22] MEDS: DILTIAZEM HCL 60MG TABLET PO SCH ×5 (00:33→23:55)
[2019-12-22] MEDS: HYDRALAZINE HCL 100MG TABLET PO SCH ×3 (05:43→21:05)
[2019-12-22] MEDS: BLOOD SUGAR DIAGNOSTIC STRIP TEST SCH ×4 (05:44→23:54)
[2019-12-22] MEDS: INSULIN LISPRO 100 UNITS/ML SUBCUT SCH ×5 (05:57→23:55)
[2019-12-22] MEDS: SODIUM CHLORIDE 0.9% 1,000 ML IV SCH ×2 (07:21→17:41)
[2019-12-22] MEDS: LEVETIRACETAM 500MG PREMIX 100 ML IV SCH ×2 (09:00→20:57)
[2019-12-22] MEDS: ZINC SULFATE 220 MG ( 50 ) CAPSULE PO SCH (09:01)
[2019-12-22] MEDS: ENOXAPARIN 30MG/0.3ML SYR SUBCUT SCH ×2 (09:01→20:57)
[2019-12-22] MEDS: ASCORBIC ACID 500 MG TABLET PO SCH (09:01)
[2019-12-22] MEDS: LOSARTAN POTASSIUM 100 MG TABLET PO SCH (09:01)
[2019-12-22 15:54] LABS: CLARITY URINE CLOUDY (CLEAR); COLOR URINE YELLOW (YELLOW); KETONES URINE NEGATIVE (NEGATIVE); LEUKOCYTE ESTERASE URINE NEGATIVE (NEGATIVE); NITRITE URINE NEGATIVE (NEGATIVE); OCCULT BLOOD URINE NEGATIVE (NEGATIVE); PROTEIN URINE TRACE (NEGATIVE); SPECIFIC GRAVITY URINE 1.015 (1.005-1.030); UROBILINOGEN URINE 0.2 E.U./dL (0.2-1.0)
[2019-12-23] VITALS (7 sets, daily range): BP systolic 125–158; BP diastolic 55–83
[2019-12-23] MEDS: SODIUM CHLORIDE 0.9% 1,000 ML IV SCH ×2 (05:30→16:30)
[2019-12-23] MEDS: METOCLOPRAMIDE HCL 10MG/2ML VIAL IV SCH ×3 (05:34→17:21)
[2019-12-23] MEDS: HYDRALAZINE HCL 100MG TABLET PO SCH ×3 (05:34→23:05)
[2019-12-23] MEDS: DILTIAZEM HCL 60MG TABLET PO SCH ×3 (05:34→17:22)
[2019-12-23] MEDS: INSULIN LISPRO 100 UNITS/ML SUBCUT SCH ×3 (06:00→17:21)
[2019-12-23] MEDS: BLOOD SUGAR DIAGNOSTIC STRIP TEST SCH ×4 (06:10→23:05)
[2019-12-23] MEDS: ENOXAPARIN 30MG/0.3ML SYR SUBCUT SCH ×2 (08:34→23:04)
[2019-12-23] MEDS: ASCORBIC ACID 500 MG TABLET PO SCH (08:34)
[2019-12-23] MEDS: LOSARTAN POTASSIUM 100 MG TABLET PO SCH (08:34)
[2019-12-23] MEDS: ZINC SULFATE 220 MG ( 50 ) CAPSULE PO SCH (08:34)
[2019-12-23] MEDS: LEVETIRACETAM 500MG PREMIX 100 ML IV SCH ×2 (08:35→23:03)
[2019-12-23] MEDS: IPRATROPIUM/ALBUTEROL 0.5-3(2.5)MG/3ML NEB HHN SCH ×4 (09:31→20:48)
[2019-12-23] MEDS: DOXAZOSIN MESYLATE 2MG TABLET PO SCH (23:04)
[2019-12-24] VITALS: BP 143/64
[2019-12-24] MEDS: IPRATROPIUM/ALBUTEROL 0.5-3(2.5)MG/3ML NEB HHN SCH ×6 (00:03→20:39)
[2019-12-24] MEDS: LORAZEPAM 2MG/ML CPJ IV PRN (01:27)
[2019-12-24] MEDS: METOCLOPRAMIDE HCL 10MG/2ML VIAL IV SCH ×5 (01:28→23:39)
[2019-12-24 04:00] VITALS: BP 137/66
[2019-12-24] MEDS: SODIUM CHLORIDE 0.9% 1,000 ML IV SCH ×2 (04:52→12:22)
[2019-12-24] MEDS: DILTIAZEM HCL 60MG TABLET PO SCH ×5 (05:13→23:40)
[2019-12-24] MEDS: BLOOD SUGAR DIAGNOSTIC STRIP TEST SCH ×4 (05:14→23:39)
[2019-12-24] MEDS: HYDRALAZINE HCL 100MG TABLET PO SCH ×3 (06:00→21:31)
[2019-12-24] MEDS: INSULIN LISPRO 100 UNITS/ML SUBCUT SCH ×5 (06:00→23:40)
[2019-12-24 06:48] LABS: BASOPHILS % 0.5 % (0.0-2.0); EOSINOPHILS % 1.6 % (0.0-5.0); HEMATOCRIT. 29.9 % (42.0-52.0); LYMPHOCYTES % 12.4 % (20.0-50.0); MEAN CORPUSCULAR HEMOGLOBIN 29.5 pg (28.0-32.0); MEAN CORPUSCULAR VOLUME 88.4 fL (80.0-94.0); MEAN PLATELET VOLUME 6.9 fl (7.4-10.4); NEUTROPHILS % 74.5 % (40.0-76.0); PLATELET 242 x1000/uL (130-400); RED BLOOD CELL COUNT 3.38 mill/uL (4.7-6.1); RED CELL DISTRIBUTION WIDTH 15.2 % (11.6-14.6)
[2019-12-24 07:57] LABS: CHLORIDE 114 mEq/L (98-107)
[2019-12-24 08:00] VITALS: BP 148/79
[2019-12-24] MEDS: ASCORBIC ACID 500 MG TABLET PO SCH (08:51)
[2019-12-24] MEDS: ENOXAPARIN 30MG/0.3ML SYR SUBCUT SCH ×2 (08:51→20:44)
[2019-12-24] MEDS: LOSARTAN POTASSIUM 100 MG TABLET PO SCH (08:51)
[2019-12-24] MEDS: ZINC SULFATE 220 MG ( 50 ) CAPSULE PO SCH (08:51)
[2019-12-24] MEDS: LEVETIRACETAM 500MG PREMIX 100 ML IV SCH ×2 (08:52→20:43)
[2019-12-24 11:53] VITALS: BP 147/70
[2019-12-24 16:00] VITALS: BP 140/59
[2019-12-24 20:00] VITALS: BP 135/54
[2019-12-24] MEDS: DOXAZOSIN MESYLATE 2MG TABLET PO SCH (20:43)
[2019-12-25] VITALS (8 sets, daily range): BP systolic 133–156; BP diastolic 59–81
[2019-12-25] MEDS: IPRATROPIUM/ALBUTEROL 0.5-3(2.5)MG/3ML NEB HHN SCH ×6 (00:42→20:53)
[2019-12-25] MEDS: BLOOD SUGAR DIAGNOSTIC STRIP TEST SCH ×3 (05:24→17:45)
[2019-12-25] MEDS: METOCLOPRAMIDE HCL 10MG/2ML VIAL IV SCH ×3 (05:24→17:50)
[2019-12-25] MEDS: INSULIN LISPRO 100 UNITS/ML SUBCUT SCH ×3 (05:25→18:00)
[2019-12-25] MEDS: HYDRALAZINE HCL 100MG TABLET PO SCH ×3 (05:25→21:58)
[2019-12-25] MEDS: DILTIAZEM HCL 60MG TABLET PO SCH ×3 (05:25→17:49)
[2019-12-25] MEDS: ENOXAPARIN 30MG/0.3ML SYR SUBCUT SCH ×2 (09:30→21:59)
[2019-12-25] MEDS: ASCORBIC ACID 500 MG TABLET PO SCH (09:30)
[2019-12-25] MEDS: LEVETIRACETAM 500MG PREMIX 100 ML IV SCH ×2 (09:30→21:59)
[2019-12-25] MEDS: ZINC SULFATE 220 MG ( 50 ) CAPSULE PO SCH (09:30)
[2019-12-25] MEDS: LOSARTAN POTASSIUM 100 MG TABLET PO SCH (09:30)
[2019-12-25] MEDS: SODIUM CHLORIDE 0.9% 1,000 ML IV SCH (19:40)
[2019-12-25] MEDS: DOXAZOSIN MESYLATE 2MG TABLET PO SCH (21:58)
[2019-12-26] VITALS: BP 155/63
[2019-12-26] MEDS: METOCLOPRAMIDE HCL 10MG/2ML VIAL IV SCH ×5 (00:24→23:28)
[2019-12-26] MEDS: DILTIAZEM HCL 60MG TABLET PO SCH ×5 (00:25→23:29)
[2019-12-26] MEDS: BLOOD SUGAR DIAGNOSTIC STRIP TEST SCH ×5 (00:25→23:29)
[2019-12-26] MEDS: IPRATROPIUM/ALBUTEROL 0.5-3(2.5)MG/3ML NEB HHN SCH ×6 (01:00→21:57)
[2019-12-26 04:00] VITALS: BP 151/74
[2019-12-26] MEDS: INSULIN LISPRO 100 UNITS/ML SUBCUT SCH ×5 (06:00→23:29)
[2019-12-26] MEDS: HYDRALAZINE HCL 100MG TABLET PO SCH ×3 (06:20→21:06)
[2019-12-26 08:00] VITALS: BP 119/50
[2019-12-26] MEDS: ENOXAPARIN 30MG/0.3ML SYR SUBCUT SCH ×2 (08:58→21:06)
[2019-12-26] MEDS: LOSARTAN POTASSIUM 100 MG TABLET PO SCH (08:58)
[2019-12-26] MEDS: LEVETIRACETAM 500MG PREMIX 100 ML IV SCH ×2 (08:58→21:09)
[2019-12-26] MEDS: ZINC SULFATE 220 MG ( 50 ) CAPSULE PO SCH (08:58)
[2019-12-26] MEDS: ASCORBIC ACID 500 MG TABLET PO SCH (08:58)
[2019-12-26] MEDS: ACETAMINOPHEN 650MG/20.3ML UDC GT PRN (08:59)
[2019-12-26] MEDS: SODIUM CHLORIDE 0.9% 1,000 ML IV SCH ×2 (08:59→21:09)
[2019-12-26 12:00] VITALS: BP 111/58
[2019-12-26 16:00] VITALS: BP 129/52
[2019-12-26 20:00] VITALS: BP 114/50
[2019-12-26] MEDS: DOXAZOSIN MESYLATE 2MG TABLET PO SCH (21:07)
[2019-12-27] VITALS (10 sets, daily range): BP systolic 114–150; BP diastolic 45–73
[2019-12-27] MEDS: IPRATROPIUM/ALBUTEROL 0.5-3(2.5)MG/3ML NEB HHN SCH ×6 (01:05→20:06)
[2019-12-27] MEDS: DILTIAZEM HCL 60MG TABLET PO SCH ×4 (05:45→23:00)
[2019-12-27] MEDS: HYDRALAZINE HCL 100MG TABLET PO SCH ×3 (05:46→20:58)
[2019-12-27] MEDS: INSULIN LISPRO 100 UNITS/ML SUBCUT SCH ×4 (05:46→23:00)
[2019-12-27] MEDS: METOCLOPRAMIDE HCL 10MG/2ML VIAL IV SCH ×4 (05:46→22:59)
[2019-12-27] MEDS: BLOOD SUGAR DIAGNOSTIC STRIP TEST SCH ×4 (05:46→23:00)
[2019-12-27 06:40] LABS: BASOPHILS % 0.3 % (0.0-2.0); EOSINOPHILS % 1.5 % (0.0-5.0); HEMATOCRIT. 28.8 % (42.0-52.0); HEMOGLOBIN. 9.7 g/dL (14.0-18.0); LYMPHOCYTES % 9.8 % (20.0-50.0); MEAN CORPUSCULAR HEMOGLOBIN 29.8 pg (28.0-32.0); MEAN CORPUSCULAR VOLUME 88.3 fL (80.0-94.0); MEAN PLATELET VOLUME 7.4 fl (7.4-10.4); NEUTROPHILS % 80.4 % (40.0-76.0); PLATELET 205 x1000/uL (130-400); RED BLOOD CELL COUNT 3.27 mill/uL (4.7-6.1); RED CELL DISTRIBUTION WIDTH 15.6 % (11.6-14.6)
[2019-12-27] MEDS: ZINC SULFATE 220 MG ( 50 ) CAPSULE PO SCH (08:40)
[2019-12-27] MEDS: ENOXAPARIN 30MG/0.3ML SYR SUBCUT SCH ×2 (08:40→20:57)
[2019-12-27] MEDS: ASCORBIC ACID 500 MG TABLET PO SCH (08:40)
[2019-12-27] MEDS: LEVETIRACETAM 500MG PREMIX 100 ML IV SCH ×2 (08:40→20:57)
[2019-12-27] MEDS: LOSARTAN POTASSIUM 100 MG TABLET PO SCH (08:41)
[2019-12-27] MEDS: SODIUM CHLORIDE 0.9% 1,000 ML IV SCH ×2 (08:44→20:58)
[2019-12-27] MEDS: DOXAZOSIN MESYLATE 2MG TABLET PO SCH (20:58)
[2019-12-27] MEDS: DILTIAZEM HCL 5MG/ML 5ML VIAL IV PRN (21:15)
[2019-12-28] VITALS (9 sets, daily range): BP systolic 110–131; BP diastolic 48–62
[2019-12-28] MEDS: IPRATROPIUM/ALBUTEROL 0.5-3(2.5)MG/3ML NEB HHN SCH ×6 (00:27→22:06)
[2019-12-28] MEDS: INSULIN LISPRO 100 UNITS/ML SUBCUT SCH ×4 (06:00→23:57)
[2019-12-28] MEDS: DILTIAZEM HCL 60MG TABLET PO SCH ×4 (06:07→23:57)
[2019-12-28] MEDS: HYDRALAZINE HCL 100MG TABLET PO SCH ×3 (06:07→21:28)
[2019-12-28] MEDS: METOCLOPRAMIDE HCL 10MG/2ML VIAL IV SCH ×4 (06:07→23:51)
[2019-12-28] MEDS: BLOOD SUGAR DIAGNOSTIC STRIP TEST SCH ×2 (06:08→12:33)
[2019-12-28 07:03] LABS: BASOPHILS % 0.2 % (0.0-2.0); EOSINOPHILS % 1.4 % (0.0-5.0); HEMATOCRIT. 29.4 % (42.0-52.0); HEMOGLOBIN. 9.9 g/dL (14.0-18.0); LYMPHOCYTES % 8.7 % (20.0-50.0); MEAN CORPUSCULAR HEMOGLOBIN 29.6 pg (28.0-32.0); MEAN CORPUSCULAR VOLUME 87.9 fL (80.0-94.0); MEAN PLATELET VOLUME 7.4 fl (7.4-10.4); MONOCYTES % 10.2 % (2.0-8.0); NEUTROPHILS % 79.5 % (40.0-76.0); PLATELET 200 x1000/uL (130-400); RED BLOOD CELL COUNT 3.34 mill/uL (4.7-6.1); RED CELL DISTRIBUTION WIDTH 15.1 % (11.6-14.6)
[2019-12-28] MEDS: SODIUM CHLORIDE 0.9% 1,000 ML IV SCH (08:00)
[2019-12-28] MEDS: ENOXAPARIN 30MG/0.3ML SYR SUBCUT SCH ×2 (08:19→21:29)
[2019-12-28] MEDS: LOSARTAN POTASSIUM 100 MG TABLET PO SCH (08:19)
[2019-12-28] MEDS: ZINC SULFATE 220 MG ( 50 ) CAPSULE PO SCH (08:19)
[2019-12-28] MEDS: LEVETIRACETAM 500MG PREMIX 100 ML IV SCH (08:19)
[2019-12-28] MEDS: ASCORBIC ACID 500 MG TABLET PO SCH (09:00)
[2019-12-28] MEDS: DOXAZOSIN MESYLATE 2MG TABLET PO SCH (21:29)
[2019-12-28] MEDS: IPRATROPIUM BROMIDE (0.02%) 0.5MG/2.5ML NEB HHN PRN (22:08)
[2019-12-29] VITALS (10 sets, daily range): BP systolic 99–139; BP diastolic 46–73
[2019-12-29] MEDS: DILTIAZEM HCL 60MG TABLET PO SCH ×3 (05:20→17:43)
[2019-12-29] MEDS: HYDRALAZINE HCL 100MG TABLET PO SCH ×3 (05:20→21:08)
[2019-12-29] MEDS: METOCLOPRAMIDE HCL 10MG/2ML VIAL IV SCH ×3 (05:20→17:42)
[2019-12-29] MEDS: INSULIN LISPRO 100 UNITS/ML SUBCUT SCH ×3 (05:21→17:43)
[2019-12-29] MEDS: LOSARTAN POTASSIUM 100 MG TABLET PO SCH (09:00)
[2019-12-29] MEDS: ENOXAPARIN 30MG/0.3ML SYR SUBCUT SCH ×2 (09:00→21:08)
[2019-12-29] MEDS: ZINC SULFATE 220 MG ( 50 ) CAPSULE PO SCH (09:00)
[2019-12-29] MEDS: ASCORBIC ACID 500 MG TABLET PO SCH (09:00)
[2019-12-29] MEDS: LEVETIRACETAM 500MG/5ML CUP PO SCH (21:07)
[2019-12-29] MEDS: DOXAZOSIN MESYLATE 2MG TABLET PO SCH (21:08)
[2019-12-30] VITALS (8 sets, daily range): BP systolic 116–144; BP diastolic 57–84
[2019-12-30] MEDS: INSULIN LISPRO 100 UNITS/ML SUBCUT SCH
[2019-12-30] MEDS: METOCLOPRAMIDE HCL 10MG/2ML VIAL IV SCH ×4 (00:39→18:00)
[2019-12-30] MEDS: DILTIAZEM HCL 60MG TABLET PO SCH ×4 (00:39→18:00)
[2019-12-30] MEDS: HYDRALAZINE HCL 100MG TABLET PO SCH ×3 (06:20→21:26)
[2019-12-30] MEDS: LEVETIRACETAM 500MG/5ML CUP PO SCH ×2 (08:30→21:25)
[2019-12-30] MEDS: LOSARTAN POTASSIUM 100 MG TABLET PO SCH (08:30)
[2019-12-30] MEDS: ENOXAPARIN 30MG/0.3ML SYR SUBCUT SCH ×2 (08:31→21:25)
[2019-12-30] MEDS: DOXAZOSIN MESYLATE 2MG TABLET PO SCH (21:26)
[2019-12-31] VITALS (7 sets, daily range): BP systolic 110–142; BP diastolic 47–86
[2019-12-31] MEDS: METOCLOPRAMIDE HCL 10MG/2ML VIAL IV SCH ×4 (00:17→17:41)
[2019-12-31] MEDS: DILTIAZEM HCL 60MG TABLET PO SCH ×4 (00:17→17:40)
[2019-12-31] MEDS: DOXAZOSIN MESYLATE 2MG TABLET PO SCH (06:23)
[2019-12-31] MEDS: HYDRALAZINE HCL 100MG TABLET PO SCH ×3 (06:24→21:45)
[2019-12-31] MEDS: ENOXAPARIN 30MG/0.3ML SYR SUBCUT SCH ×2 (08:56→21:52)
[2019-12-31] MEDS: LEVETIRACETAM 500MG/5ML CUP PO SCH ×2 (08:56→21:45)
[2019-12-31] MEDS: LOSARTAN POTASSIUM 100 MG TABLET PO SCH (08:56)
[2020-01-01] VITALS (8 sets, daily range): BP systolic 123–158; BP diastolic 50–70
[2020-01-01] MEDS: DILTIAZEM HCL 60MG TABLET PO SCH ×3 (00:33→12:11)
[2020-01-01] MEDS: HYDRALAZINE HCL 100MG TABLET PO SCH ×3 (05:31→21:15)
[2020-01-01 07:11] LABS: BASOPHILS % 0.5 % (0.0-2.0); EOSINOPHILS % 2.5 % (0.0-5.0); HEMATOCRIT. 30.2 % (42.0-52.0); HEMOGLOBIN. 10.1 g/dL (14.0-18.0); LYMPHOCYTES % 21.1 % (20.0-50.0); MEAN CORPUSCULAR HEMOGLOBIN 29.3 pg (28.0-32.0); MEAN CORPUSCULAR VOLUME 88.1 fL (80.0-94.0); MEAN PLATELET VOLUME 7.5 fl (7.4-10.4); MONOCYTES % 13.2 % (2.0-8.0); NEUTROPHILS % 62.7 % (40.0-76.0); PLATELET 201 x1000/uL (130-400); RED BLOOD CELL COUNT 3.43 mill/uL (4.7-6.1); RED CELL DISTRIBUTION WIDTH 14.9 % (11.6-14.6)
[2020-01-01 08:02] LABS: CHLORIDE 116 mEq/L (98-107)
[2020-01-01] MEDS: LOSARTAN POTASSIUM 100 MG TABLET PO SCH (08:39)
[2020-01-01] MEDS: ENOXAPARIN 30MG/0.3ML SYR SUBCUT SCH ×2 (08:39→21:14)
[2020-01-01] MEDS: LEVETIRACETAM 500MG/5ML CUP PO SCH ×2 (08:39→20:45)
[2020-01-01] MEDS: DOXAZOSIN MESYLATE 2MG TABLET PO SCH (20:45)
[2020-01-02] VITALS (9 sets, daily range): BP systolic 120–170; BP diastolic 64–84
[2020-01-02] MEDS: HYDRALAZINE HCL 100MG TABLET PO SCH ×3 (05:46→21:58)
[2020-01-02] MEDS: LOSARTAN POTASSIUM 100 MG TABLET PO SCH (09:09)
[2020-01-02] MEDS: LEVETIRACETAM 500MG/5ML CUP PO SCH ×2 (09:09→21:58)
[2020-01-02] MEDS: ENOXAPARIN 30MG/0.3ML SYR SUBCUT SCH ×2 (09:10→21:58)
[2020-01-02] MEDS: DOXAZOSIN MESYLATE 2MG TABLET PO SCH (21:59)
[2020-01-03] VITALS (9 sets, daily range): BP systolic 119–152; BP diastolic 62–78
[2020-01-03] MEDS: HYDRALAZINE HCL 100MG TABLET PO SCH ×3 (05:37→21:02)
[2020-01-03] MEDS: LOSARTAN POTASSIUM 100 MG TABLET PO SCH (09:07)
[2020-01-03] MEDS: LEVETIRACETAM 500MG/5ML CUP PO SCH ×2 (09:07→20:56)
[2020-01-03] MEDS: ENOXAPARIN 30MG/0.3ML SYR SUBCUT SCH ×2 (09:08→20:56)
[2020-01-03] MEDS: DOXAZOSIN MESYLATE 2MG TABLET PO SCH (20:57)
[2020-01-04] VITALS (7 sets, daily range): BP systolic 99–134; BP diastolic 53–70
[2020-01-04] MEDS: HYDRALAZINE HCL 100MG TABLET PO SCH ×3 (05:55→21:21)
[2020-01-04] MEDS: LEVETIRACETAM 500MG/5ML CUP PO SCH ×2 (08:08→21:20)
[2020-01-04] MEDS: LOSARTAN POTASSIUM 100 MG TABLET PO SCH (08:09)
[2020-01-04] MEDS: ENOXAPARIN 30MG/0.3ML SYR SUBCUT SCH ×2 (08:14→21:21)
[2020-01-04] MEDS: HYDROCODONE/ACETAMINOPHEN 5/325MG TABLET PO PRN (15:31)
[2020-01-04] MEDS: DOXAZOSIN MESYLATE 2MG TABLET PO SCH (21:22)
[2020-01-05] VITALS: BP 101/79
[2020-01-05 04:00] VITALS: BP 111/37
[2020-01-05] MEDS: HYDRALAZINE HCL 100MG TABLET PO SCH ×3 (06:17→21:03)
[2020-01-05 08:20] VITALS: BP 139/48
[2020-01-05] MEDS: LOSARTAN POTASSIUM 100 MG TABLET PO SCH (09:00)
[2020-01-05] MEDS: LEVETIRACETAM 500MG/5ML CUP PO SCH ×2 (10:48→20:57)
[2020-01-05] MEDS: HYDROCODONE/ACETAMINOPHEN 5/325MG TABLET PO PRN (10:48)
[2020-01-05] MEDS: ENOXAPARIN 30MG/0.3ML SYR SUBCUT SCH ×2 (10:54→20:58)
[2020-01-05 12:00] VITALS: BP 118/54
[2020-01-05 16:00] VITALS: BP 140/92
[2020-01-05 20:00] VITALS: BP 123/54
[2020-01-05] MEDS: DOXAZOSIN MESYLATE 2MG TABLET PO SCH (20:57)
[2020-01-06] VITALS (7 sets, daily range): BP systolic 105–134; BP diastolic 59–71
[2020-01-06] MEDS: HYDRALAZINE HCL 100MG TABLET PO SCH ×3 (05:41→21:07)
[2020-01-06] MEDS: ENOXAPARIN 30MG/0.3ML SYR SUBCUT SCH ×2 (08:54→21:16)
[2020-01-06] MEDS: LEVETIRACETAM 500MG/5ML CUP PO SCH ×2 (08:54→21:07)
[2020-01-06] MEDS: LOSARTAN POTASSIUM 100 MG TABLET PO SCH (08:54)
[2020-01-06] MEDS: DOXAZOSIN MESYLATE 2MG TABLET PO SCH (21:07)
[2020-01-07] VITALS (7 sets, daily range): BP systolic 90–145; BP diastolic 46–72
[2020-01-07] MEDS: HYDRALAZINE HCL 100MG TABLET PO SCH ×3 (05:51→22:00)
[2020-01-07] MEDS: HYDROCODONE/ACETAMINOPHEN 5/325MG TABLET PO PRN (07:48)
[2020-01-07] MEDS: LOSARTAN POTASSIUM 100 MG TABLET PO SCH (08:00)
[2020-01-07] MEDS: LEVETIRACETAM 500MG/5ML CUP PO SCH ×2 (08:00→22:16)
[2020-01-07] MEDS: ENOXAPARIN 30MG/0.3ML SYR SUBCUT SCH ×2 (08:01→22:17)
[2020-01-07] MEDS: ONDANSETRON HCL 4MG/2ML INJ IV PRN ×2 (09:09→16:09)
[2020-01-07] MEDS ORDERED: SORBITOL 70% SOLN 30ML PO NR (12:00)
[2020-01-07] MEDS: METOCLOPRAMIDE HCL 10MG/2ML VIAL IV SCH ×2 (12:07→18:18)
[2020-01-07] MEDS: DOXAZOSIN MESYLATE 2MG TABLET PO SCH (21:00)
[2020-01-08] VITALS (9 sets, daily range): BP systolic 103–154; BP diastolic 54–66
[2020-01-08] MEDS: METOCLOPRAMIDE HCL 10MG/2ML VIAL IV SCH ×2 (00:34→06:28)
[2020-01-08 06:26] LABS: HEMATOCRIT 32.9 % (42.0-52.0); HEMOGLOBIN 10.8 g/dL (14.0-18.0); MEAN CORPUSCULAR HEMOGLOBIN 28.7 pg (28.0-32.0); MEAN CORPUSCULAR VOLUME 87.8 fL (80.0-94.0); PLATELET 214 x1000/uL (130-400); RED BLOOD CELL COUNT 3.75 mill/uL (4.7-6.1)
[2020-01-08] MEDS: HYDRALAZINE HCL 100MG TABLET PO SCH ×3 (06:29→22:51)
[2020-01-08 06:33] LABS: CHLORIDE 107 mEq/L (98-107)
[2020-01-08] MEDS: LOSARTAN POTASSIUM 100 MG TABLET PO SCH (09:00)
[2020-01-08] MEDS: DOCUSATE SODIUM SUGAR FREE 100MG/10ML UDC NG SCH (09:28)
[2020-01-08] MEDS: ENOXAPARIN 30MG/0.3ML SYR SUBCUT SCH ×2 (09:29→20:50)
[2020-01-08] MEDS: LEVETIRACETAM 500MG/5ML CUP PO SCH ×2 (09:30→20:49)
[2020-01-08] MEDS: DOXAZOSIN MESYLATE 2MG TABLET PO SCH (20:50)
[2020-01-09] VITALS: BP 112/53
[2020-01-09 04:00] VITALS: BP 125/81
[2020-01-09 08:00] VITALS: BP 129/64
[2020-01-09] MEDS: DOCUSATE SODIUM SUGAR FREE 100MG/10ML UDC NG SCH (09:05)
[2020-01-09] MEDS: LOSARTAN POTASSIUM 100 MG TABLET PO SCH (09:05)
[2020-01-09] MEDS: LEVETIRACETAM 500MG/5ML CUP PO SCH ×2 (09:05→21:26)
[2020-01-09] MEDS: ENOXAPARIN 30MG/0.3ML SYR SUBCUT SCH ×2 (09:06→21:27)
[2020-01-09 12:00] VITALS: BP 111/61
[2020-01-09] MEDS: HYDRALAZINE HCL 100MG TABLET PO SCH ×2 (15:30→21:26)
[2020-01-09 16:00] VITALS: BP 110/60
[2020-01-09 20:00] VITALS: BP 132/68
[2020-01-09] MEDS: DOXAZOSIN MESYLATE 2MG TABLET PO SCH (21:26)
[2020-01-10] VITALS (8 sets, daily range): BP systolic 100–128; BP diastolic 50–68
[2020-01-10] MEDS: HYDRALAZINE HCL 100MG TABLET PO SCH ×3 (06:03→21:34)
[2020-01-10] MEDS: DOCUSATE SODIUM SUGAR FREE 100MG/10ML UDC NG SCH (09:00)
[2020-01-10] MEDS: ONDANSETRON HCL 4MG/2ML INJ IV PRN (10:00)
[2020-01-10] MEDS: LOSARTAN POTASSIUM 100 MG TABLET PO SCH (11:27)
[2020-01-10] MEDS: ENOXAPARIN 30MG/0.3ML SYR SUBCUT SCH ×2 (11:27→21:34)
[2020-01-10] MEDS: LEVETIRACETAM 500MG/5ML CUP PO SCH ×2 (11:27→21:33)
[2020-01-10] MEDS ORDERED: METOCLOPRAMIDE HCL 5MG TABLET PO PRN (14:45)
[2020-01-10] MEDS ORDERED: METOCLOPRAMIDE HCL 10MG/2ML VIAL IV PRN (15:00)
[2020-01-10] MEDS: DOXAZOSIN MESYLATE 2MG TABLET PO SCH (21:34)
[2020-01-11] VITALS: BP 101/46
[2020-01-11 04:00] VITALS: BP 123/71
[2020-01-11] MEDS: HYDRALAZINE HCL 100MG TABLET PO SCH ×3 (05:57→23:20)
[2020-01-11 08:00] VITALS: BP 103/46
[2020-01-11] MEDS: ENOXAPARIN 30MG/0.3ML SYR SUBCUT SCH ×2 (08:54→23:21)
[2020-01-11] MEDS: LEVETIRACETAM 500MG/5ML CUP PO SCH ×2 (08:54→23:21)
[2020-01-11] MEDS: LOSARTAN POTASSIUM 100 MG TABLET PO SCH (08:54)
[2020-01-11] MEDS: DOCUSATE SODIUM SUGAR FREE 100MG/10ML UDC NG SCH (08:56)
[2020-01-11 11:56] VITALS: BP 106/36
[2020-01-11 16:00] VITALS: BP 122/67
[2020-01-11 20:00] VITALS: BP 116/64
[2020-01-11] MEDS: DOXAZOSIN MESYLATE 2MG TABLET PO SCH (23:21)
[2020-01-12] VITALS: BP 121/59
[2020-01-12 04:00] VITALS: BP 131/62
[2020-01-12] MEDS: HYDRALAZINE HCL 100MG TABLET PO SCH ×3 (05:58→22:20)
[2020-01-12 08:00] VITALS: BP 112/56
[2020-01-12] MEDS: LEVETIRACETAM 500MG/5ML CUP PO SCH ×2 (09:11→20:21)
[2020-01-12] MEDS: LOSARTAN POTASSIUM 100 MG TABLET PO SCH (09:11)
[2020-01-12] MEDS: DOCUSATE SODIUM SUGAR FREE 100MG/10ML UDC NG SCH (09:11)
[2020-01-12] MEDS: ENOXAPARIN 30MG/0.3ML SYR SUBCUT SCH ×2 (09:12→20:22)
[2020-01-12 12:00] VITALS: BP 110/63
[2020-01-12 15:39] VITALS: BP 120/72
[2020-01-12] MEDS: DOXAZOSIN MESYLATE 2MG TABLET PO SCH (20:21)
[2020-01-13] VITALS: BP 92/48
[2020-01-13 04:00] VITALS: BP 124/57
[2020-01-13] MEDS: HYDRALAZINE HCL 100MG TABLET PO SCH ×3 (05:47→21:51)
[2020-01-13 08:00] VITALS: BP 104/57
[2020-01-13] MEDS: LOSARTAN POTASSIUM 100 MG TABLET PO SCH (09:00)
[2020-01-13] MEDS: DOCUSATE SODIUM SUGAR FREE 100MG/10ML UDC NG SCH (09:24)
[2020-01-13] MEDS: LEVETIRACETAM 500MG/5ML CUP PO SCH ×2 (09:24→21:50)
[2020-01-13] MEDS: ENOXAPARIN 30MG/0.3ML SYR SUBCUT SCH ×2 (09:25→21:51)
[2020-01-13 12:00] VITALS: BP 110/57
[2020-01-13 16:00] VITALS: BP 111/49
[2020-01-13 20:00] VITALS: BP 129/73
[2020-01-13] MEDS: DOXAZOSIN MESYLATE 2MG TABLET PO SCH (21:51)
[2020-01-14] VITALS (7 sets, daily range): BP systolic 104–135; BP diastolic 46–77
[2020-01-14] MEDS: HYDRALAZINE HCL 100MG TABLET PO SCH ×3 (05:40→21:58)
[2020-01-14] MEDS: DOCUSATE SODIUM SUGAR FREE 100MG/10ML UDC NG SCH (10:13)
[2020-01-14] MEDS: LEVETIRACETAM 500MG/5ML CUP PO SCH ×2 (10:13→20:53)
[2020-01-14] MEDS: LOSARTAN POTASSIUM 100 MG TABLET PO SCH (10:13)
[2020-01-14] MEDS: ENOXAPARIN 30MG/0.3ML SYR SUBCUT SCH ×2 (10:13→20:53)
[2020-01-14] MEDS: DOXAZOSIN MESYLATE 2MG TABLET PO SCH (20:51)
[2020-01-15] VITALS: BP 129/64
[2020-01-15 04:00] VITALS: BP 121/57
[2020-01-15] MEDS: HYDRALAZINE HCL 100MG TABLET PO SCH ×3 (05:28→21:09)
[2020-01-15 08:00] VITALS: BP 133/65
[2020-01-15] MEDS: LEVETIRACETAM 500MG/5ML CUP PO SCH ×2 (09:35→20:45)
[2020-01-15] MEDS: LOSARTAN POTASSIUM 100 MG TABLET PO SCH (09:35)
[2020-01-15] MEDS: DOCUSATE SODIUM SUGAR FREE 100MG/10ML UDC NG SCH (09:35)
[2020-01-15] MEDS: ENOXAPARIN 30MG/0.3ML SYR SUBCUT SCH ×2 (09:36→20:46)
[2020-01-15 12:00] VITALS: BP 118/77
[2020-01-15 16:00] VITALS: BP 113/58
[2020-01-15] MEDS: DOXAZOSIN MESYLATE 2MG TABLET PO SCH (20:43)
[2020-01-16] VITALS: BP 98/50
[2020-01-16] MEDS: HYDRALAZINE HCL 100MG TABLET PO SCH ×3 (06:00→21:48)
[2020-01-16 08:00] VITALS: BP 110/40
[2020-01-16] MEDS: LEVETIRACETAM 500MG/5ML CUP PO SCH ×2 (09:08→21:17)
[2020-01-16] MEDS: LOSARTAN POTASSIUM 100 MG TABLET PO SCH (09:08)
[2020-01-16] MEDS: ENOXAPARIN 30MG/0.3ML SYR SUBCUT SCH ×2 (09:08→21:17)
[2020-01-16] MEDS: DOCUSATE SODIUM SUGAR FREE 100MG/10ML UDC NG SCH (09:09)
[2020-01-16 16:00] VITALS: BP 119/58
[2020-01-16 20:00] VITALS: BP 115/59
[2020-01-16] MEDS: DOXAZOSIN MESYLATE 2MG TABLET PO SCH (21:00)
[2020-01-17] MEDS: HYDRALAZINE HCL 100MG TABLET PO SCH ×3 (06:04→20:35)
[2020-01-17 08:00] VITALS: BP_SYST 111; BP_SYST 129; BP_DIAS 49; BP_DIAS 62
[2020-01-17] MEDS: DOCUSATE SODIUM SUGAR FREE 100MG/10ML UDC NG SCH (09:16)
[2020-01-17] MEDS: LEVETIRACETAM 500MG/5ML CUP PO SCH ×2 (09:16→20:35)
[2020-01-17] MEDS: ENOXAPARIN 30MG/0.3ML SYR SUBCUT SCH ×2 (09:16→20:36)
[2020-01-17] MEDS ORDERED: LACTULOSE 20G/30ML UDC PO SCH (11:00)
[2020-01-17 12:00] VITALS: BP 133/64
[2020-01-17 16:00] VITALS: BP 119/63
[2020-01-17 20:00] VITALS: BP 136/59
[2020-01-17] MEDS: DOXAZOSIN MESYLATE 2MG TABLET PO SCH (20:35)
[2020-01-18] VITALS: BP 126/53
[2020-01-18 04:00] VITALS: BP 126/75
[2020-01-18] MEDS: HYDRALAZINE HCL 100MG TABLET PO SCH ×3 (06:34→21:37)
[2020-01-18 08:00] VITALS: BP_SYST 134; BP_SYST 145; BP_DIAS 50; BP_DIAS 67
[2020-01-18] MEDS: LEVETIRACETAM 500MG/5ML CUP PO SCH ×2 (08:34→21:36)
[2020-01-18] MEDS: DOCUSATE SODIUM SUGAR FREE 100MG/10ML UDC NG SCH (08:34)
[2020-01-18] MEDS: ENOXAPARIN 30MG/0.3ML SYR SUBCUT SCH ×2 (08:35→21:37)
[2020-01-18 12:00] VITALS: BP 119/59
[2020-01-18 16:00] VITALS: BP 130/64
[2020-01-18 20:00] VITALS: BP 131/52
[2020-01-18] MEDS: DOXAZOSIN MESYLATE 2MG TABLET PO SCH (21:36)
[2020-01-19] VITALS: BP 125/50
[2020-01-19 04:00] VITALS: BP 118/55
[2020-01-19] MEDS: HYDRALAZINE HCL 100MG TABLET PO SCH ×3 (06:03→21:16)
[2020-01-19 08:00] VITALS: BP 115/51
[2020-01-19] MEDS: DOCUSATE SODIUM SUGAR FREE 100MG/10ML UDC NG SCH (09:00)
[2020-01-19] MEDS: LEVETIRACETAM 500MG/5ML CUP PO SCH ×2 (09:24→21:16)
[2020-01-19] MEDS: ENOXAPARIN 30MG/0.3ML SYR SUBCUT SCH ×2 (09:25→21:16)
[2020-01-19 12:00] VITALS: BP 128/76
[2020-01-19 12:31] LABS: HEPATITIS B SURFACE ANTIGEN NEGATIVE
[2020-01-19 16:00] VITALS: BP 122/68
[2020-01-19 20:00] VITALS: BP 134/67
[2020-01-19] MEDS: DOXAZOSIN MESYLATE 2MG TABLET PO SCH (21:15)
[2020-01-20] VITALS: BP 116/55
[2020-01-20 04:00] VITALS: BP 133/58
[2020-01-20] MEDS: HYDRALAZINE HCL 100MG TABLET PO SCH ×3 (05:45→22:17)
[2020-01-20 08:00] VITALS: BP 130/70
[2020-01-20] MEDS: DOCUSATE SODIUM SUGAR FREE 100MG/10ML UDC NG SCH (09:00)
[2020-01-20] MEDS: LEVETIRACETAM 500MG/5ML CUP PO SCH ×2 (09:00→21:59)
[2020-01-20] MEDS: ENOXAPARIN 30MG/0.3ML SYR SUBCUT SCH ×2 (09:00→22:01)
[2020-01-20 12:00] VITALS: BP 114/46
[2020-01-20 16:00] VITALS: BP 111/39
[2020-01-20 20:00] VITALS: BP 134/58
[2020-01-20] MEDS: DOXAZOSIN MESYLATE 2MG TABLET PO SCH (21:59)
[2020-01-21] VITALS: BP 119/88
[2020-01-21] MEDS ORDERED: DOXAZOSIN MESYLATE 2MG TABLET PO SCH (02:20)
[2020-01-21 04:00] VITALS: BP 122/76
[2020-01-21 05:40] LABS: BASOPHILS % 0.8 % (0.0-2.0); EOSINOPHILS % 1.5 % (0.0-5.0); HEMATOCRIT. 35.8 % (42.0-52.0); HEMOGLOBIN. 11.6 g/dL (14.0-18.0); MEAN CORPUSCULAR HEMOGLOBIN 28.4 pg (28.0-32.0); MEAN CORPUSCULAR VOLUME 87.8 fL (80.0-94.0); MEAN PLATELET VOLUME 7.7 fl (7.4-10.4); NEUTROPHILS % 63.7 % (40.0-76.0); PLATELET 236 x1000/uL (130-400); RED BLOOD CELL COUNT 4.08 mill/uL (4.7-6.1); RED CELL DISTRIBUTION WIDTH 15.4 % (11.6-14.6)
[2020-01-21 05:45] LABS: CHLORIDE 114 mEq/L (98-107)
[2020-01-21] MEDS: HYDRALAZINE HCL 100MG TABLET PO SCH ×3 (06:07→22:06)
[2020-01-21] MEDS: ENOXAPARIN 30MG/0.3ML SYR SUBCUT SCH ×2 (09:12→22:05)
[2020-01-21] MEDS: LEVETIRACETAM 500MG/5ML CUP PO SCH ×2 (09:12→22:05)
[2020-01-21] MEDS: DOCUSATE SODIUM SUGAR FREE 100MG/10ML UDC NG SCH (09:12)
[2020-01-21 20:00] VITALS: BP 132/84
[2020-01-22] VITALS: BP 153/84
[2020-01-22 04:00] VITALS: BP 129/80
[2020-01-22] MEDS: HYDRALAZINE HCL 100MG TABLET PO SCH ×3 (06:52→21:56)
[2020-01-22 08:00] VITALS: BP 124/54
[2020-01-22] MEDS: DOCUSATE SODIUM SUGAR FREE 100MG/10ML UDC NG SCH (08:52)
[2020-01-22] MEDS: ENOXAPARIN 30MG/0.3ML SYR SUBCUT SCH ×2 (08:52→21:57)
[2020-01-22] MEDS: LEVETIRACETAM 500MG/5ML CUP PO SCH ×2 (08:52→21:56)
[2020-01-22 12:00] VITALS: BP 121/62
[2020-01-22 16:00] VITALS: BP 104/56
[2020-01-22 20:00] VITALS: BP 115/67
[2020-01-23] VITALS (7 sets, daily range): BP systolic 117–154; BP diastolic 63–68
[2020-01-23] MEDS: HYDRALAZINE HCL 100MG TABLET PO SCH ×3 (06:33→20:44)
[2020-01-23] MEDS: ENOXAPARIN 30MG/0.3ML SYR SUBCUT SCH ×2 (09:02→20:44)
[2020-01-23] MEDS: LEVETIRACETAM 500MG/5ML CUP PO SCH ×2 (09:02→20:43)
[2020-01-23] MEDS: DOCUSATE SODIUM SUGAR FREE 100MG/10ML UDC NG SCH (14:19)
[2020-01-24 00:41] VITALS: BP 133/73
[2020-01-24 04:47] VITALS: BP 129/75
[2020-01-24] MEDS: HYDRALAZINE HCL 100MG TABLET PO SCH ×3 (05:57→20:41)
[2020-01-24 08:00] VITALS: BP 129/64
[2020-01-24] MEDS: LEVETIRACETAM 500MG/5ML CUP PO SCH ×2 (09:14→20:40)
[2020-01-24] MEDS: DOCUSATE SODIUM SUGAR FREE 100MG/10ML UDC NG SCH (09:15)
[2020-01-24] MEDS: ENOXAPARIN 30MG/0.3ML SYR SUBCUT SCH ×2 (09:15→20:40)
[2020-01-24 12:00] VITALS: BP 102/51
[2020-01-24 14:36] LABS: HEMATOCRIT. 34.2 % (42.0-52.0); HEMOGLOBIN. 11.2 g/dL (14.0-18.0); MEAN CORPUSCULAR HEMOGLOBIN 28.9 pg (28.0-32.0); MEAN CORPUSCULAR VOLUME 88.1 fL (80.0-94.0); MEAN PLATELET VOLUME 8.2 fl (7.4-10.4); PLATELET 215 x1000/uL (130-400); RED BLOOD CELL COUNT 3.88 mill/uL (4.7-6.1); RED CELL DISTRIBUTION WIDTH 15.3 % (11.6-14.6)
[2020-01-24 14:45] LABS: CHLORIDE 122 mEq/L (98-107)
[2020-01-24 16:00] VITALS: BP 132/88
[2020-01-24 18:22] LABS: PLATELET ESTIMATE NORMAL
[2020-01-24 20:21] VITALS: BP 124/64
[2020-01-24] MEDS: SODIUM CHLORIDE 0.45% 1,000 ML IV SCH (20:40)
[2020-01-25 00:02] VITALS: BP 125/66
[2020-01-25 04:00] VITALS: BP 141/78
[2020-01-25] MEDS: HYDRALAZINE HCL 100MG TABLET PO SCH ×3 (05:02→21:18)
[2020-01-25 06:16] LABS: CHLORIDE 121 mEq/L (98-107)
[2020-01-25 08:00] VITALS: BP_SYST 128; BP_SYST 137; BP_DIAS 76
[2020-01-25] MEDS: LEVETIRACETAM 500MG/5ML CUP PO SCH ×2 (08:53→21:17)
[2020-01-25] MEDS: DOCUSATE SODIUM SUGAR FREE 100MG/10ML UDC NG SCH (08:53)
[2020-01-25] MEDS: ENOXAPARIN 30MG/0.3ML SYR SUBCUT SCH ×2 (08:53→21:18)
[2020-01-25] MEDS: SODIUM CHLORIDE 0.45% 1,000 ML IV SCH ×3 (08:55→21:28)
[2020-01-25 12:00] VITALS: BP 133/68
[2020-01-25 16:00] VITALS: BP 128/76
[2020-01-25 20:22] VITALS: BP 105/66
[2020-01-26] VITALS (7 sets, daily range): BP systolic 122–154; BP diastolic 38–80
[2020-01-26] MEDS: HYDRALAZINE HCL 100MG TABLET PO SCH ×3 (06:14→21:09)
[2020-01-26 06:24] LABS: CHLORIDE 120 mEq/L (98-107)
[2020-01-26 06:51] LABS: BASOPHILS % 0.7 % (0.0-2.0); EOSINOPHILS % 3.9 % (0.0-5.0); HEMATOCRIT. 37.1 % (42.0-52.0); HEMOGLOBIN. 11.8 g/dL (14.0-18.0); LYMPHOCYTES % 37.3 % (20.0-50.0); MEAN CORPUSCULAR HEMOGLOBIN 28.4 pg (28.0-32.0); MEAN CORPUSCULAR VOLUME 89.2 fL (80.0-94.0); MEAN PLATELET VOLUME 9.3 fl (7.4-10.4); MONOCYTES % 12.7 % (2.0-8.0); NEUTROPHILS % 45.4 % (40.0-76.0); PLATELET 167 x1000/uL (130-400); RED BLOOD CELL COUNT 4.15 mill/uL (4.7-6.1)
[2020-01-26] MEDS: LEVETIRACETAM 500MG/5ML CUP PO SCH ×2 (08:18→21:09)
[2020-01-26] MEDS: DOCUSATE SODIUM SUGAR FREE 100MG/10ML UDC NG SCH (08:18)
[2020-01-26] MEDS: ENOXAPARIN 30MG/0.3ML SYR SUBCUT SCH ×2 (08:25→21:08)
[2020-01-27 00:17] VITALS: BP 138/61
[2020-01-27 04:00] VITALS: BP 142/65
[2020-01-27] MEDS: HYDRALAZINE HCL 100MG TABLET PO SCH ×3 (06:45→21:07)
[2020-01-27 08:00] VITALS: BP 113/55
[2020-01-27] MEDS: ENOXAPARIN 30MG/0.3ML SYR SUBCUT SCH ×2 (09:00→21:06)
[2020-01-27] MEDS: DOCUSATE SODIUM SUGAR FREE 100MG/10ML UDC NG SCH (09:00)
[2020-01-27 12:00] VITALS: BP 135/55
[2020-01-27 16:00] VITALS: BP 129/64
[2020-01-27 20:19] VITALS: BP 141/74
[2020-01-28] VITALS (7 sets, daily range): BP systolic 126–145; BP diastolic 42–71
[2020-01-28] MEDS: HYDRALAZINE HCL 100MG TABLET PO SCH ×3 (05:45→22:32)
[2020-01-28 07:07] LABS: BASOPHILS % 0.9 % (0.0-2.0); EOSINOPHILS % 2.2 % (0.0-5.0); HEMATOCRIT. 34.1 % (42.0-52.0); HEMOGLOBIN. 11.3 g/dL (14.0-18.0); LYMPHOCYTES % 30.1 % (20.0-50.0); MEAN CORPUSCULAR HEMOGLOBIN 28.7 pg (28.0-32.0); MEAN CORPUSCULAR VOLUME 86.6 fL (80.0-94.0); MEAN PLATELET VOLUME 9.5 fl (7.4-10.4); MONOCYTES % 8.9 % (2.0-8.0); NEUTROPHILS % 57.9 % (40.0-76.0); RED BLOOD CELL COUNT 3.93 mill/uL (4.7-6.1); RED CELL DISTRIBUTION WIDTH 14.8 % (11.6-14.6)
[2020-01-28 07:09] LABS: CHLORIDE 118 mEq/L (98-107)
[2020-01-28] MEDS: DOCUSATE SODIUM SUGAR FREE 100MG/10ML UDC NG SCH (09:17)
[2020-01-28] MEDS: ENOXAPARIN 30MG/0.3ML SYR SUBCUT SCH (09:18)
[2020-01-28 12:38] LABS: PLATELET 169 x1000/uL (130-400)
[2020-01-28] MEDS ORDERED: SODIUM POLYSTYRENE SULFONATE 15 G/60 ML BOT PO NR (13:00)
[2020-01-29] VITALS: BP 124/62
[2020-01-29 04:00] VITALS: BP 135/68
[2020-01-29] MEDS: HYDRALAZINE HCL 100MG TABLET PO SCH ×3 (07:40→22:40)
[2020-01-29 08:00] VITALS: BP 133/42
[2020-01-29] MEDS: DOCUSATE SODIUM SUGAR FREE 100MG/10ML UDC NG SCH (09:38)
[2020-01-29] MEDS: ENOXAPARIN 40MG/0.4ML SYR SUBCUT SCH (09:39)
[2020-01-29 22:25] VITALS: BP 121/60
[2020-01-30] VITALS: BP 143/63
[2020-01-30 04:00] VITALS: BP 144/72
[2020-01-30] MEDS: HYDRALAZINE HCL 100MG TABLET PO SCH ×3 (05:46→21:13)
[2020-01-30] MEDS: DOCUSATE SODIUM SUGAR FREE 100MG/10ML UDC NG SCH (09:31)
[2020-01-30] MEDS: ENOXAPARIN 40MG/0.4ML SYR SUBCUT SCH (09:31)
[2020-01-30 12:00] VITALS: BP 145/56
[2020-01-30 16:00] VITALS: BP 150/79
[2020-01-30 20:00] VITALS: BP 128/67
[2020-01-31] VITALS: BP 139/64
[2020-01-31 04:00] VITALS: BP 125/83
[2020-01-31] MEDS: HYDRALAZINE HCL 100MG TABLET PO SCH ×3 (05:12→21:49)
[2020-01-31 08:00] VITALS: BP 122/59
[2020-01-31 08:19] LABS: CHLORIDE 117 mEq/L (98-107)
[2020-01-31] MEDS: DOCUSATE SODIUM SUGAR FREE 100MG/10ML UDC NG SCH (08:49)
[2020-01-31] MEDS: ENOXAPARIN 40MG/0.4ML SYR SUBCUT SCH (08:50)
[2020-01-31 10:04] LABS: BASOPHILS % 0.7 % (0.0-2.0); EOSINOPHILS % 2.8 % (0.0-5.0); HEMATOCRIT. 36.8 % (42.0-52.0); HEMOGLOBIN. 11.9 g/dL (14.0-18.0); LYMPHOCYTES % 36.1 % (20.0-50.0); MEAN CORPUSCULAR HEMOGLOBIN 28.4 pg (28.0-32.0); MEAN CORPUSCULAR VOLUME 87.7 fL (80.0-94.0); MEAN PLATELET VOLUME 8.8 fl (7.4-10.4); MONOCYTES % 11.2 % (2.0-8.0); NEUTROPHILS % 49.2 % (40.0-76.0); PLATELET 187 x1000/uL (130-400); RED CELL DISTRIBUTION WIDTH 14.9 % (11.6-14.6)
[2020-01-31 12:00] VITALS: BP 132/95
[2020-01-31 16:00] VITALS: BP 112/67
[2020-01-31 20:00] VITALS: BP 99/64
[2020-02-01] VITALS (7 sets, daily range): BP systolic 125–144; BP diastolic 49–70
[2020-02-01] MEDS: HYDRALAZINE HCL 100MG TABLET PO SCH ×3 (05:49→22:40)
[2020-02-01] MEDS: DOCUSATE SODIUM SUGAR FREE 100MG/10ML UDC NG SCH (08:43)
[2020-02-01] MEDS: ENOXAPARIN 40MG/0.4ML SYR SUBCUT SCH (08:43)
[2020-02-02] VITALS: BP 118/58
[2020-02-02] MEDS: HYDRALAZINE HCL 100MG TABLET PO SCH ×3 (06:01→21:58)
[2020-02-02 07:02] VITALS: BP 121/66
[2020-02-02] MEDS: DOCUSATE SODIUM SUGAR FREE 100MG/10ML UDC NG SCH (08:28)
[2020-02-02] MEDS: ENOXAPARIN 40MG/0.4ML SYR SUBCUT SCH (08:28)
[2020-02-02 11:07] LABS: BASOPHILS % 0.6 % (0.0-2.0); EOSINOPHILS % 2.8 % (0.0-5.0); HEMATOCRIT. 33.6 % (42.0-52.0); LYMPHOCYTES % 33.9 % (20.0-50.0); MEAN CORPUSCULAR HEMOGLOBIN 28.3 pg (28.0-32.0); MEAN CORPUSCULAR VOLUME 86.5 fL (80.0-94.0); MEAN PLATELET VOLUME 8.9 fl (7.4-10.4); MONOCYTES % 10.6 % (2.0-8.0); NEUTROPHILS % 52.1 % (40.0-76.0); PLATELET 186 x1000/uL (130-400); RED BLOOD CELL COUNT 3.89 mill/uL (4.7-6.1); RED CELL DISTRIBUTION WIDTH 15.1 % (11.6-14.6)
[2020-02-02 11:40] LABS: CHLORIDE 112 mEq/L (98-107)
[2020-02-02 20:00] VITALS: BP 144/69
[2020-02-02] MEDS: LEVETIRACETAM 500MG TABLET PO SCH (21:56)
[2020-02-03] VITALS: BP 137/60
[2020-02-03 04:00] VITALS: BP 116/56
[2020-02-03] MEDS: HYDRALAZINE HCL 100MG TABLET PO SCH ×2 (06:45→14:47)
[2020-02-03 08:00] VITALS: BP 110/57
[2020-02-03] MEDS: LEVETIRACETAM 500MG TABLET PO SCH (08:39)
[2020-02-03] MEDS: ENOXAPARIN 40MG/0.4ML SYR SUBCUT SCH (08:39)
[2020-02-03] MEDS: DOCUSATE SODIUM SUGAR FREE 100MG/10ML UDC NG SCH (08:39)
[2020-02-03 12:00] VITALS: BP 126/73
[2020-02-03] MEDS ORDERED: HYDR100T26 PO (15:41)
[2020-02-03 15:57] VITALS: BP 126/73
[2020-02-03 16:00] VITALS: BP 96/60
== END 2020-02-03 18:20 | DRG 720 ==
LOC: ER 15:19 → ENRESERV 20:42 → MICUNO 21:26 → 5EST 12-03 19:55 → 6EST 01-12 23:24 → 6WST 01-23 17:39 → 6EST 01-28 13:56
PROVIDERS: ADMIT Internal Medicine; ATTEND Internal Medicine
PROC: 5A1955Z Respiratory Ventilation, Greater than 96 Consecutive Hours (ICD-10-PCS; principal; 2019-11-29)
PROC: 0BH17EZ Insertion of Endotracheal Airway into Trachea, Via Natural or Artificial Opening (ICD-10-PCS; 2019-11-29)
PROC: 0DH68UZ Insertion of Feeding Device into Stomach, Via Natural or Artificial Opening Endoscopic (ICD-10-PCS; 2019-12-17)
DX: A41.1 Sepsis due to other specified staphylococcus (principal); J96.01 Acute respiratory failure with hypoxia; J69.0 Pneumonitis due to inhalation of food and vomit; R65.21 Severe sepsis with septic shock; E46 Unspecified protein-calorie malnutrition; G92 Toxic encephalopathy; I42.2 Other hypertrophic cardiomyopathy; R13.12 Dysphagia, oropharyngeal phase; J44.1 Chronic obstructive pulmonary disease with (acute) exacerbation; K20.9 Esophagitis, unspecified; E78.5 Hyperlipidemia, unspecified; E87.0 Hyperosmolality and hypernatremia; F03.90 Unspecified dementia, unspecified severity, without behavioral disturbance, psychotic disturbance, mood disturbance, and anxiety; G40.909 Epilepsy, unspecified, not intractable, without status epilepticus; I11.0 Hypertensive heart disease with heart failure; I47.1 Supraventricular tachycardia; I48.92 Unspecified atrial flutter; I50.32 Chronic diastolic (congestive) heart failure; J84.89 Other specified interstitial pulmonary diseases; K44.9 Diaphragmatic hernia without obstruction or gangrene; N40.0 Benign prostatic hyperplasia without lower urinary tract symptoms; E11.65 Type 2 diabetes mellitus with hyperglycemia; X58.XXXA Exposure to other specified factors, initial encounter; R55 Syncope and collapse; S90.822A Blister (nonthermal), left foot, initial encounter; S81.811A Laceration without foreign body, right lower leg, initial encounter; Z20.828 Contact with and (suspected) exposure to other viral communicable diseases; Z78.1 Physical restraint status; Z68.26 Body mass index [BMI] 26.0-26.9, adult; Z86.73 Personal history of transient ischemic attack (TIA), and cerebral infarction without residual deficits; Z93.1 Gastrostomy status; Y93.89 Activity, other specified; Y92.89 Other specified places as the place of occurrence of the external cause; Y99.8 Other external cause status; Z79.899 Other long term (current) drug therapy
CPT/HCPCS: 31500; 36415; 36556; 36600; 70551; 71045; 74018; 80048; 80051; 80053; 80061; 80162; 80202; 80305; 80320; 81003; 82140; 82375; 82550; 82553; 82805; 82962; 83036; 83605; 83735; 83880; 84132; 84145; 84295; 84443; 84484; 85025; 85027; 85379; 86703; 86803; 87070; 87106; 87340; 87635; 87804; 92610; 93005; 93306; 93880; 93923; 93970; 93971; 94003; 94640; 94667; 97110; 97162; 97164; 97166; 97530; 99291; C9113; J0692; J1160; J1644; J1650; J1953; J2060; J2250; J2405; J2543; J2765; J3010; J3370; J3490; J7030; J7050; J7060; J7608; J7626; G0480; U0003-CS